=== PATIENT | female | born 1960 | race Caucasian/White ===

== ENCOUNTER 2020-06-06 13:32 | Emergency (ER) | payer MEDICAID, SELFPAY ==
[2020-06-06 14:00] VITALS: BP 147/88; PULSE 104; RESP 17; TEMP 36.7; O2SAT 95; BMI 31.8
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
--- NOTE | 2020-06-06 15:56 | PC.NURSE ---
WAITING FOR ENGINE REPAIRER SERVICE FOR D/C.
[2020-06-06 16:00] VITALS: BP 136/77; PULSE 84; RESP 16; O2SAT 97
== END 2020-06-06 16:09 | disposition home or self-care (01) ==
PROVIDERS: Emergency Provider Emergency Medicine; PCP Internal Medicine
DX: S00.531A Contusion of lip, initial encounter (principal); S00.511A Abrasion of lip, initial encounter; Y93.9 Activity, unspecified; V43.52XA Car driver injured in collision with other type car in traffic accident, initial encounter; R51.9 Headache, unspecified; Y92.410 Unspecified street and highway as the place of occurrence of the external cause; Y99.9 Unspecified external cause status
CPT/HCPCS: 99283; 99284

== ENCOUNTER 2021-09-13 08:40 | Emergency (ER) | payer MEDICAID, SELFPAY ==
--- NOTE | ~2021-09-13 | XR_ITS ---
EXAMINATION: LEFT HAND. CLINICAL INFORMATION: Injury. COMPARISON: None TECHNIQUE: 4 views. FINDINGS: There is loss of PIP and DIP joint space with periarticular spurring. There is no visible acute fracture, dislocation or subluxation seen. The soft tissues are normal. XR/XR hand wrist LT IMPRESSION: Unremarkable left hand exam.
[2021-09-13 09:00] VITALS: BP 152/85; PULSE 100; RESP 18; TEMP 36.6; O2SAT 95; BMI 33.0
--- NOTE | 2021-09-13 09:58 | ED.EXTPRO ---
HPI - Extremity Problem General Chief complaint: Extremity Injury, Upper Stated complaint: ARM PAIN Time Seen by Provider: 09/13/21 09:58 Source: patient and hourly sign language interpreter Mode of arrival: ambulatory Limitations: language barrier History of Present Illness HPI Narrative: 60-year-old female is here today for complaining of last wrist pain. Patient reports that on Monday she was cleaning the house picking up heavy objects with her both hands. Also patient reports that she was bringing in heavy groceries and on Monday patient started with left wrist pain, patient apply warm compress. Yesterday patient will call up with increased swelling and pain. Patient denies any injuries to her wrist. No previous injuries. MD Complaint: extremity pain, extremity swelling, joint swelling and joint paint Onset (ago): day(s) Pain Consistency: constant Related Data Home Medications Medication Instructions Recorded Confirmed albuterol sulfate 90 mcg/actuation 2 puff INHALATION Q4-6H PRN 07/08/20 08/31/20 aerosol inhaler amlodipine 10 mg tablet 10 mg PO DAILY 07/08/20 08/31/20 cholecalciferol (vitamin D3) 50 50 mcg PO DAILY 07/08/20 08/31/20 mcg (2,000 unit) capsule (Vitamin D3) Previous Rx's Medication Instructions Recorded ibuprofen 600 mg tablet 600 mg PO Q8H PRN #20 tab 09/13/21 Allergies Allergy/AdvReac Type Severity Reaction Status Date / Time No Known Allergies Allergy Verified 06/06/20 14:03 Review of Systems Review of Systems: Constitutional : No Weight loss, No Fever, No Chills, No Night Sweats, No Fatigue, No Malaise ENT/Mouth : No Hearing loss, No Ear Pain, No Nasal Congestion, No Sinus Pain, No Hoarseness, No sore throat, No Rhinorrhea, No Swallowing Difficulty Eyes: No Eye Pain, No Swelling, No Redness, No Foreign Body, No Discharge, No Vision Changes Cardiovascular : No Chest Pain, No SOB, No Dyspnea on Exertion, No Orthopnea, No Edema, No Palpitations Respiratory : No Cough, No Sputum, No Wheezing, No Smoke Exposure, No Dyspnea Gastrointestinal : No Nausea, No Vomiting, No Diarrhea, No Constipation, No abdominal Pain, No Hematochezia, No Melena Genitourinary : no irregular bleeding, No Dysuria, No Urinary Frequency, No Hematuria, No Urinary Incontinence, No Urgency, No Flank Pain, No Urinary Flow Changes, No Hesitancy Musculoskeletal : joint pain, Myalgias Joint Swelling, left wrist pain Skin : No Skin Lesions, No rash Neuro : No Weakness, No Numbness, No Paresthesias, No Loss of Consciousness, No Dizziness, No Headache Psych : No Anxiety/Panic, No Depression, No SI/HI/AH/VH, No Social Issues, Yes all other systems are reviewed and are negative [facility] Past Medical History Medical History (Updated 09/13/21 @ 11:51 by Chely Goodwin SAFETY ADMIN ASSISTANT-) Asthma History of depression HTN (hypertension) Surgical History History of tubal ligation No significant past surgical history Social History Social History Are you a primary clinical care manager to a significant other at home: No Do you presently have visiting nurse or other home services: No Advance Directives: No Advance Directives Information Provided: No Physical Exam Vital Signs: Vital Signs: Last Vital Signs Temp 97.8 F 09/13/21 09:00 Pulse 100 09/13/21 09:00 Resp 18 09/13/21 09:00 BP 152/85 H 09/13/21 09:00 Pulse Ox 95 09/13/21 09:00 BMI result Body Mass Index 33.0 Const: General: healthy appearing, no acute distress and well developed Nutritional Appearance: well nourished Orientation/consciousness: patient oriented x3 HENMT: Head: Yes normal to inspection, Yes normocephalic and Yes atraumatic Face and sinus: Yes normal facial exam Mouth: Normal oral and palatal mucosa present Throat: Yes posterior oropharynx normal, Yes tonsils normal and Yes uvula midline Eyes: General: appearance normal, both eyes and all related structures Neck: Neck: Yes normal visual inspection, Yes full ROM and Yes trachea midline Thyroid: Thyroid normal Resp: Effort & Inspection: normal respiratory effort, able to speak in complete sentences, no tracheal deviation and symmetric chest movement Auscultation: clear to auscultation bilaterally Cardio: Jugular venous distension: no JVD Rate: regular rate Heart sounds: S1 normal heart sound present, S2 normal heart sound present, no gallops and no murmurs GI: Inspection: Yes normal to inspection and No distended Palpation (GI): Soft to palpation, not firm, nontender and No hepatosplenomegaly present Auscultation: normal bowel sounds : General: Yes no CVA tenderness Back/Spine/Pelvis: Back: no CVA tenderness Skin: General skin exam: elasticity normal, turgor normal and dry skin Neuro: General: patient oriented x3 Extrem: Right upper extremity: normal to inspection, full ROM and normal capillary refill Left upper extremity: normal capillary refill, edema and wrist (swelling) Psych: Appearance: grossly normal Mental Status: mental status grossly normal Speech and movement: Normal speech and movement present Affect: normal affect Attitude: cooperative Thought process: Normal thought process present Thought content: Normal thought content present Insight: Good insight present (Psych) Judgement: Good judgement present (Psych) Course Course Course Narrative: Patient is here today for complaining of left wrist pain and swelling. Patient was cleaning her house on Monday and bringing groceries in. Monday woke up with left wrist pain. Denies any injuries to this wrist in the past few days. No previous injuries to her wrist. Patient woke up with swelling to her left wrist yesterday. Will x-ray her wrist. Patient took Ibuprofen at home Reevaluation(s) Reevaluation #1: X-ray negative for fracture. Will send patient home. Wrist sprain apply to her left wrist. Patient will follow-up with orthopedics. Phone number provided. Ibuprofen script will be sent to pharmacy. Patient was encouraged to keep her hand up when she is resting MDM - Extremity (Nontraumatic) Imaging Data Left wrist x-ray: Attestation: I personally reviewed and interpreted this imaging study as follows: Radiologist's impression: FINDINGS: There is loss of PIP and DIP joint space with periarticular spurring. There is no visible acute fracture, dislocation or subluxation seen. The soft tissues are normal.? XR/XR hand wrist LT IMPRESSION: Unremarkable left hand exam.? Discharge Plan Discharge Clinical Impression: Sprain and strain of wrist Patient Disposition: Home, Self-Care Instructions: Wrist Sprain (ED) Additional Instructions: Te vieron aqu? hoy por dolor en la mu?eca izquierda. La radiograf?a no muestra fractura. Aseg?rese de mantener la f?moy para la mu?eca puesta. Puede ifarh ibuprofeno para el dolor. Por favor llame al m?dico ortop?dico para irma carter. Prescriptions: New ibuprofen 600 mg tablet 600 mg PO Q8H PRN (Reason: pain) Qty: 20 0RF No Action amlodipine 10 mg Tablet 10 mg PO DAILY 0RF cholecalciferol (vitamin D3) [Vitamin D3] 50 mcg (2,000 unit) Capsule 50 mcg PO DAILY 0RF albuterol sulfate 90 mcg/actuation Hfa Aerosol Inhaler 2 puff INHALATION Q4-6H PRN (Reason: Wheezing) 0RF Referrals: Keely Townsend MD [Primary Care Provider] - 2 days Chiquita Shields MD [Physician] - 5 days (Left wrist sprain)
== END 2021-09-13 12:03 | disposition home or self-care (01) ==
PROVIDERS: Emergency Provider Emergency Medicine; PCP Internal Medicine
DX: S63.502A Unspecified sprain of left wrist, initial encounter (principal); M25.532 Pain in left wrist; Y29.XXXA Contact with blunt object, undetermined intent, initial encounter; Y93.9 Activity, unspecified; Y92.009 Unspecified place in unspecified non-institutional (private) residence as the place of occurrence of the external cause; Y99.9 Unspecified external cause status; Z79.899 Other long term (current) drug therapy
CPT/HCPCS: 73110; 73130; 99283

== ENCOUNTER 2021-09-20 14:40 | Outpatient (REF) | payer MEDICAID, SELFPAY ==
--- NOTE | ~2021-09-20 | US_ITS ---
EXAMINATION: US PELVIS CLINICAL INFORMATION: Postmenopausal bleeding. COMPARISON: None TECHNIQUE: Ultrasound of the pelvis is performed using both transabdominal and transvaginal transducers along with Doppler. Transvaginal imaging is performed due to inadequate visualization transabdominally. FINDINGS: UTERUS: The uterus is anteverted and anteflexed and measures 7.97 x 4.10 x 5.70 cm. The double wall endometrial thickness is 0.45 mm. The uterus is smooth in contour and has normal myometrial echogenicity. There are at least 3 hypoechoic lesions seen. 1. Lesion in the posterior body of uterus measures 1.13 x 0.79 x 1.67 cm. 2. Lesion in the lower posterior body of uterus measures 2.02 x 1.61 x 1.53 cm. 3. Lesion in the mid posterior body of uterus measures 1.59 x 1.65 x 1.51 cm. Adnexa: Both ovaries are visualized. There is normal color flow to the adnexa. There is no ovarian torsion. There is no pelvic ascites or fluid collection. Right ovary measures 2.15 x 1.11 x 1.77 cm and volume 2.21 mL. Left ovary measures 1.60 x 1.28 x 1.23 cm and volume 1.32 mL. There is no free fluid in the cul-de-sac. US/US pelvic and transvaginal IMPRESSION: Multiple uterine fibroids. Unremarkable ovaries. No free fluid in cul-de-sac.
== END 2021-09-20 14:41 | disposition home or self-care (01) ==
LOC: HO.HMGCX 14:40
PROVIDERS: PCP Internal Medicine; Visit Provider Advanced Practice Midwife
DX: N95.0 Postmenopausal bleeding (principal)
CPT/HCPCS: 76830; 76856

== ENCOUNTER → 2021-09-29 13:53 | Outpatient (BNVA) | payer MEDICAID, SELFPAY | PROVIDERS: PCP Internal Medicine; Visit Provider Physician Assistant | DX: M65.4 Radial styloid tenosynovitis [de Quervain] (principal) | CPT/HCPCS: 99202 ==

== ENCOUNTER 2021-10-13 11:06 | Outpatient (REF) | payer MEDICAID, SELFPAY ==
[2021-10-16 17:02] LABS: HPV mRNA E6/E7 rflx Not Detected (Not Detected)
== END 2021-10-13 11:07 | disposition home or self-care (01) ==
LOC: HO.LAB 11:06
PROVIDERS: Visit Provider Obstetrics & Gynecology
DX: Z12.4 Encounter for screening for malignant neoplasm of cervix (principal); Z11.51 Encounter for screening for human papillomavirus (HPV); N95.0 Postmenopausal bleeding
CPT/HCPCS: 87624; 88142; 99202

== ENCOUNTER 2021-11-02 08:48 | Outpatient (REF) | payer MEDICAID, SELFPAY | END 2021-11-02 08:49 | disposition home or self-care (01) | LOC: HO.LAB 08:48 | PROVIDERS: Visit Provider Obstetrics & Gynecology | DX: N95.0 Postmenopausal bleeding (principal) | CPT/HCPCS: 58100; 88305 ==

== ENCOUNTER → 2021-11-17 13:13 | Outpatient (BNVA) | payer MEDICAID, SELFPAY | PROVIDERS: Visit Provider Obstetrics & Gynecology | DX: N95.0 Postmenopausal bleeding (principal); D25.9 Leiomyoma of uterus, unspecified; Z98.890 Other specified postprocedural states | CPT/HCPCS: 99212 ==

== ENCOUNTER 2021-12-08 14:58 | Outpatient (REF) | payer MEDICAID, SELFPAY ==
--- NOTE | ~2021-12-08 | US_ITS ---
EXAMINATION: US PELVIS CLINICAL INFORMATION: Myoma. COMPARISON: Ultrasound pelvis 09/20/2021. TECHNIQUE: Ultrasound of the pelvis is performed using both transabdominal and transvaginal transducers along with Doppler. Transvaginal imaging is performed due to inadequate visualization transabdominally. FINDINGS: UTERUS: The uterus is anteverted, anteflexed and measures 8.3 x 3.7 x 5.3 cm. The double wall endometrial thickness is 0.6 mm. The uterus is smooth in contour and has normal myometrial echogenicity. There are several hypoechoic lesions consistent with fibroids. 1. Lesion in mid posterior body of uterus measures 2.5 x 1.8 x 2.6 cm. Previously measured 2.0 x 1.6 x 1.5 cm. 2. Lesion in the mid posterior body of uterus measures 1.4 x 1.0 x 1.4 cm. Previously it measured 1.6 x 1.7 x 1.5 cm. 3. Lesion in the upper posterior body of uterus measures 1.2 x 0.9 x 1.3 cm. Previously it measured 1.1 x 0.8 x 1.7 cm. ADNEXA: Both ovaries are visualized. There is normal color flow to the adnexa. There is no ovarian torsion. There is no pelvic ascites or fluid collection. Right ovary measures 1.5 x 0.9 x 1.2 cm. There are small echogenic calcifications within. Previously right ovary measured 2.2 x 1.8 x 1.8 cm. Left ovary measures 1.7 x 1.1 x 1.3 cm. There are a few scattered echogenic calcifications. No focal lesion seen. Previously left ovary measured 1.6 x 1.3 x 1.2 cm. US/US pelvic and transvaginal IMPRESSION: At least 3 uterine fibroids which are stable or minimally increased. No additional fibroid seen. Small echogenic calcifications both ovaries. No anechoic cyst or solid mass is seen. There is no free fluid in cul-de-sac.
== END 2021-12-08 14:59 | disposition home or self-care (01) ==
LOC: HO.US 14:58
PROVIDERS: Visit Provider Obstetrics & Gynecology
DX: D21.9 Benign neoplasm of connective and other soft tissue, unspecified (principal)
CPT/HCPCS: 76830; 76856

== ENCOUNTER → 2021-12-22 13:44 | Outpatient (BNVA) | payer MEDICAID, SELFPAY | PROVIDERS: PCP Internal Medicine; Visit Provider Obstetrics & Gynecology | DX: D21.9 Benign neoplasm of connective and other soft tissue, unspecified (principal); N95.0 Postmenopausal bleeding | CPT/HCPCS: 99212 ==

== ENCOUNTER 2021-12-23 09:18 | Outpatient (REF) | payer MEDICAID, SELFPAY ==
--- NOTE | ~2021-12-23 | XR_ITS ---
EXAMINATION: XR FOOT, LEFT CLINICAL INFORMATION: Left foot pain COMPARISON: None TECHNIQUE: AP, lateral, and oblique views of the left foot. FINDINGS: The bones and soft tissues are normal. No fracture. There is plantar calcaneal spur Alignment is anatomic. Joint spaces are maintained. XR/XR foot LT min 3V IMPRESSION: Plantar calcaneal spur.
--- NOTE | ~2021-12-23 | XR_ITS ---
EXAMINATION: XR HAND, RIGHT CLINICAL INFORMATION: The liver finger of middle finger COMPARISON: None TECHNIQUE: PA, lateral, and oblique views of the right hand. FINDINGS: The bones and soft tissues are normal. No fracture. Alignment is anatomic. Joint spaces are maintained. No erosions or soft tissue calcifications. XR/XR hand RT min 3V IMPRESSION: Normal right hand.
== END 2021-12-23 09:19 | disposition home or self-care (01) ==
LOC: HO.XRAY 09:18
PROVIDERS: PCP Internal Medicine; Visit Provider Internal Medicine
DX: M65.331 Trigger finger, right middle finger (principal); M79.672 Pain in left foot
CPT/HCPCS: 73130; 73630

== ENCOUNTER 2021-12-23 10:00 | Outpatient (RCR) | payer MEDICAID, SELFPAY ==
--- NOTE | 2021-12-06 11:42 | MHC.OT.EP ---
[address] [phone] Occupational Therapy Plan of Care Date of Evaluation: 12/06/21 Diagnosis: B/L hand pain; Left CTS, B/L trigger fingers Assessment: 61 yo female referred to OT w/ radial tenosynovitis and presents w/ c/o bilateral hand pain, left worse than right, with increase in symptoms and numbness/cramping during the nighttime. During assessment, she is somewhat vague about specific aggravating activities and qualifying/describing pain, but signs/symptoms appear to be consistent with carpal tunnel syndrome (with positive Tinel's and Phalen's on left) and trigger fingers in both long fingers, right side grade 2/3 and left grade 1. No muscle atrophy or weakness noted at this time, she has full ROM but is guarded due to pain in digits. We will continue OT for treatment of pain and numbness as well as education for joint protection and activity modification. Frequency and Duration: The patient will be seen 2x/wk for 4 weeks Short Term Goals: Ind w/ nighttime orthosis wear (oval 8 and resting wrist) Ind w/ median nerve glides Ind w/ activity modification to minimize gripping Intermediate Goals: Pt to report ease in nighttime symptoms with use of orthosis Pt to demo full passive composite fist w/ ease (assisted by other hand) Progress to full upper body strengthening program Pt to report trigger free for >1 week in right hand Treatment Plan: Therapeutic Exercise Therapeutic Activity Home Exercise Program Splinting Patient Education ADL Training Paraffin Fluidotherapy MHP Cold Packs Joint Mobilization Soft Tissue Mobilization Kinesiotaping Electronically Signed By: RAMY Hernandez/L CHT Please Sign and return to therapist. Thank you once again for your referral.
--- NOTE | 2021-12-28 10:18 | MHC.OT.DC ---
[address] [phone] F: [phone] Occupational Therapy Discharge Note Provider: Deidre Singh PA-C Diagnosis: B/L hand pain; Left CTS, B/L trigger fingers Date of Evaluation: 12/06/21 Date of Discharge: 12/28/21 Treatments to Date: 6 Discharge Status: Improved Function Independent with HEP Discharge Summary: Holly was referred to OT for B/L hand pain due to left CTS and B/L trigger fingers. She reports overall improvements in CTS symptoms and has good follow through w/ nighttime orthosis wear and nerve glides. She also has less frequency of triggering fingers, but still occurring daily and is inconsistent w/ oval 8 or MCP block wear. She is Ind w/ self management of CTS and would benefit from surgical consultation if interested for trigger fingers. Electronically Signed By: Mitzi Jeff, OTR/L CHT Please Sign and return to therapist, thank you for your referral.
== END 2021-12-28 10:18 | disposition home or self-care (01) ==
LOC: HO.OT 10:00
PROVIDERS: PCP Internal Medicine; Visit Provider Physician Assistant
DX: M65.4 Radial styloid tenosynovitis [de Quervain] (principal)
CPT/HCPCS: 29130; 97018; 97035; 97110; 97140; 97166; 97760

== ENCOUNTER 2022-01-14 08:39 | Day surgery (SDC) | payer MEDICAID, SELFPAY ==
[2021-12-27 16:07] VITALS: BMI 34.0
--- NOTE | 2021-12-30 08:45 | P.CONAN_ITS ---
HPI - Anesthesia Eval Consult details Narrative: 61yo F for D&C Hysteroscopy, possible polypectomy/myomectomy PMFSH Active Problems Active Problems: All Active Problems (Updated 10/13/21 @ 11:27 by Dre Abebe MD) Myoma (Acute) Postmenopausal bleeding (Acute) De Quervain's tenosynovitis, left (Acute) Past Medical History Medical History Asthma History of depression HTN (hypertension) Surgical History Surgical History History of tubal ligation No significant past surgical history Social History Social History Are you a primary student career development specialist to a significant other at home: No Do you presently have visiting nurse or other home services: No Patient Tobacco Use Status: Never used Tobacco Meds Allergies Allergy/AdvReac Type Severity Reaction Status Date / Time No Known Allergies Allergy Verified 01/14/22 09:07 Home Medications Medication Instructions Recorded Confirmed Last Taken Type albuterol sulfate 90 mcg/actuation 2 puff inhalation Q4-6H PRN 07/08/20 08/31/20 Unknown History aerosol inhaler Wheezing amlodipine 10 mg tablet 10 mg PO DAILY 07/08/20 08/31/20 01/14/22 History cholecalciferol (vitamin D3) 50 50 mcg PO DAILY 07/08/20 08/31/20 Unknown History mcg (2,000 unit) capsule (Vitamin D3) Exam Exam Date and Time: December 30, 2021 0845 Height,Weight and Vital Signs: Height 5 ft 2 in Weight 84.368 kg Assessment and Plan Assessment Anesthesia Assessment: Chart Reviewed
[2022-01-14] VITALS (7 sets, daily range): BP systolic 115–148; BP diastolic 78–94; PULSE 81–95; RESP 16–20; TEMP 36.3–36.8; O2SAT 94–99
[2022-01-14] MEDS: Lactated Ringers 1,000 ML 100 ML IVCONT (09:05)
--- NOTE | 2022-01-14 09:24 | HO.ANESPROP2 ---
[facility] Active Problems Active Problems: All Active Problems (Updated 10/13/21 @ 11:27 by Dre Abebe MD) Myoma (Acute) Postmenopausal bleeding (Acute) De Quervain's tenosynovitis, left (Acute) Past Medical History Medical History Asthma History of depression HTN (hypertension) Family History Family history of problems with anesthesia: No Surgical History Surgical History History of tubal ligation No significant past surgical history History of Problems with Anesthesia: No Social History Social History Are you a primary vehicle care specialist to a significant other at home: No Do you presently have visiting nurse or other home services: No Patient Tobacco Use Status: Never used Tobacco Are you DNR?: No Advance Directives: No Advance Directives Information Provided: Yes Meds Allergies Allergy/AdvReac Type Severity Reaction Status Date / Time No Known Allergies Allergy Verified 01/14/22 09:07 Active Medications: Current Medications Albuterol Sulfate (Albuterol Sulfate (0.083%) 2.5 Mg/3 Ml Vial.Neb) 2.5 mg INHALE ONCE PRN PRN Reason: Shortness of Breath/Wheezing Lactated Ringer's (Lr) 1,000 mls @ 100 mls/hr IVCONT .Q10H CHARLES Last Admin: 01/14/22 09:05 Dose: 100 mls/hr Ondansetron HCl (Ondansetron Hcl 4 Mg/2 Ml Vial) 4 mg IVPUSH ONCE PRN PRN Reason: Nausea and Vomiting Oxycodone HCl (Oxycodone Hcl Immed Release 5 Mg Tablet) 5 mg PO ONCE PRN PRN Reason: Pain, Severe (Pain Scale 7-10) Home Medications Medication Instructions Recorded Confirmed Last Taken Type albuterol sulfate 90 mcg/actuation 2 puff inhalation Q4-6H PRN 07/08/20 08/31/20 Unknown History aerosol inhaler Wheezing amlodipine 10 mg tablet 10 mg PO DAILY 07/08/20 08/31/20 01/14/22 History cholecalciferol (vitamin D3) 50 50 mcg PO DAILY 07/08/20 08/31/20 Unknown History mcg (2,000 unit) capsule (Vitamin D3) Exam Exam Date and Time: January 14, 2022923 Height,Weight and Vital Signs: Height 5 ft 2 in Weight 84.368 kg Last Vital Signs Temp 97.5 F 01/14/22 09:04 Pulse 95 01/14/22 09:04 Resp 18 01/14/22 09:04 BP 124/80 01/14/22 09:04 Pulse Ox 95 01/14/22 09:04 O2 Del Method 01/14/22 09:04 Airway Mallampati Class: IV TM Dist: >3cm Neck ROM: Full Denture: Upper Partial: Lower Loose/Missing/Broken Teeth: Yes and Lower Heart: rrr Lungs: cleat Assessment and Plan Final Anesthetic Review Family History of Problems with Anesthesia: No History of Problems with Anesthesia: No ASA Class: II Final Preanesthetic Review: No Changes in Pt Med Stat, Meds/Allgs Chart Reviewed, Consent Obtained/Reviewed and Anes Risks/Benef Reviewed Patient Risk: Intermediate Procedure Risk: Low Anesthetic Plan Anesthetic Plan: GA Disposition: Standard PACU
--- NOTE | 2022-01-14 09:29 | MHC.SHP ---
Pre-Procedural Eval Section A Date of Service: 01/14/22 The patient is an INPATIENT: No Changes since office visit: No Cold of Flu in the past 2 weeks, No New Medical Problems, No Changes in Medication and No Patient answered all questions The History & Physical has been completed within 30 days and I have reviewed it.: Yes Section B Chief Complaint: bleeding Allergies: Allergies Allergy/AdvReac Type Severity Reaction Status Date / Time No Known Allergies Allergy Verified 01/14/22 09:07 Plan Diagnosis/Plan: Unchanged I have reviewed the history and physical and performed a pertinent physical examination on my patient. No changes have occurred unless specified.
--- NOTE | 2022-01-14 11:19 | P.BOP_ITS ---
Brief Operative Note Date of Service: 01/14/22 Pre-op diagnosis: Postmenopausal bleeding with possible endometrial polyp Post-op diagnosis: same (Endometrial polyp seen in utero) Procedure: Hysteroscopic polypectomy and D&C Surgeon: Dre Abebe MD Anesthesia: MAC Was an Senior Contracts Manager used for this Procedure?: No Estimated blood loss (mL): 0 Pathology: other (Endometrial scrapings and endometrial polyp) Condition: stable Disposition: PACU
--- NOTE | 2022-01-14 12:17 | P.OP_ITS ---
Operative Note Operative Note Date of Service: 01/14/22 Narrative: Preop Diagnosis: Postmenopausal bleeding and Endometrial polyp Operation: Diagnostic Hysteroscopy, Dilataion & Curettage and polypectomy Post Op Diagnosis: Endometrial Polyp QBL: Minimal Anesthesia: MAC Surgeon: Dre Abebe MD Calendering Machine Operator: None Complication: None Pathology: Endometrial Scrapings, Endometrial polyp Procedure: The patient was put in the dorsal lithotomy position, scrubbed, and draped in the usual manner. A sterile speculum was inserted in the patient's vagina. The anterior lip of the cervix was grasped with a single tooth tenaculum. The cervix was dilated up to 5 mm, then the scope was inserted in the patient's uterus. Inspection revealed endometrial polyp. The Myosure Reach device was used; it was introduced through the operative channel and polypectomy done with no complications. Sharp curettings was carried on afterwards with mild amount of tissues retrieved after removing the scope from the uterine cavity. At the end of the procedure, all instruments were taken out of the patient uterine and vaginal cavity. The single tooth tenaculum was removed and homeostasis was assured using pressure,. The patient tolerated the procedure well and was transferred to the PACU in a stable condition.
--- NOTE | 2022-01-14 14:05 | PC.NURSE ---
All instructions reviewed with patient with the assistance of [facility] [place] [employer] Maintenance Electrician. Patient does not have any questions
== END 2022-01-14 14:15 | disposition home or self-care (01) ==
PROVIDERS: PCP Internal Medicine; Visit Provider Obstetrics & Gynecology
PROC: 0UDB8ZZ Extraction of Endometrium, Via Natural or Artificial Opening Endoscopic (ICD-10-PCS; CPT 58558; principal; 2022-01-14 11:20)
DX: N95.0 Postmenopausal bleeding (principal); N84.0 Polyp of corpus uteri; D21.9 Benign neoplasm of connective and other soft tissue, unspecified; I10 Essential (primary) hypertension; J45.909 Unspecified asthma, uncomplicated; Z98.51 Tubal ligation status; Z79.899 Other long term (current) drug therapy
CPT/HCPCS: 58558; 88305; J1100; J2250; J2370; J2405; J3010

== ENCOUNTER → 2022-01-27 09:07 | Outpatient (BNVA) | payer MEDICAID, SELFPAY | PROVIDERS: PCP Internal Medicine; Visit Provider Obstetrics & Gynecology | DX: N95.0 Postmenopausal bleeding (principal) | CPT/HCPCS: 99212 ==

== ENCOUNTER 2022-03-23 11:03 | Outpatient (REF) | payer MEDICAID, SELFPAY ==
--- NOTE | ~2022-03-23 | MM_ITS ---
EXAMINATION: MM SCREENING DIGITAL BREAST TOMOSYNTHESIS, BILATERAL CLINICAL INFORMATION: Screening. Asymptomatic. The lifetime risk of breast cancer based on the Tyrer-Cuzick Model is 5%. COMPARISON: Mammography: 02/07/2020 (new baseline). TECHNIQUE: Digital breast tomosynthesis is performed in both the craniocaudal and mediolateral oblique views along with computer-aided detection (CAD). Synthesized 2D images are generated from the tomosynthesis. FINDINGS: There are scattered areas of fibroglandular density (ACR BI-RADS breast composition Category b). There are no significant masses, abnormal calcifications, or other abnormalities. Parenchymal pattern is similar to prior studies. Skin contours are smooth. No significant changes. MM/MM tomosynthesis screening BI IMPRESSION: No mammographic evidence of malignancy. ASSESSMENT: BI-RADS 1: Negative RECOMMENDATION: Routine annual mammography screening. This patient's information was entered into a reminder system with a target due date for their next mammogram.
== END 2022-03-23 11:04 | disposition home or self-care (01) ==
LOC: HO.MAMMO 11:03
PROVIDERS: PCP Internal Medicine; Visit Provider Internal Medicine
DX: Z12.31 Encounter for screening mammogram for malignant neoplasm of breast (principal)
CPT/HCPCS: 77063; 77067

== ENCOUNTER 2022-05-06 10:34 | Emergency (ER) | payer MEDICAID, SELFPAY ==
--- NOTE | ~2022-05-06 | XR_ITS ---
EXAMINATION: XR CHEST CLINICAL INFORMATION: Cough COMPARISON: January 11, 2018 TECHNIQUE: Frontal view of the chest was obtained. FINDINGS: No significant abnormality is noted involving the heart, lungs, mediastinum, bony thorax or soft tissues. There is calcific tendinitis of the left shoulder. XR/XR chest 1V IMPRESSION: No acute disease.
[2022-05-06 10:45] VITALS: BP 143/75; PULSE 74; RESP 24; TEMP 36.8; O2SAT 95; BMI 35.2
[2022-05-06 14:08] VITALS: BP 145/78; PULSE 77; RESP 16; TEMP 36.6; O2SAT 97
--- NOTE | 2022-05-06 17:28 | ED_ITS ---
HPI - Asthma General Chief Complaint: Asthma Stated Complaint: athma/wheezing/SOB Time Seen by Provider: 05/06/22 17:27 Source: patient and historic interpreter Mode of arrival: ambulatory Limitations: language barrier History of Present Illness HPI Narrative: Patient is a 61 year old assigned female at with a history of asthma presenting to the emergency department today with a cough. Patient states that over the last week she has had a cough that is worsening. Patient states that she was just prescribed prednisone but does not have a nebulizer machine at home. Patient denies any dizziness, lightheadedness, abdominal pain, nausea, vomiting, fever, chills, blurry vision, double vision, loss of vision, chest pain, difficulty breathing, shortness of breath, back pain, night sweats, pain with urination, increased urinary frequency, increased urinary urgency, blood in her urine or stool, syncope or a near syncopal episode, recent trauma or falls, bowel incontinence, bladder incontinence, bowel retention, bladder retention, or any other complaints at this time. MD complaint: wheezing Onset (ago): day(s) (3) Severity: mild Associated symptoms: none Treatments Prior to Arrival: inhaled bronchodilator Related Data Current Asthma Therapy: inhaled bronchodilator and recent oral steroid Home Medications Medication Instructions Recorded Confirmed albuterol sulfate 90 mcg/actuation 2 puff inhalation Q4-6H PRN 07/08/20 08/31/20 aerosol inhaler Wheezing amlodipine 10 mg tablet 10 mg PO DAILY 07/08/20 08/31/20 cholecalciferol (vitamin D3) 50 50 mcg PO DAILY 07/08/20 08/31/20 mcg (2,000 unit) capsule (Vitamin D3) Previous Rx's Medication Instructions Recorded ibuprofen 600 mg tablet 600 mg PO Q8H PRN pain #20 tabs 09/13/21 nebulizers (AeroEclipse II #1 ea 05/06/22 Nebulizer) Allergies Allergy/AdvReac Type Severity Reaction Status Date / Time No Known Allergies Allergy Verified 05/06/22 10:45 Review of Systems Constitutional: Constitutional: Reports no additional constitutional complai nts, Denies chills, Denies fever(s) and Denies night sweats Eyes: Eyes: Reports no additional eye complaints, Denies blurry vision, Denies change in vision, Denies diplopia, Denies eye discharge, Denies loss of vision and Denies eye pain ENT: Denies dizziness Cardiovascular: Cardiovascular: Reports no additional cardiovascular complaints, Denies chest pain, Denies lightheadedness, Denies Loss of Consciousness and Denies dyspnea Respiratory: Respiratory: Reports no additional respiratory complaints, Reports cough, Denies dyspnea and Reports wheezing Gastrointestinal: Gastrointestinal: Reports no additional gastrointestinal complaints, Denies abdominal pain, Denies melena, Denies hematochezia, Denies change in bowel habits and Denies change in stool character Genitourinary: Genitourinary: Denies hematuria, Denies urinary frequency, Denies dysuria, Denies urinary incontinence, Denies urinary hesitancy and Denies urinary urgency Musculoskeletal: Musculoskeletal: Reports no additional musculoskeletal complaints, Denies numbness and Denies tingling Neurologic: Denies dizziness, Denies loss of vision, Denies numbness and Denies tingling Psychiatric: Psychiatric: Reports no additional psychiatric complaints Endocrine: Endocrine: Reports no additional endocrine complaints Hematologic/Lymphatic: Hematologic/Lymphatic: Reports no additional hematologic/lymphatic complaints Allergic/Immunologic: Allergic/Immunologic: Reports no additional allergic/immunologic complaints and Reports wheezing PMFSH Past Medical History Attestation statement: The following information was validated with the patient. Source: old records reviewed Medical History Asthma History of depression HTN (hypertension) Surgical History History of tubal ligation No significant past surgical history Social History Social History Are you a primary care transitions manager to a significant other at home: No Do you presently have visiting nurse or other home services: No Patient Tobacco Use Status: Never used Tobacco Advance Directives: No Advance Directives Information Provided: No Physical Exam Vital Signs: Vital Signs: Last Vital Signs Temp 99.7 F 05/06/22 17:30 Pulse 77 05/06/22 17:30 Resp 18 05/06/22 17:30 BP 150/75 H 05/06/22 17:30 Pulse Ox 97 05/06/22 17:30 O2 Del Method 05/06/22 17:30 BMI result Body Mass Index 35.2 Const: General: cooperative, no acute distress, alert and awake Nutritional Appearance: well nourished Orientation/consciousness: patient oriented x3 Limitations: no limitations HEENT: Head: Yes normal to inspection and Yes atraumatic Ears: hearing grossly normal bilaterally and external ears normal General nose exam: Normal external nose present, no nasal discharge noted and no epistaxis Face and sinus: Yes normal facial exam, No abrasion and No laceration Mouth: Normal oral and palatal mucosa present, no drooling and no muffled voice Eyes: General: appearance normal, both eyes and all related structures Periorbital: periorbital findings normal Eyelids: Yes eyelids normal Conjunctivae: conjunctivae normal Pupils: Equal, round and reactive pupils present EOM: EOMs intact bilaterally Neck: Neck: Yes normal visual inspection, Yes full ROM and Yes no lymphadenopathy Chest: Chest palpation & inspection: normal inspection of the chest Resp: Effort & Inspection: normal respiratory effort, able to speak in complete sentences and Actively coughing Auscultation: wheezes scattered wheezes GI: Inspection: Yes normal to inspection Neuro: General: patient oriented x3 and moves all extremities Cranial nerves: Yes Equal, round and reactive pupils present Cognition (Neuro): normal cognition Motor exam (neuro): 5/5 motor strength present throughout Sensory Exam: Normal double simultaneous stimulation for sensation Coordination: [id number] test normal Extrem: General: Yes normal to inspection, Yes full ROM and Yes capillary refill normal Psych: Appearance: grossly normal Mental Status: mental status grossly normal Affect: normal affect Attitude: cooperative Thought process: Normal thought process present Thought content: Normal thought content present Insight: Good insight present (Psych) MDM - Asthma MDM Narrative Medical decision making narrative: Patient is a 61 year old assigned female at with a history of asthma presenting to the emergency department today with a cough and increased wheezing. Patient's physical exam showed diffuse wheezing but was otherwise unremarkable. Patient's RSV swab was positive. Patient's chest x-ray showed no acute process. I explained my physical exam findings as well as all test results to the patient. I answered all questions asked by the patient. Patient requested a breathing treatment before she leaves the department today. I stressed the importance of the patient taking her medication as prescribed. I stressed the importance of the patient following up with her primary care provider. I stressed the importance of the patient returning to the emergency department immediately if her symptoms were to worsen or if she were to develop any dizziness, shortness of breath, difficulty breathing, chest pain, blurry vision, loss of vision, nausea, vomiting, abdominal pain, fever, chills, back pain, or any other complaints. Patient verbalized agreement and understanding with this treatment plan and discharge. Medical Records Attestation: I reviewed the patient's medical records. Lab Data Attestation: I reviewed the patient's lab results. Labs: Lab Results 05/06/22 Range/Units 17:35 Influenza Type A (PCR) NEGATIVE (Negative) Influenza Type B (PCR) NEGATIVE (Negative) RSV RNA Qual (PCR) POSITIVE A (Negative) SARS-CoV-2 RNA (RT-PCR) NEGATIVE (Negative) Imaging Data Chest x-ray: Attestation: I personally reviewed and interpreted this imaging study as follows: My impression: No acute process. Radiologist's impression: EXAMINATION: XR CHEST CLINICAL INFORMATION: Cough COMPARISON: January 11, 2018 TECHNIQUE: Frontal view of the chest was obtained. FINDINGS: No significant abnormality is noted involving the heart, lungs, mediastinum, bony thorax or soft tissues. There is calcific tendinitis of the left shoulder. XR/XR chest 1V IMPRESSION: No acute disease. ? Dictated By: Yasmany Short MD Signed By: Electronically signed by Yasmany Short MD 05/06/22 135 Discharge Plan Discharge Clinical Impression: Respiratory syncytial virus (RSV) Patient Disposition: Home, Self-Care Instructions: Respiratory Syncytial Virus (ED) Additional Instructions: Follow up with your primary care provider. Return to the emergency department immediately if your symptoms worsen or if you develop any dizziness, shortness of breath, difficulty breathing, chest pain, blurry vision, loss of vision, nausea, vomiting, abdominal pain, fever, chills, back pain, or any other complaints. Pricila un seguimiento con saldaña proveedor de atenci?n primaria. Regrese al departamento de emergencias de inmediato si amelia s?ntomas empeoran o si presenta mareos, falta de aire, dificultad para respirar, dolor de pecho, visi?n borrosa, p?rdida de la visi?n, n?useas, v?mitos, dolor abdominal, fiebre, escalofr?os, dolor de espalda o cualquier otras quejas. Prescriptions: New (DME) nebulizers [AeroEclipse II Nebulizer] Misc See Rx Instructions .Route Qty: 1 0RF Rx Instructions: As directed No Action amlodipine 10 mg Tablet 10 mg PO DAILY cholecalciferol (vitamin D3) [Vitamin D3] 50 mcg (2,000 unit) Capsule 50 mcg PO DAILY albuterol sulfate 90 mcg/actuation Hfa Aerosol Inhaler 2 puff INHALATION Q4-6H PRN (Reason: Wheezing) ibuprofen 600 mg tablet 600 mg PO Q8H PRN (Reason: pain) Qty: 20 0RF Referrals: Keely Townsend MD [Primary Care Provider] - Stand Alone Forms: Work/School Release Print Language: Syriac
[2022-05-06 17:30] VITALS: BP 150/75; PULSE 77; RESP 18; TEMP 37.6; O2SAT 97
[2022-05-06 18:20] LABS: Influenza A PCR NEGATIVE (Negative); Influenza B PCR NEGATIVE (Negative); Resp Syncy Virus RNA Qual PCR POSITIVE (Negative); SARS COV2 PCR INHOUSE NEGATIVE (Negative)
[2022-05-06] MEDS: Albuterol Sulfate 5 MG, Albuterol/Iprat 2.5/0.5MG 3 ML 3 ML INHALE (18:52)
[2022-05-06 18:54] VITALS: PULSE 74; RESP 16; O2SAT 95
== END 2022-05-06 21:13 | disposition home or self-care (01) ==
PROVIDERS: Emergency Provider Emergency Medicine Emergency Medical Services; PCP Internal Medicine
DX: J22 Unspecified acute lower respiratory infection (principal); J45.909 Unspecified asthma, uncomplicated; R05.9 Cough, unspecified; R06.02 Shortness of breath; Z20.822 Contact with and (suspected) exposure to COVID-19; Z79.899 Other long term (current) drug therapy
CPT/HCPCS: 0241U; 71045; 94640; 99283; 99284

== ENCOUNTER 2022-09-09 11:34 | Outpatient (REF) | payer MEDICAID, SELFPAY ==
--- NOTE | ~2022-09-09 | US_ITS ---
EXAMINATION: US PELVIS CLINICAL INFORMATION: Postmenopausal bleeding with fibroids. COMPARISON: Ultrasound of the pelvis 12/08/2021. TECHNIQUE: Ultrasound of the pelvis is performed using both transabdominal and transvaginal transducers along with Doppler. Translabial imaging was also performed. Transvaginal imaging is performed due to inadequate visualization transabdominally. FINDINGS: UTERUS: The uterus is anteverted and measures 8.5 x 2.3 x 4.4 cm. The double wall endometrial thickness is 0.5 mm. 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 The uterus is smooth in contour and has normal myometrial echogenicity. Three uterine fibroids are present with sizes as follows, one has remained the same, one has decreased and one has increased in size: 1.1 x 0.7 x 1.3 cm (prior 1.1 x 0.7 x 1.3 cm) mid body on the left. 1.6 x 1.9 x 2.1 cm (prior 2.5 x 1.8 x 2.6 cm) lower uterine segment on the left. 1.8 x 2.0 x 2.3 cm (prior 1.4 x 1.0 x 1.4 cm) lower uterine segment on the right. ADNEXA: Both ovaries are visualized. There is normal color flow to the adnexa. Calcifications are present in both ovaries. There is no ovarian torsion. There is no pelvic ascites or fluid collection. Right ovary measures: 1.9 x 1.5 x 1.0 cm for a volume of 1.5 mL. Left ovary measures: 1.6 x 1.0 x 1.1 cm for a volume of 0.9 mL. US/US pelvic and transvaginal IMPRESSION: 1. Multiple uterine fibroids as described above. 2. Mode's duct cyst.
== END 2022-09-09 11:35 | disposition home or self-care (01) ==
LOC: HO.US 11:34
PROVIDERS: Visit Provider Obstetrics & Gynecology
DX: D21.9 Benign neoplasm of connective and other soft tissue, unspecified (principal)
CPT/HCPCS: 76830; 76856

== ENCOUNTER → 2022-09-27 10:31 | Outpatient (BNVA) | payer MEDICAID, SELFPAY | PROVIDERS: PCP Internal Medicine; Visit Provider Obstetrics & Gynecology | DX: D21.9 Benign neoplasm of connective and other soft tissue, unspecified (principal) | CPT/HCPCS: 99212 ==

== ENCOUNTER 2022-11-09 09:26 | Outpatient (REF) | payer MEDICAID, SELFPAY | END 2022-11-09 09:27 | disposition home or self-care (01) | LOC: HO.LNP 09:26 | PROVIDERS: PCP Internal Medicine; Visit Provider Obstetrics & Gynecology | DX: N95.0 Postmenopausal bleeding (principal) | CPT/HCPCS: 58100; 88305 ==

== ENCOUNTER → 2022-12-05 10:04 | Outpatient (BNVA) | payer MEDICAID, SELFPAY | PROVIDERS: PCP Internal Medicine; Visit Provider Obstetrics & Gynecology | DX: N95.0 Postmenopausal bleeding (principal) | CPT/HCPCS: 99212 ==

== ENCOUNTER 2023-02-28 08:15 | Outpatient (REF) | payer MEDICAID, SELFPAY ==
[2023-02-28 12:27] LABS: Alanine Aminotransferase 19 U/L (0-31); Albumin Level 4.3 g/dL (3.5-5.0); Alkaline Phosphatase 82 U/L (39-117); Anion Gap 14 (12-20); Aspartate Amino Transferase 22 U/L (5-31); Bilirubin Total 0.8 mg/dL (0.0-1.0); Blood Urea Nitrogen 11 mg/dL (9-16); Calcium 9.8 mg/dL (8.4-10.2); Carbon Dioxide 26 mmol/L (22-29); Chloride 106 mmol/L (96-108); Cholesterol 186 mg/dL; Estimated Glomerular Filt Rate > 60; Glucose Random 93 mg/dL (60-115); HDL Cholesterol 45 mg/dL; LDL Cholesterol Calculated 110 mg/dl; Potassium 3.7 mmol/L (3.3-5.1); Sodium 142 mmol/L (135-145); Total Protein 7.9 g/dL (6.5-8.0); Triglycerides 157 mg/dL
== END 2023-02-28 08:16 | disposition home or self-care (01) ==
LOC: HO.HHCL 08:15
PROVIDERS: Visit Provider Internal Medicine
DX: I10 Essential (primary) hypertension (principal); E78.00 Pure hypercholesterolemia, unspecified
CPT/HCPCS: 36415; 80053; 80061

== ENCOUNTER 2023-03-21 10:19 | Emergency (ER) | payer MEDICAID, SELFPAY ==
[2023-03-21 10:25] VITALS: BP 150/85; PULSE 64; RESP 16; TEMP 37.1; O2SAT 95; BMI 33.5
[2023-03-21 11:11] LABS: MANUAL DIFF FLAG NO
[2023-03-21 11:12] LABS: Basophils Percent Auto 0.5 % (0-2); Eosinophils Absolute Auto 0.3 X10*3/uL (0.0-0.4); Eosinophils Percent Auto 3.8 % (0-4); Hematocrit 44.3 % (37.0-47.0); Hemoglobin 14.7 g/dl (12.0-16.0); Imm Gran Abs Auto 0.02 X10*3/uL (0.00-0.03); Imm Gran Pct Auto 0.2 % (0.0-0.4); Lymphocytes Absolute Auto 2.6 X10*3/uL (1.2-4.9); Mean Corpuscular HGB Conc 33.2 g/dl (31.0-35.0); Mean Corpuscular Hemoglobin 30.9 pg (27.0-33.0); Mean Corpuscular Volume 93.1 fL (80.0-98.0); Mean Platelet Volume 10.2 fL (9.4-12.3); Monocytes Absolute Auto 0.9 X10*3/uL (0.1-1.2); Neutrophils Absolute Auto 4.8 x10*3/uL (2.0-8.3); Neutrophils Percent Auto 55.5 % (45-73); Platelet Count 296 X10*3/uL (160-400); Red Blood Count 4.76 X10*6/uL (4.20-5.50); White Blood Count 8.6 X10*3/uL (4.8-10.8)
--- NOTE | 2023-03-21 11:12 | ED_ITS ---
HPI - Abdominal Pain General Chief Complaint: Abdominal Pain Stated Complaint: Diarrhea since Monday Time Seen by Provider: 03/21/23 11:12 Source: patient Mode of arrival: ambulatory Limitations: no limitations History of Present Illness HPI narrative: 62 yo Kiswahili speaking female with history of asthma presents to the ER for evaluation of epigastric abdominal pain and diarrhea for the last 3 days. She states she had 22 episodes of watery diarrhea 3 days ago. She had diffuse abdominal cramping when she would have a BM. The following days the diarrhea slowed down some with imodium. She denies vomiting but it nauseated. No known sick contacts. No recent travel and no recent abx. She states the epigastric pat n was worse today so she came to the ER for evaluation. MD elicited complaint: abdominal pain Onset (ago): day(s) (3) Pain Consistency: intermittent Location: epigastric Severity: moderate Quality: cramping Radiation: none Migration to: no migration Exacerbating factors: nothing Relieving factors: nothing Associated symptoms: nausea and diarrhea Related Data Home Medications Medication Instructions Recorded Confirmed albuterol sulfate 90 mcg/actuation 2 puff inhalation Q4-6H PRN 07/08/20 08/31/20 aerosol inhaler Wheezing amlodipine 10 mg tablet 10 mg PO DAILY 07/08/20 08/31/20 cholecalciferol (vitamin D3) 50 50 mcg PO DAILY 07/08/20 08/31/20 mcg (2,000 unit) capsule (Vitamin D3) Previous Rx's Medication Instructions Recorded ibuprofen 600 mg tablet 600 mg PO Q8H PRN pain #20 tabs 09/13/21 nebulizers (AeroEclipse II #1 ea 05/06/22 Nebulizer) ondansetron 4 mg disintegrating 4 mg PO Q8H PRN nausea and 03/21/23 tablet vomiting #7 tabs Allergies Allergy/AdvReac Type Severity Reaction Status Date / Time No Known Allergies Allergy Verified 12/05/22 10:10 Review of Systems Review of Systems Yes all other systems are reviewed and are negative PMFSH Past Medical History Medical History Asthma History of depression HTN (hypertension) Surgical History History of tubal ligation No significant past surgical history Social History Social History Are you a primary infant childcare provider to a significant other at home: No Do you presently have visiting nurse or other home services: No Patient Tobacco Use Status: Never used Tobacco Advance Directives: No Advance Directives Information Provided: Yes Physical Exam ED Vital Signs: Vital Signs - 24 hr 03/21/23 10:25 Temperature 98.8 F Pulse Rate 64 Respiratory Rate 16 Blood Pressure 150/85 H Pulse Oximetry 95 Oxygen Delivery Method Room Air BMI result Body Mass Index 33.5 Appearance: Alert. Oriented X3. No acute distress. Head: normocephalic, atraumatic. Eyes: Pupils equal, round and reactive to light. ENT: Pharynx normal. No tonsillar swelling or exudate. Neck: Normal inspection. Neck supple. CVS: Normal heart rate and rhythm. Pulses normal. Respiratory: No respiratory distress. Breath sounds normal. Abdomen: Soft with mild epigastric tenderness, no RUQ tenderness. normal active +BS x4 Skin: Skin warm and dry. Normal skin color. Normal skin turgor. No rashes. Extremities: No lower extremity edema. No joint swelling. Neuro/psych: Oriented X 3. No motor deficit. No sensory deficit. CN II-XII intact. Normal speech and cognition. Medical Decision Making Medical Decision Making [facility] Narrative: 62 yo Kiswahili speaking female presenting with epigastric abdominal pain and diarrhea. VSS on arrival. Abd exam benign. Lab workup is unremarkable. No leukocytosis. No elevation of LFTs or lipase elevation. Tolerating PO in the ER. CDiff and viral studies are negative. Most likely viral etiology. Comfortable w/ d/c home w/ supportive care. Differential Diagnosis Differential Diagnoses: The differential diagnosis associated with the presentation includes colitis, gastroenteritis, pancreatitis, gastritis, Cdiff Admission/Observation Consideration of admission/observation: Escalation of care including admission/observation considered Lab Data [facility] Lab Attestation statement: I reviewed the patient's lab results. unremarkable 03/21/23 11:02 03/21/23 11:02 Labs: Lab Results 03/21/23 03/21/23 03/21/23 Range/Units 11:02 11:02 11:48 WBC 8.6 (4.8-10.8) X10*3/uL RBC 4.76 (4.20-5.50) X10*6/uL Hgb 14.7 (12.0-16.0) g/dl Hct 44.3 (37.0-47.0) % MCV 93.1 (80.0-98.0) fL MCH 30.9 (27.0-33.0) pg MCHC 33.2 (31.0-35.0) g/dl RDW 13.0 (11.0-16.0) % Plt Count 296 (160-400) X10*3/uL MPV 10.2 (9.4-12.3) fL Immature Gran % (Auto) 0.2 (0.0-0.4) % Neut % (Auto) 55.5 (45-73) % Lymph % (Auto) 30.0 (20-40) % [place] % (Auto) 10.0 (2-11) % Eos % (Auto) 3.8 (0-4) % Baso % (Auto) 0.5 (0-2) % Lymph # (Auto) 2.6 (1.2-4.9) X10*3/uL [place] # (Auto) 0.9 (0.1-1.2) X10*3/uL Eos # (Auto) 0.3 (0.0-0.4) X10*3/uL Baso # (Auto) 0.0 (0.0-0.2) X10*3/uL Abs Immat Gran (auto) 0.02 (0.00-0.03) X10*3/uL Absolute Neuts (auto) 4.8 (2.0-8.3) x10*3/uL Absolute Nucleated RBC 0.000 (0.0-0.012) X10*3/uL Nucleated RBC % (auto) 0.0 (0.0-0.2) /100WBC Sodium 142 (135-145) mmol/L Potassium 3.5 (3.3-5.1) mmol/L Chloride 108 (96-108) mmol/L Carbon Dioxide 22 (22-29) mmol/L Anion Gap 16 (12-20) BUN 11 (9-16) mg/dL Creatinine 0.78 (0.5-1.4) mg/dL Estim Creat Clear Calc 75.6 Estimated GFR > 60 Random Glucose 109 (60-115) mg/dL Calcium 10.0 (8.4-10.2) mg/dL Total Bilirubin 0.8 (0.0-1.0) mg/dL Direct Bilirubin 0.3 (0.0-0.5) mg/dL AST 24 (5-31) U/L ALT 22 (0-31) U/L Alkaline Phosphatase 86 (39-117) U/L Total Protein 8.4 H (6.5-8.0) g/dL Albumin 4.5 (3.5-5.0) g/dL Lipase 29 (8-78) U/L Urine Color Urine Appearance Urine pH (5.0-9.0) Ur Specific [place] (1.005-1.025) Urine Protein (Neg-Trace) mg/dL Urine Glucose (UA) (Negative) mg/dL Urine Ketones (Negative) mg/dL Urine Blood (Negative) Urine Nitrite (Negative) Ur Leukocyte Esterase (Negative) Stl C. cayetanensis PCR (Not Detect.) Stool Rotavirus A PCR (Not Detect.) Stl Adenov F 40/41 PCR (Not Detect.) Stool Astrovirus (PCR) (Not Detect.) Stool Campylobacter PCR (Not Detect.) Stool Cryptosporidium PCR (Not Detect.) Stl Sh Tox Pr E STEC PCR (Not Detect.) Stool E coli O157 PCR (Not Detect.) Stl Enterotoxigenic E PCR (Not Detect.) Stool EPEC (PCR) (Not Detect.) Stool EAEC (PCR) (Not Detect.) Stl E. histolytica PCR (Not Detect.) Stool Giardia Lamblia PCR (Not Detect.) Stl P. shigelloides PCR (Not Detect.) Stool Salmonella PCR (Not Detect.) Stool Sapovirus (PCR) (Not Detect.) Stl Shigella/EIEC PCR (Not Detect.) St Y.enterocolitica PCR (Not Detect.) Stool Vibrio (PCR) (Not Detect.) Stl Vibrio cholerae PCR (Not Detect.) Stl Norovirus GI/GII PCR (Not Detect.) C. difficile Tox B Gene NEGATIVE (Negative) COVID-19 (REJI) (Negative) COVID-19 Clin Com Influenza Type A (KRYSTYNA) (Negative) Influenza Type B (KRYSTYNA) (Negative) Influenza A & B Note 08/29/23 08/29/23 08/29/23 Range/Units 11:48 11:48 13:30 WBC (4.8-10.8) X10*3/uL RBC (4.20-5.50) X10*6/uL Hgb (12.0-16.0) g/dl Hct (37.0-47.0) % MCV (80.0-98.0) fL MCH (27.0-33.0) pg MCHC (31.0-35.0) g/dl RDW (11.0-16.0) % Plt Count (160-400) X10*3/uL MPV (9.4-12.3) fL Immature Gran % (Auto) (0.0-0.4) % Neut % (Auto) (45-73) % Lymph % (Auto) (20-40) % [place] % (Auto) (2-11) % Eos % (Auto) (0-4) % Baso % (Auto) (0-2) % Lymph # (Auto) (1.2-4.9) X10*3/uL [place] # (Auto) (0.1-1.2) X10*3/uL Eos # (Auto) (0.0-0.4) X10*3/uL Baso # (Auto) (0.0-0.2) X10*3/uL Abs Immat Gran (auto) (0.00-0.03) X10*3/uL Absolute Neuts (auto) (2.0-8.3) x10*3/uL Absolute Nucleated RBC (0.0-0.012) X10*3/uL Nucleated RBC % (auto) (0.0-0.2) /100WBC Sodium (135-145) mmol/L Potassium (3.3-5.1) mmol/L Chloride (96-108) mmol/L Carbon Dioxide (22-29) mmol/L Anion Gap (12-20) BUN (9-16) mg/dL Creatinine (0.5-1.4) mg/dL Estim Creat Clear Calc Estimated GFR Random Glucose (60-115) mg/dL Calcium (8.4-10.2) mg/dL Total Bilirubin (0.0-1.0) mg/dL Direct Bilirubin (0.0-0.5) mg/dL AST (5-31) U/L ALT (0-31) U/L Alkaline Phosphatase (39-117) U/L Total Protein (6.5-8.0) g/dL Albumin (3.5-5.0) g/dL Lipase (8-78) U/L Urine Color Yellow Urine Appearance Cloudy Urine pH 5.5 (5.0-9.0) Ur Specific [place] 1.025 (1.005-1.025) Urine Protein Trace (Neg-Trace) mg/dL Urine Glucose (UA) Negative (Negative) mg/dL Urine Ketones Negative (Negative) mg/dL Urine Blood Negative (Negative) Urine Nitrite Negative (Negative) Ur Leukocyte Esterase Negative (Negative) Stl C. cayetanensis PCR Not Detected (Not Detect.) Stool Rotavirus A PCR Not Detected (Not Detect.) Stl Adenov F 40/41 PCR Not Detected (Not Detect.) Stool Astrovirus (PCR) Not Detected (Not Detect.) Stool Campylobacter PCR Not Detected (Not Detect.) Stool Cryptosporidium PCR Not Detected (Not Detect.) Stl Sh Tox Pr E STEC PCR Not Detected (Not Detect.) Stool E coli O157 PCR Not applicable (Not Detect.) Stl Enterotoxigenic E PCR Not Detected (Not Detect.) Stool EPEC (PCR) Not Detected (Not Detect.) Stool EAEC (PCR) Not Detected (Not Detect.) Stl E. histolytica PCR Not Detected (Not Detect.) Stool Giardia Lamblia PCR Not Detected (Not Detect.) Stl P. shigelloides PCR Not Detected (Not Detect.) Stool Salmonella PCR Not Detected (Not Detect.) Stool Sapovirus (PCR) Not Detected (Not Detect.) Stl Shigella/EIEC PCR Not Detected (Not Detect.) St Y.enterocolitica PCR Not Detected (Not Detect.) Stool Vibrio (PCR) Not Detected (Not Detect.) Stl Vibrio cholerae PCR Not Detected (Not Detect.) Stl Norovirus GI/GII PCR Not Detected (Not Detect.) C. difficile Tox B Gene (Negative) COVID-19 (REJI) (Negative) COVID-19 Clin Com Influenza Type A (KRYSTYNA) Negative (Negative) Influenza Type B (KRYSTYNA) Negative (Negative) Influenza A & B Note See Note 03/21/23 Range/Units 13:30 WBC (4.8-10.8) X10*3/uL RBC (4.20-5.50) X10*6/uL Hgb (12.0-16.0) g/dl Hct (37.0-47.0) % MCV (80.0-98.0) fL MCH (27.0-33.0) pg MCHC (31.0-35.0) g/dl RDW (11.0-16.0) % Plt Count (160-400) X10*3/uL MPV (9.4-12.3) fL Immature Gran % (Auto) (0.0-0.4) % Neut % (Auto) (45-73) % Lymph % (Auto) (20-40) % [place] % (Auto) (2-11) % Eos % (Auto) (0-4) % Baso % (Auto) (0-2) % Lymph # (Auto) (1.2-4.9) X10*3/uL [place] # (Auto) (0.1-1.2) X10*3/uL Eos # (Auto) (0.0-0.4) X10*3/uL Baso # (Auto) (0.0-0.2) X10*3/uL Abs Immat Gran (auto) (0.00-0.03) X10*3/uL Absolute Neuts (auto) (2.0-8.3) x10*3/uL Absolute Nucleated RBC (0.0-0.012) X10*3/uL Nucleated RBC % (auto) (0.0-0.2) /100WBC Sodium (135-145) mmol/L Potassium (3.3-5.1) mmol/L Chloride (96-108) mmol/L Carbon Dioxide (22-29) mmol/L Anion Gap (12-20) BUN (9-16) mg/dL Creatinine (0.5-1.4) mg/dL Estim Creat Clear Calc Estimated GFR Random Glucose (60-115) mg/dL Calcium (8.4-10.2) mg/dL Total Bilirubin (0.0-1.0) mg/dL Direct Bilirubin (0.0-0.5) mg/dL AST (5-31) U/L ALT (0-31) U/L Alkaline Phosphatase (39-117) U/L Total Protein (6.5-8.0) g/dL Albumin (3.5-5.0) g/dL Lipase (8-78) U/L Urine Color Urine Appearance Urine pH (5.0-9.0) Ur Specific [place] (1.005-1.025) Urine Protein (Neg-Trace) mg/dL Urine Glucose (UA) (Negative) mg/dL Urine Ketones (Negative) mg/dL Urine Blood (Negative) Urine Nitrite (Negative) Ur Leukocyte Esterase (Negative) Stl C. cayetanensis PCR (Not Detect.) Stool Rotavirus A PCR (Not Detect.) Stl Adenov F 40/41 PCR (Not Detect.) Stool Astrovirus (PCR) (Not Detect.) Stool Campylobacter PCR (Not Detect.) Stool Cryptosporidium PCR (Not Detect.) Stl Sh Tox Pr E STEC PCR (Not Detect.) Stool E coli O157 PCR (Not Detect.) Stl Enterotoxigenic E PCR (Not Detect.) Stool EPEC (PCR) (Not Detect.) Stool EAEC (PCR) (Not Detect.) Stl E. histolytica PCR (Not Detect.) Stool Giardia Lamblia PCR (Not Detect.) Stl P. shigelloides PCR (Not Detect.) Stool Salmonella PCR (Not Detect.) Stool Sapovirus (PCR) (Not Detect.) Stl Shigella/EIEC PCR (Not Detect.) St Y.enterocolitica PCR (Not Detect.) Stool Vibrio (PCR) (Not Detect.) Stl Vibrio cholerae PCR (Not Detect.) Stl Norovirus GI/GII PCR (Not Detect.) C. difficile Tox B Gene (Negative) COVID-19 (REJI) Negative (Negative) COVID-19 Clin Com See Note Influenza Type A (KRYSTYNA) (Negative) Influenza Type B (KRYSTYNA) (Negative) Influenza A & B Note External Record Review External record reviewed: Outpatient record, Prior outpatient labs and Prior outpatient radiology Tests considered The following testing was considered but not selected: CT scan abd considered but abd exam benign and labs normal Prescription Management I considered prescription management with: Pain Medication and Antibiotic Medications Administered Discontinued Medications Generic Name Dose Route Start Last Admin Trade Name Freq PRN Reason Stop Dose Admin Al Hydroxide/Mg Hydroxide 30 ml 03/21/23 13:29 03/21/23 13:39 Magnesium Hydrox/Alum Hydrox 30 Ml Oral.Susp PO 03/21/23 13:30 30 ml ONCE ONE Administration Ondansetron HCl 4 mg 03/21/23 13:29 03/21/23 13:38 Ondansetron Odt 4 Mg Tab.Hooddis TRANSLINGU 03/21/23 13:30 4 mg ONCE ONE Administration Critical Care Time Critical Care Time Critical Care Time: No Discharge Plan Discharge Clinical Impression: Gastroenteritis Patient Disposition: Home, Self-Care Instructions: Gastroenteritis (DC) Additional Instructions: You lab workup today was unremarkable. Your urine test was negative for infection. You most likely have a viral GI bug also known as gastroenteritis. Treatment is supportive care, symptoms usually resolve on their own in 48-72 hours. Recommend rest and plenty of oral hydration. Stick to a bland diet like soup and toast while you are not feeling well. Take the prescribed medication as needed for nausea. Recommend over the counter Pepto Bismol or Imodium for upset stomach and diarrhea. Follow up with your doctor as needed. If you develop new or worsening symptoms call 911 or come back to the ER for further evaluation. Tu an?lisis de laboratorio de hoy no fue nada especial. Saldaña prueba de orina fue negativa para infecci?n. Lo m?s probable es que tengas un virus gastrointestinal viral, tambi?n co nocido raheem gastroenteritis. El tratamiento consiste en cuidados de apoyo; los s?ntomas suelen resolverse por s? solos en 48 a 72 horas. Recomendar reposo y mohsen hidrataci?n bucal. Siga rima dieta blanda raheem sopa y tostadas mientras no se sienta joão. [place] el medicamento recetado seg?n sea necesario para las n?useas. Recomiende Pepto Bismol o Imodium de venta meryl para el malestar estomacal y la diarrea. Pricila un seguimiento con saldaña m?dico seg?n sea necesario. Si desarrolla s?ntomas nuevos o que empeoran, llame al 911 o regrese a la nicolas de emergencias para irma evaluaci?n adicional. Prescriptions: New ondansetron 4 mg tablet,disintegrating 4 mg PO Q8H PRN (Reason: nausea and vomiting) Qty: 7 0RF No Action amlodipine 10 mg Tablet 10 mg PO DAILY cholecalciferol (vitamin D3) [Vitamin D3] 50 mcg (2,000 unit) Capsule 50 mcg PO DAILY albuterol sulfate 90 mcg/actuation Hfa Aerosol Inhaler 2 puff INHALATION Q4-6H PRN (Reason: Wheezing) ibuprofen 600 mg tablet 600 mg PO Q8H PRN (Reason: pain) Qty: 20 0RF (DME) nebulizers [AeroEclipse II Nebulizer] Misc See Rx Instructions .Route Qty: 1 0RF Rx Instructions: As directed Print Language: Kiswahili
[2023-03-21 11:35] LABS: Alanine Aminotransferase 22 U/L (0-31); Albumin Level 4.5 g/dL (3.5-5.0); Alkaline Phosphatase 86 U/L (39-117); Anion Gap 16 (12-20); Aspartate Amino Transferase 24 U/L (5-31); Bilirubin Direct 0.3 mg/dL (0.0-0.5); Bilirubin Total 0.8 mg/dL (0.0-1.0); Blood Urea Nitrogen 11 mg/dL (9-16); Carbon Dioxide 22 mmol/L (22-29); Chloride 108 mmol/L (96-108); Creatinine Clr Calc Pharmacy 75.6; Estimated Glomerular Filt Rate > 60; Glucose Random 109 mg/dL (60-115); Lipase 29 U/L (8-78); Potassium 3.5 mmol/L (3.3-5.1); Sodium 142 mmol/L (135-145); Total Protein 8.4 g/dL (6.5-8.0)
[2023-03-21 12:18] LABS: Appearance Urine Cloudy; Color Urine Yellow; Glucose Urine UA Negative (Negative); Leukocyte Esterase Urine Negative (Negative); Nitrite Urine Negative (Negative); PH 5.5 (5.0-9.0); Specific Gravity - Urine 1.025 (1.005-1.025); Urine Blood Negative (Negative); Urine Ketones Negative (Negative); Urine Protein Trace mg/dL (Neg-Trace)
[2023-03-21 13:10] LABS: CDiff Gene PCR NEGATIVE (Negative)
[2023-03-21] MEDS: Ondansetron ODT 4 MG TAB.RAPDIS TRANSLINGU (13:38)
[2023-03-21] MEDS: Magnesium Hydrox/Alum Hydrox 30 ML ORAL.SUSP PO (13:39)
[2023-03-21 13:52] LABS: Adenovirus F 40/41 Not Detected (Not Detect.); Astrovirus Not Detected (Not Detect.); Campylobacter Not Detected (Not Detect.); Cryptosporidium Not Detected (Not Detect.); Cyclospora cayetanensis Not Detected (Not Detect.); E. coli EAEC Not Detected (Not Detect.); E. coli EPEC Not Detected (Not Detect.); E. coli ETEC Not Detected (Not Detect.); E. coli STEC Not Detected (Not Detect.); Entamoeba histolytica Not Detected (Not Detect.); Giardia lamblia Not Detected (Not Detect.); Norovirus GI/GII Not Detected (Not Detect.); Plesiomonas shigelloides Not Detected (Not Detect.); Rotavirus A Not Detected (Not Detect.); Salmonella Not Detected (Not Detect.); Sapovirus Not Detected (Not Detect.); Shigella sp./EIEC Not Detected (Not Detect.); Vibrio Not Detected (Not Detect.); Vibrio Cholerae Not Detected (Not Detect.); Yersinia enterocolitica Not Detected (Not Detect.)
[2023-03-21 13:57] LABS: IDNOW Serial# BCCEAD1C
[2023-03-21 13:58] LABS: COVID-19 Test Negative (Negative); IDNOW Serial# 08D9AD1C; Influenza A Negative (Negative); Influenza B2 Negative (Negative)
== END 2023-03-21 14:28 | disposition home or self-care (01) ==
PROVIDERS: Physician Assistant; Emergency Provider Student in an Organized Health Care Education/Training Program; PCP Internal Medicine
DX: K52.9 Noninfective gastroenteritis and colitis, unspecified (principal); Z20.822 Contact with and (suspected) exposure to COVID-19; Z20.828 Contact with and (suspected) exposure to other viral communicable diseases; Z79.899 Other long term (current) drug therapy
CPT/HCPCS: 36415; 80048; 80076; 81003; 83690; 85025; 87493; 87502; 87507; 87635; 99283; 99284

== ENCOUNTER 2023-03-30 10:22 | Outpatient (REF) | payer MEDICAID, SELFPAY | END 2023-03-30 10:23 | disposition home or self-care (01) | LOC: HO.MAMMO 10:22 | PROVIDERS: PCP Internal Medicine; Visit Provider Internal Medicine | DX: Z12.31 Encounter for screening mammogram for malignant neoplasm of breast (principal) | CPT/HCPCS: 77063; 77067 ==

== ENCOUNTER → 2023-03-30 11:30 | Outpatient (BNV) | payer MEDICAID, SELFPAY | PROVIDERS: PCP Internal Medicine; Visit Provider Radiology Diagnostic Radiology | DX: Z12.31 Encounter for screening mammogram for malignant neoplasm of breast (principal) | CPT/HCPCS: 77063; 77067 ==

== ENCOUNTER 2023-05-15 17:49 | Outpatient (REF) | payer MEDICAID, SELFPAY ==
[2023-05-15 18:52] LABS: Influenza A PCR NEGATIVE (Negative); Influenza B PCR NEGATIVE (Negative); Resp Syncy Virus RNA Qual PCR NEGATIVE (Negative); SARS COV2 PCR INHOUSE NEGATIVE (Negative)
== END 2023-05-15 17:50 | disposition home or self-care (01) ==
LOC: HO.HHCLNP 17:49
PROVIDERS: Visit Provider Nurse Practitioner Primary Care
DX: R05.1 Acute cough (principal); Z11.52 Encounter for screening for COVID-19
CPT/HCPCS: 0241U; 87070

== ENCOUNTER → 2023-07-11 12:39 | Outpatient (BNVA) | payer MEDICAID, SELFPAY | PROVIDERS: PCP Internal Medicine; Visit Provider Obstetrics & Gynecology ==

== ENCOUNTER 2023-08-09 11:09 | Outpatient (REF) | payer MEDICAID, SELFPAY ==
[2023-08-09 14:23] LABS: Alanine Aminotransferase 19 U/L (0-31); Albumin Level 4.4 g/dL (3.5-5.0); Alkaline Phosphatase 78 U/L (39-117); Anion Gap 14 (12-20); Aspartate Amino Transferase 21 U/L (5-31); Bilirubin Total 0.7 mg/dL (0.0-1.0); Blood Urea Nitrogen 14 mg/dL (9-16); Calcium 10.1 mg/dL (8.4-10.2); Carbon Dioxide 27 mmol/L (22-29); Chloride 103 mmol/L (96-108); Estimated Glomerular Filt Rate > 60; Glucose Random 98 mg/dL (60-115); Potassium 3.3 mmol/L (3.3-5.1); Sodium 141 mmol/L (135-145); Total Protein 8.2 g/dL (6.5-8.0); Vitamin D 25-OH Total 29.7 ng/mL (>30)
== END 2023-08-09 11:10 | disposition home or self-care (01) ==
LOC: HO.HHCL 11:09
PROVIDERS: Visit Provider Internal Medicine
DX: I10 Essential (primary) hypertension (principal); R73.01 Impaired fasting glucose; E55.9 Vitamin D deficiency, unspecified
CPT/HCPCS: 36415; 80053; 82306

== ENCOUNTER 2023-10-04 10:29 | Outpatient (REF) | payer MEDICAID, SELFPAY ==
--- NOTE | ~2023-10-04 | MM_ITS ---
EXAMINATION: BONE DENSITOMETRY CLINICAL INDICATION: Postmenopausal. High risk of fracture. COMPARISON: This is the patient's baseline examination. TECHNIQUE: Using a [employer] DXA System (software version: 13.1) manufactured by [employer], dual-energy x-ray absorptiometry was performed of the lumbar spine and left hip. The images are of good technical quality. Summary results are attached. FINDINGS: LEFT FEMUR, NECK: BMD 0.843 g/cm2, Z-score -0.5, T-score -1.4, osteopenia. LEFT FEMUR, TOTAL: BMD 0.909 g/cm2, Z-score -0.2, T-score -0.8, normal. AP SPINE L1-L4: BMD 1.145 g/cm2, Z-score 0.5, T-score -0.3, normal. IDENTIFIED RISK FACTORS: Menopause. HISTORY OF FRACTURE: None listed. MEDICATIONS: Vitamin D. MM/XR DEXA axial skeleton IMPRESSION: 1. DIAGNOSIS: Osteopenia based on the lowest T-score value of -1.4 in the femoral neck applying World Health Organization criteria. 2. 10-YEAR FRACTURE RISK PREDICTION, FRAX: Major osteoporotic fracture (clinical spine, forearm, hip or shoulder) 4.3%. Hip fracture 0.3%. 3. Treatment Recommendations: NOF guidelines recommend consideration for treatment in postmenopausal women and men age 50 and older presenting with the following: -A hip or vertebral (clinical or morphometric) fracture. -T-score less than or equal to -2.5 at the femoral neck or spine after appropriate evaluation to exclude secondary causes. -Low bone mass at the hip or spine and a 10-year fracture probability by FRAX of greater than or equal to 3% for hip fracture or greater than or equal to 20% for major osteoporotic fracture based on the [place] adapted WHO algorithm. 4. Other Recommendations: All treatment decisions require clinical judgment and consideration of individual patient factors, including patient preferences, comorbidities, previous drug use, risk factors not captured in the FRAX model (e.g. frailty, falls, vitamin D deficiency, increased bone turnover, interval significant decline in bone density) and possible under or overestimation of fracture risk by FRAX. Additional medical evaluation for secondary cause of low bone mineral density may be appropriate. FUTURE SCAN RECOMMENDATION: People with diagnosed cases of osteoporosis or at high risk for fracture should have regular bone mineral density tests. For patients eligible for Medicare, routine testing is allowed once every 2 years. The testing frequency can be increased to one year for patients who have rapidly progressing disease, those who are receiving or discontinuing medical therapy to restore bone mass, or have additional risk factors.
== END 2023-10-04 10:30 | disposition home or self-care (01) ==
LOC: HO.MAMMO 10:29
PROVIDERS: PCP Internal Medicine; Visit Provider Internal Medicine
DX: Z13.820 Encounter for screening for osteoporosis (principal); Z91.89 Other specified personal risk factors, not elsewhere classified; Z78.0 Asymptomatic menopausal state
CPT/HCPCS: 77080

== ENCOUNTER 2023-12-06 14:11 | Outpatient (AMB) | payer MEDICAID, SELFPAY ==
--- NOTE | 2023-12-06 14:13 | A.OFFVIS_ITS ---
Vital Signs 12/06/23 14:15 Height 5 ft 2 in Weight 183 lb 6.793 oz BMI 33.5 BP 97/67 Blood Pressure Location Rt brachial Position Sitting Pulse 82 Intake Visit Reasons: Colonoscopy Screening Intake Note: Holly presents in office today for colonoscopy screening. CC: Patient c/o constipation, nausea, vomiting sometimes, and heartburn. Print Line Tailer Required: Yes Print Line Tailer Name: [id number] Efraín Accompanied by: Self / Same As Patient Allergies No Known Allergies Allergy (Verified 12/06/23 14:16) HPI HPI Colonoscopy Screening: Details: 63-year-old female here for preprocedural meeting to discuss a screening colonoscopy. She is referred by A [facility]. PMX Asthma Obesity-BMI of 33 Hypertension High cholesterol Impaired fasting glucose Headache syndrome Chronic right heel pain Constipation Hemorrhoids Eczema GERD Lichenoid keratosis * SURGICAL HISTORY Tubal ligation * ALLERGIES: NKDA * [employer] LABS: Laboratory Tests 08/09/23 11:10 Estimated GFR > 60 Total Bilirubin 0.7 AST 21 ALT 19 Alkaline Phosphatase 78 TODAY'S VISIT [facility] #[id number] Slim This is her first colonoscopy. She suffers CIC with pain and cramping that is not successfully treated with senna, colace, fiber, bisacodyl, miralax. I will progress her to Linzess 145mcg and titrate. She will have worsening nausea and GERD when she has not moved her bowels. There are no prior problems with anesthesia or sedation. Her asthma is well controlled and she denies cardiac problems. No ID problems. She had a maternal aunt who later in life from CRC no other known hx of CRC or polyps. Return office visit in 5 weeks to titrate her Linzess. [facility] Medical History History of depression Asthma HTN (hypertension) Surgical History History of hysteroscopy History of tubal ligation Family History Maternal Aunt Colon cancer Social History Are you a primary acute care nursing assistant to a significant other at home: No Do you presently have visiting nurse or other home services: No Alcohol intake: never Patient Tobacco Use Status: Never used Tobacco Female Reproductive History Menstrual Age of Menarche: 12 Review of Systems Const Denies fatigue, Denies fever(s), Denies night sweats, Denies poor appetite and Denies weight loss Eyes Details: glasses ENT Reports Normal hearing present, Denies dental pain, Denies dysphagia, Denies hearing loss, Denies mouth pain, Denies odynophagia, Denies throat swelling, Denies tongue swelling and Reports other (Dentition adequate) Card Reports no additional complaints Resp Reports no additional complaints GI Details: Denies abdominal pain, Denies melena, Reports bloating, Denies hematochezia, Reports constipation, Denies GI cramping, Denies dysphagia, Denies excessive flatus, Denies early satiety, Reports heartburn, Denies diarrhea, Denies nausea, Denies odynophagia, Denies vomiting and Denies hematemesis Skin/Breast Denies pruritus, Denies lesions, Denies rash and Denies jaundice Neuro Reports Normal hearing present and Denies Abnormal speech present Endo Denies fatigue Aller/Immun Denies throat swelling and Denies tongue swelling Physical Exam Vital Signs: Last Vital Signs Pulse 82 12/06/23 14:15 BP 97/67 12/06/23 14:15 BMI result Body Mass Index 33.5 Const General: cooperative, no acute distress, well developed and well groomed Nutritional Appearance: well nourished and obese Orientation/consciousness: oriented to person, oriented to place and oriented to time Limitations: language barrier HEENT Head: Yes normocephalic and Yes atraumatic Eyes General: appearance normal, both eyes and all related structures Pupils: Equal, round and reactive pupils present Neck Neck: Yes normal visual inspection and Yes no lymphadenopathy Thyroid: Thyroid normal Resp Effort & Inspection: normal respiratory effort and able to speak in complete sentences Auscultation: clear to auscultation bilaterally Cardio Rate: regular rate Rhythm: regular rhythm Heart sounds: Normal, physiologic split S2 sound present Peripheral pulses: radial pulses present and posterior tibial pulses present GI Inspection: No distended, No Abdominal panniculus present and Yes obesity Palpation (GI): Soft to palpation, nontender, no guarding, not rigid and No hepatosplenomegaly present Percussion: Yes normal to percussion Auscultation: normal bowel sounds Rectal Exam - Female: deferred Skin General skin exam: no rashes or lesions noted, turgor normal, skin not dry, no jaundice, No spider nevi and no striae Rashes: no rashes Nails: normal Neuro General: oriented to person, oriented to place and oriented to time Cranial nerves: Yes Equal, round and reactive pupils present and Yes Normal hearing present Speech: No Abnormal speech present Extrem General: Yes normal to inspection, No clubbing, No cyanosis and No edema Psych Appearance: grossly normal and well kempt Mental Status: mental status grossly normal Speech and movement: Normal speech and movement present Affect: normal affect Attitude: cooperative Thought process: Normal thought process present and not confabulating Thought content: Normal thought content present Insight: Limited insight present (Psych) Judgement: Limited judgement present (Psych) Assessment & Plan Assessment & Plan (1) GERD (gastroesophageal reflux disease): Code(s): K21.9 - Gastro-esophageal reflux disease without esophagitis Category: Medical (2) Constipation: Code(s): K59.00 - Constipation, unspecified Category: Medical Plan [facility] #[id number] Slim This is her first colonoscopy. She suffers CIC with pain and cramping that is not successfully treated with senna, colace, fiber, bisacodyl, miralax. I will progress her to Linzess 145mcg and titrate. She will have worsening nausea and GERD when she has not moved her bowels. There are no prior problems with anesthesia or sedation. Her asthma is well controlled and she denies cardiac problems. No ID problems. She had a maternal aunt who later in life from CRC no other known hx of CRC or polyps. Return office visit in 5 weeks to titrate her Linzess. Medications: New peg 3350-electrolytes 236-22.74-6.74 -5.86 gram (Golytely) until fecal effluent is clear; do not exceed a total volume of 2,000 mL 240 mL PO Q10M 4,000 mL 0RF 1 day Z12.11 - Encounter for screening for malignant neoplasm of colon bisacodyl (Dulcolax (bisacodyl)) 10 mg (2 x 5 mg) PO BEDTIME 4 tabs 0RF 2 days linaclotide (Linzess) Take first thing in the morning with a full glass of water. 145 mcg PO QAM 30 caps 3RF K58.1 - Irritable bowel syndrome with constipation Coding Level of Care Code New Pt Level 3 (28933) Diagnoses GERD (gastroesophageal reflux disease) K21.9 Constipation K59.00
[2023-12-06 14:15] VITALS: BP 97/67; PULSE 82; BMI 33.5
== END 2023-12-06 14:49 | disposition home or self-care (01) ==
PROVIDERS: PCP Internal Medicine; Visit Provider Nurse Practitioner
DX: K21.9 Gastro-esophageal reflux disease without esophagitis (principal); K59.00 Constipation, unspecified
CPT/HCPCS: 99203

== ENCOUNTER → 2023-12-06 14:11 | Outpatient (BNVA) | payer MEDICAID, SELFPAY | PROVIDERS: PCP Internal Medicine; Visit Provider Nurse Practitioner | DX: K21.9 Gastro-esophageal reflux disease without esophagitis (principal); K59.00 Constipation, unspecified | CPT/HCPCS: 99212 ==

== ENCOUNTER 2024-04-04 10:30 | Outpatient (REF) | payer MEDICAID, SELFPAY ==
--- NOTE | ~2024-04-04 | MM_ITS ---
EXAMINATION: MM SCREENING DIGITAL BREAST TOMOSYNTHESIS, BILATERAL CLINICAL INFORMATION: Screening. Asymptomatic. COMPARISON: Mammography: Comparison is made with available priors TECHNIQUE: Digital breast mammography with tomosynthesis is performed in both the craniocaudal and mediolateral oblique views along with computer-aided detection (CAD). FINDINGS: There are scattered areas of fibroglandular density (ACR BI-RADS breast composition Category b). There are no significant masses, abnormal calcifications, or other abnormalities. MM/MM tomosynthesis screening BI IMPRESSION: No mammographic evidence of malignancy. ASSESSMENT: BI-RADS BI-RADS 1 - Negative RECOMMENDATION: Routine annual mammography screening. 1 year F/U This examination should not preclude the clinical evaluation of a suspicious palpable abnormality. This patient's information was entered into a reminder system with a target due date for their next mammogram. Electronically signed by: Kirti Mancera DO 04/17/2024 07:47 PM EDT
== END 2024-04-04 10:31 | disposition home or self-care (01) ==
LOC: HO.MAMMO 10:30
PROVIDERS: PCP Internal Medicine; Visit Provider Internal Medicine
DX: Z12.31 Encounter for screening mammogram for malignant neoplasm of breast (principal)
CPT/HCPCS: 77063; 77067

== ENCOUNTER → 2024-04-04 10:45 | Outpatient (BNV) | payer MEDICAID, SELFPAY | PROVIDERS: PCP Internal Medicine; Visit Provider Internal Medicine | DX: Z12.31 Encounter for screening mammogram for malignant neoplasm of breast (principal) | CPT/HCPCS: 77063; 77067 ==

== ENCOUNTER 2024-07-30 08:11 | Outpatient (REF) | payer MEDICAID, SELFPAY ==
[2024-07-30 12:33] LABS: Vitamin D 25-OH Total 25.5 ng/mL (>30)
[2024-07-30 12:37] LABS: Anion Gap 14 (12-20); Blood Urea Nitrogen 15 mg/dL (9-16); Calcium 9.9 mg/dL (8.4-10.2); Carbon Dioxide 29 mmol/L (22-29); Chloride 102 mmol/L (96-108); Cholesterol 300 mg/dL (<200); Estimated Glomerular Filt Rate > 60; Glucose Random 106 mg/dL (60-115); HDL Cholesterol 45 mg/dL (>40); LDL Cholesterol Calculated 213 mg/dL (<100); Potassium 2.9 mmol/L (3.3-5.1); Sodium 142 mmol/L (135-145); Triglycerides 212 mg/dL (<150)
[2024-07-30 13:12] LABS: Reflex LDLD? No
== END 2024-07-30 08:12 | disposition home or self-care (01) ==
LOC: HO.HHCL 08:11
PROVIDERS: Visit Provider Internal Medicine
DX: I10 Essential (primary) hypertension (principal); L20.84 Intrinsic (allergic) eczema
CPT/HCPCS: 36415; 80048; 80061; 82306

== ENCOUNTER 2024-08-05 07:54 | Outpatient (REF) | payer MEDICAID, SELFPAY ==
[2024-08-05 12:13] LABS: Magnesium 1.8 mg/dL (1.6-2.6); Potassium 3.3 mmol/L (3.3-5.1)
== END 2024-08-05 07:55 | disposition home or self-care (01) ==
LOC: HO.HHCL 07:54
PROVIDERS: Visit Provider Internal Medicine
DX: E87.6 Hypokalemia (principal)
CPT/HCPCS: 36415; 83735; 84132

== ENCOUNTER 2024-09-03 09:24 | Day surgery (SDC) | payer MEDICAID, SELFPAY ==
[2024-05-03 06:51] VITALS: BMI 33.5
--- NOTE | 2024-05-03 10:21 | HO.ANESPROP2 ---
HPI - Anesthesia Eval Consult details Narrative: 63yo F for Colonoscopy PMF Active Problems Active Problems: All Active Problems Lichenoid keratosis (Acute) Vasomotor rhinitis (Acute) Headache syndrome (Acute) Obesity (BMI 30.0-34.9) (Acute) Internal hemorrhoids (Acute) Eczema (Acute) GERD (gastroesophageal reflux disease) (Acute) Constipation (Acute) Impaired fasting glucose (Acute) High cholesterol (Acute) Asthma (Acute) Myoma (Acute) Postmenopausal bleeding (Acute) De Quervain's tenosynovitis, left (Acute) Past Medical History Medical History History of depression Asthma HTN (hypertension) Family History Family History Maternal Aunt Colon cancer Family history of problems with anesthesia: No Surgical History Surgical History History of hysteroscopy History of tubal ligation History of Problems with Anesthesia: No Social History Social History Are you a primary day care director to a significant other at home: No Do you presently have visiting nurse or other home services: No Alcohol intake: never Patient Tobacco Use Status: Never used Tobacco Meds Allergies Allergy/AdvReac Type Severity Reaction Status Date / Time No Known Allergies Allergy Verified 12/06/23 14:16 Home Medications ?Medication ?Instructions ?Recorded ?Confirmed ?Last Taken ?Type albuterol sulfate 90 mcg/actuation 2 puff inhalation Q4-6H PRN 07/08/20 08/31/20 Unknown History aerosol inhaler Wheezing amlodipine 10 mg tablet 10 mg PO DAILY 07/08/20 08/31/20 01/14/22 History cholecalciferol (vitamin D3) 50 50 mcg PO DAILY 07/08/20 08/31/20 Unknown History mcg (2,000 unit) capsule (Vitamin D3) chlorthalidone 25 mg tablet 25 mg PO [facility] 12/06/23 Unknown History fluticasone propionate 110 1 puff inhalation 12/06/23 Unknown History mcg/actuation HFA aerosol inhaler loratadine 10 mg tablet 10 mg PO QA 12/06/23 Unknown History prazosin 2 mg capsule 2 mg PO BEDTIME nightmares 12/06/23 Unknown History quetiapine 100 mg tablet 150 mg PO BEDTIME depressive 12/06/23 Unknown History disorder sennosides 8.6 mg-docusate sodium 1 tab PO QAM 12/06/23 Unknown History 50 mg tablet (Stimulant Laxative Plus) sertraline 100 mg tablet 150 mg PO QAM 12/06/23 Unknown History Exam Height,Weight and Vital Signs: Height 5 ft 2 in Weight 83.007 kg Assessment and Plan Assessment Anesthesia Assessment: Chart Reviewed Final Anesthetic Review Family History of Problems with Anesthesia: No History of Problems with Anesthesia: No
--- NOTE | 2024-09-02 09:53 | P.CONAN_ITS ---
Documented by User: Katie Fagna NP 09/02/24 09:53 HPI - Anesthesia Eval Consult details Narrative: 63yo F for Colonoscopy PMFSH Active Problems Active Problems: All Active Problems Lichenoid keratosis (Acute) Vasomotor rhinitis (Acute) Headache syndrome (Acute) Obesity (BMI 30.0-34.9) (Acute) Internal hemorrhoids (Acute) Eczema (Acute) GERD (gastroesophageal reflux disease) (Acute) Constipation (Acute) Impaired fasting glucose (Acute) High cholesterol (Acute) Asthma (Acute) Myoma (Acute) Postmenopausal bleeding (Acute) De Quervain's tenosynovitis, left (Acute) Past Medical History Medical History History of depression Asthma HTN (hypertension) Family History Family History Maternal Aunt Colon cancer Family history of problems with anesthesia: No Surgical History Surgical History History of hysteroscopy History of tubal ligation History of Problems with Anesthesia: No Social History Social History Are you a primary direct care staffer to a significant other at home: No Do you presently have visiting nurse or other home services: No Alcohol intake: never Patient Tobacco Use Status: Never used Tobacco Have you been hit, kicked, punched, or otherwise hurt by someone within the past year? If so, by whom?: No Are you DNR?: No Advance Directives: No Advance Directives Information Provided: Yes Recently lost weight without trying: No Nutrition Risks: No Nutritional Risk Meds Allergies Allergy/AdvReac Type Severity Reaction Status Date / Time No Known Allergies Allergy Verified 09/03/24 10:50 Home Medications ?Medication ?Instructions ?Recorded ?Confirmed ?Last Taken ?Type albuterol sulfate 90 mcg/actuation 2 puff inhalation Q4-6H PRN 07/08/20 09/03/24 Unknown History aerosol inhaler Wheezing amlodipine 10 mg tablet 10 mg PO DAILY 07/08/20 09/03/24 01/14/22 History cholecalciferol (vitamin D3) 50 50 mcg PO DAILY 07/08/20 09/03/24 Unknown History mcg (2,000 unit) capsule (Vitamin D3) chlorthalidone 25 mg tablet 25 mg PO QAM 12/06/23 09/03/24 Unknown History fluticasone propionate 110 1 puff inhalation 12/06/23 Unknown History mcg/actuation HFA aerosol inhaler loratadine 10 mg tablet 10 mg PO QAM 12/06/23 09/03/24 Unknown History prazosin 2 mg capsule 2 mg PO BEDTIME nightmares 12/06/23 09/03/24 Unknown History quetiapine 100 mg tablet 150 mg PO BEDTIME depressive 12/06/23 09/03/24 Unknown History disorder sennosides 8.6 mg-docusate sodium 1 tab PO QAM 12/06/23 09/03/24 Unknown History 50 mg tablet (Stimulant Laxative Plus) sertraline 100 mg tablet 150 mg PO QAM 12/06/23 09/03/24 Unknown History Exam Height,Weight and Vital Signs: Height 5 ft 2 in Weight 83.007 kg Assessment and Plan Assessment Anesthesia Assessment: Chart Reviewed Final Anesthetic Review Family History of Problems with Anesthesia: No History of Problems with Anesthesia: No Documented by User: Aide Guevara MD 09/03/24 13:01 [facility] Past Medical History Medical History History of depression Asthma HTN (hypertension) Family History Family History Maternal Aunt Colon cancer Surgical History Surgical History History of hysteroscopy History of tubal ligation Social History Social History Are you a primary direct care staffer to a significant other at home: No Do you presently have visiting nurse or other home services: No Alcohol intake: never Patient Tobacco Use Status: Never used Tobacco Have you been hit, kicked, punched, or otherwise hurt by someone within the past year? If so, by whom?: No Are you DNR?: No Advance Directives: No Advance Directives Information Provided: Yes Recently lost weight without trying: No Nutrition Risks: No Nutritional Risk Meds Allergies Allergy/AdvReac Type Severity Reaction Status Date / Time No Known Allergies Allergy Verified 09/03/24 10:50 Home Medications ?Medication ?Instructions ?Recorded ?Confirmed ?Last Taken ?Type albuterol sulfate 90 mcg/actuation 2 puff inhalation Q4-6H PRN 07/08/20 09/03/24 Unknown History aerosol inhaler Wheezing amlodipine 10 mg tablet 10 mg PO DAILY 07/08/20 09/03/24 01/14/22 History cholecalciferol (vitamin D3) 50 50 mcg PO DAILY 07/08/20 09/03/24 Unknown History mcg (2,000 unit) capsule (Vitamin D3) chlorthalidone 25 mg tablet 25 mg PO QAM 12/06/23 09/03/24 Unknown History fluticasone propionate 110 1 puff inhalation 12/06/23 Unknown History mcg/actuation HFA aerosol inhaler loratadine 10 mg tablet 10 mg PO QAM 12/06/23 09/03/24 Unknown History prazosin 2 mg capsule 2 mg PO BEDTIME nightmares 12/06/23 09/03/24 Unknown History quetiapine 100 mg tablet 150 mg PO BEDTIME depressive 12/06/23 09/03/24 Unknown History disorder sennosides 8.6 mg-docusate sodium 1 tab PO QAM 12/06/23 09/03/24 Unknown History 50 mg tablet (Stimulant Laxative Plus) sertraline 100 mg tablet 150 mg PO QAM 12/06/23 09/03/24 Unknown History Exam Airway Mallampati Class: II TM Dist: >3cm Neck ROM: Full Denture: Upper Loose/Missing/Broken Teeth: Yes and Upper Heart: RRR Lungs: CTA Assessment and Plan Assessment Anesthesia Assessment: Anesthesia Plan Discussed Final Anesthetic Review NPO: Yes ASA Class: II Final Preanesthetic Review: Meds/Allgs Chart Reviewed, Consent Obtained/Reviewed and Anes Risks/Benef Reviewed Patient Risk: Low Procedure Risk: Low Anesthetic Plan Anesthetic Plan: MAC: Disposition: Standard PACU
--- OUTSIDE RECORDS SUMMARY | 2024-09-03 10:28 | XMS_ITS | Encounter Summary ---
Author Organization [facility] [facility] Address [address] [facility] 7[address] [place] [address] Care Team Providers Care Contract Officer Name Role Phone Keely Townsend MD Primary Care Provider + Encounter Details Date Type Department Care Team (Latest Contact Info) Description 08/16/2022 Orders Only [facility] [address] [place] [address] [phone] Keely Townsend MD [address] [place] [address] [phone] Hypercholesterolemia (Primary Dx); Vitamin D deficiency Social History Tobacco Use Types Packs/Day Years Used Date Smoking Tobacco: Never Smokeless Tobacco: Never Alcohol Use Standard Drinks/Week Comments Never 0 (1 standard drink = 0.6 oz pur e alcohol) Depression Answer Date Recorded Patient Health Questionnaire-2 Score 2 08/04/2022 Comments Unknown Sex and Gender Information Value Date Recorded Sex Assigned at Female 05/23/2022 10:33 AM EDT Legal Sex Female 10:33 AM EDT Gender Identity Female 05/23/2022 10:33 AM EDT Sexual Orientation Straight 05/23/2022 10 :33 AM EDT COVID-19 Exposure Response Date Recorded In the last 10 days, have yo u been in contact with someone who was confirmed or suspected to have Coronavirus/COVID-19? No / Unsure 08/04/2022 8:31 AM EST documented as of this encounter Plan of Treatment Upcoming Encounters Date Type Department Care Team (Late st Contact Info) Description 11/07/2024 11:30 AM EDT Office Visit [facility] [address] [place] [address] [phone] Keely Townsend MD [address] [place] [phone] documented as of this encounter Procedures Procedure Name Priority Date/Time Associated Diagnosis Comments INFLUENZA A B2 ID NOW (CHERRY) Routine 03/21/2023 1:30 PM EDT Hypercholesterolem ia COVID-19 ID NOW (CHERRY) Routine 023 1:30 PM EDT Hypercholesterolem ia CDIFF GENE PCR Routine 03/21/2023 11:48 AM EDT Hypercholesterolem ia GASTROINTESTINAL PANEL Routine 11:48 AM EDT Hypercholesterolem ia URINALYSIS WITH REFLEX MICROSCOPIC Routine 03/21/2023 11:48 AM EDT Hypercholesterolem ia CBC WITH AUTO DIFFERENTIAL Routine 03/21/2023 11:02 AM EDT Hypercholesterolem ia LIPASE Routine 03/21/2023 11:02 AM EDT Hypercholesterolem ia HEPATIC FUNCTION PANEL Routine 11:02 AM EDT Hypercholesterolem ia BASIC METABOLIC PANEL Routine 03/21/2023 11:02 AM EDT Hypercholesterolem ia LIPID PANEL, STANDARD Routine 02/28/2023 8:17 AM EDT Hypercholesterolem ia HEMATOXYLIN AND EOSIN STAIN Routine 11/09/2022 11:12 AM EDT Hypercholesterolem ia documented in this encounter Results * COVID-19 ID NOW (CHERRY) (03/21/2023 1:30 PM EDT) IDNOW SERIAL# [id number] [facility] COVID-19 TEST Negative Negative [facility] COVID-19 NOTE See Note [facility] Comment: Results are for the identification of SARS-CoV2 RNA. TheSARS-CoV2 RNA is generally detectable in respiratory samplesduring the acute phase of infection. Positive results areindicative of the presence of SARS-CoV-2 RNA; clinicalcorrelation with patient history and other diagnosticinformation is necessary to determine patient infectionstatus. Positive results do not rule out bacterial infectionor co- infection with other viruses.Testing facilities within the [place] and [facility] are required to report all positive results tothe appropriate public health authorities.Negative results should be treated as presumptive and, ifinconsistent with clinical signs and symptoms or necessaryfor patient management, should be tested with differentauthorized or cleared molecular tests. Negative results donot preclude SARS-CoV2 RNA infection and should not be usedas the sole basis for patient management decisions. Negativeresults should be considered in the context of a patient'srecent exposures, history and the presence of clinical signsand symptoms consistent with COVID-19.This test has been authorized by the FDA under an EmergencyUse Authorization (EUA) for use by authorized laboratories.Testing performed on the [employer] ID NOW utilizing NAAT. 03/21/2023 1:30 PM EDT 03/21/2023 1:31 PM EDT [facility] Exter nal Provider LAB MOLECULAR DIAGNOSTICS ORDERABLES Final Result [facility] [address] [place] [phone] * Influenza A B2 ID NOW ([employer]) (03/21/2023 1:30 PM EDT) IDNOW SERIAL# [id number] [facility] Influenza A Negative Negative [facility] Influenza B2 Negative Negative [facility] Influenza A B2 Note See Note [facility] Comment:The Cherry ID NOW In fluenza A B2 test is used for thequalitative detection of influenza A and B from patientswith signs and symptoms of respiratory infection.Negative results do not preclude influenza virus infectionand should not be used as the sole basis for diagnosis,treatment or other patient management decisions.There is a risk of false negative results due to thepresence of variants in the viral targets of the assay, lowlevels of virus in the specimen and co- infection withRespiratory Syncytial Virus. 03/21/2023 1:30 PM EDT 03/21/2023 1:31 PM EDT [facility] Exter nal Provider LAB MICROBIOLOGY - GENERAL ORDERABLES Final Result [facility] [address] [place] [phone] * Gastrointestinal panel (03/21/2023 11:48 AM EDT) Campylobacter Not Detected Not Detect. [facility] Plesiomonas shigelloides Not Detected Not Detect. [facility] Salmonella Not Detected Not Detect. [facility] Vibrio Not Detected Not Detect. [facility] Vibrio cholerae Not Detected Not Detect. [facility] YERSINIA ENTEROCOLITICA Not Detected Not Detect. [facility] Enteroaggregative E. coli (EAEC) Not Detected Not Detect. [facility] Enteropathogenic E. coli (EPEC) Not Detected Not Detect. [facility] Enterotoxigenic E. coli (ETEC) lt/st Not Detected Not Detect. [facility] Shiga-like toxin-producing E. coli (STEC) stx1/stx2 Not Detected Not Detect. [facility] E coli O157 Not applicable Not Detect. [facility] Comment:E. coli containing t he O157 antigen are a subset ofShiga-like toxin- producing E. coli (STEC). Shigella/Enteroinvasive E. coli (EIEC) Not Detected Not Detect. [facility] Cryptosporidium Not Detected Not Detect. [facility] Cyclospora cayetanensis Not Detected Not Detect. [facility] Entamoeba histolytica Not Detected Not Detect. [facility] Giardia lamblia Not Detected Not Detect. [facility] Adenovirus F 40/41 Not Detected Not Detect. [facility] Astrovirus Not Detected Not Detect. [facility] Norovirus GI/GII Not Detected Not Detect. [facility] Rotavirus A Not Detected Not Detect. [facility] Sapovirus Not Detected Not Detect. [facility] Comment: All results must be correlated with clinical findings.Negative results do not exclude the possibility ofgastrointestinal infection and should not be used as thesole basis for diagnosis, treatment, or other managementdecisions. Virus, bacteria, and parasite nucleic acid maypersist in vivo independently of organism viability.Additionally, some organisms may be carried symptomatically.Detection of organism targets does not imply that thecorresponding organisms are infectious or are the causativeagents for clinical symptoms. There is a risk of falsenegative values due to the presence of sequence variants inthe gene targets of the assay, amplification inhibitors inspecimens, or inadequate numbers of organisms foramplification.The identification of several diarrheagenic E. colipathotypes has historically relied upon phenotypiccharacteristics. This panel targets genetic determinantscharacteristic of most pathogenic strains, but may notdetect all strains having phenotypic characteristics of apathotype.The performance of this test has not been established formonitoring treatment of infection with any of the panelorganisms.This assay is performed by Multiplexed PCR, utilizing [employer]. 03/21/2023 11:4 8 AM EDT 03/21/2023 12:13 PM EDT [facility] Exter nal Provider LAB MICROBIOLOGY - GENERAL ORDERABLES Final Result [facility] [address] [place] [phone] * CDiff Gene PCR (03/21/2023 11:48 AM EDT) CDiff Gene PCR NEGATIVE Negative [facility] Comment:If C. difficile stro ngly suspected despite one negativetest, a second test may be sent vs. empiric treatment forC. difficile infection. 03/21/2023 11:4 8 AM EDT 03/21/2023 12:13 PM EDT [facility] Exter nal Provider LAB BODY FLUIDS AND STOOLS ORDERABLES Final Result Performing Organization Address [facility] Co de Phone Number [facility] [address] [place] [phone] * Urinalysis w/reflex microscopic (03/21/2023 11:48 AM EDT) Color Urine Yellow [facility] Appearance Urine Cloudy [facility] PH 5.5 5.0 - 9.0 [facility] Glucose Urine UA Negative Negative mg/dL [facility] Urine Blood Negative Negative [facility] Specific Mcfaddin - Urine 1.025 1.005 - 1.025 [facility] Urine Protein Trace Neg-Trace mg/dL [facility] Urine Ketones Negative Negative mg/dL [facility] Nitrite Urine Negative Negative [facility] Leukocyte Esterase Urine Negative Negative [facility] 03/21/2023 11:4 8 AM EDT 03/21/2023 12:13 PM EDT Narrative [facility] - 03/21/2023 12:19 PM EDT Urine, Clean Catch [facility] External Provider LAB URI NE ORDERABLES Final Result Performing Organization Address [facility] Co de Phone Number [facility] [address] [place] [phone] * Lipase (03/21/2023 11:02 AM EDT) Lipase 29 8 - 78 U/L [facility] 03/21/2023 11:0 2 AM EDT 03/21/2023 11:10 AM EDT Generic External Data Provider LAB BLOOD ORDERAB LES Final Result Performing Organization Address [facility] Co de Phone Number [facility] [address] [place] [phone] * Basic Metabolic Panel (03/21/2023 11:02 AM EDT) Sodium 142 135 - 145 mmol/L [facility] Potassium 3.5 3.3 - 5.1 mmol/L [facility] Chloride 108 96 - 108 mmol/L [facility] Carbon Dioxide 22 22 - 29 mmol/L [facility] Anion Gap 16 12 - 20 [facility] Urea Nitrogen (BUN) 11 9 - 16 mg/dL [facility] Creatinine, Serum 0.78 0.5 - 1.4 mg/dL [facility] Creatinine Clr Calc Pharmacy 75.6 [facility] Comment:Provided height and weight: 157.48 cm,83.007 kg.eGFR (calculated from the MDRD study equation) and eCrCl(calculated from the Cockcroft-Gault equation) are based ondifferent parameters and may not yield comparable results.If eCrCl result is absurd, please check patient'sheight/weight. Estimated Glomerular Filt Rate >60 [facility] Comment:NOTE: For -Am erican individuals, multiply the result by 1.210.Chronic Kidney Disease: Estimated GFR < 60 mL/min/1.52y4Riqpol Kidney Disease: Estimated GFR < 15 mL/min/1.73m2 Glucose 109 60 - 115 mg/dL [facility] Calcium 10.0 8.4 - 10.2 mg/dL [facility] 03/21/2023 11:0 2 AM EDT 03/21/2023 11:10 AM EDT us Generic External Data Provider LAB BLOOD ORDERAB LES Final Result [facility] [address] [place] [phone] * (ABNORMAL) Hepatic Function Panel (03/21/2023 11:02 AM EDT) Bilirubin, Total 0.8 0.0 - 1.0 mg/dL [facility] Bilirubin, Direct 0.3 0.0 - 0.5 mg/dL [facility] Aspartate Amino Transferase 24 5 - 31 U/L [facility] Alanine Aminotransferase 22 0 - 31 U/L [facility] Total Protein 8.4(H) 6.5 - 8.0 g/dL [facility] Albumin Level 4.5 3.5 - 5.0 g/dL [facility] Alkaline Phosphatase 86 39 - 117 U/L [facility] 03/21/2023 11:0 2 AM EDT 03/21/2023 11:10 AM EDT us [facility] External Provider LAB BLO OD ORDERABLES Final Result [facility] [address] [place] [phone] * CBC auto differential (03/21/2023 11:02 AM EDT) White Blood Count 8.6 4.8 - 10.8 X10*3/uL [facility] Red Blood Count 4.76 4.20 - 5.50 X10*6/uL [facility] Hemoglobin 14.7 12.0 - 16.0 g/dl [facility] Hematocrit 44.3 37.0 - 47.0 % [facility] Mean Corpuscular Volume 93.1 80.0 - 98.0 fL [facility] Mean Corpuscular Hemoglobin 30.9 27.0 - 33.0 pg [facility] Mean Corpuscular HGB Conc 33.2 31.0 - 35.0 g/dl [facility] Red Cell Distribution Width 13.0 11.0 - 16.0 % [facility] Platelet Count 296 160 - 400 X10*3/uL [facility] Mean Platelet Volume 10.2 9.4 - 12.3 fL [facility] Neutrophils Percent Auto 55.5 45 - 73 % [facility] Imm Gran Pct Auto 0.2 0.0 - 0.4 % [facility] Lymphocytes Percent Auto 30.0 20 - 40 % [facility] Monocytes Percent Auto 10.0 2 - 11 % [facility] Eosinophils Percent Auto 3.8 0 - 4 % [facility] Basophils Percent Auto 0.5 0 - 2 % [facility] NRBC Pct Auto 0.0 0.0 - 0.2 /100WBC [facility] Neutrophils Absolute Auto 4.8 2.0 - 8.3 x10*3/uL [facility] Imm Gran Abs Auto 0.02 0.00 - 0.03 X10*3/uL [facility] Lymphocytes Absolute Auto 2.6 1.2 - 4.9 X10*3/uL [facility] Monocytes Absolute Auto 0.9 0.1 - 1.2 X10*3/uL [facility] Eosinophils Absolute Auto 0.3 0.0 - 0.4 X10*3/uL [facility] Basophils Absolute Auto 0.0 0.0 - 0.2 X10*3/uL [facility] NRBC Abs Auto 0.000 0.0 - 0.012 X10*3/uL [facility] 03/21/2023 11:0 2 AM EDT 03/21/2023 11:10 AM EDT us [facility] External Provider LAB BLO OD ORDERABLES Final Result [facility] [address] [place] [phone] * Lipid Panel, Standard (02/28/2023 8:17 AM EDT) Triglycerides 157 mg/dL [facility] Comment:Desirable Triglyceri de: less than 150 mg/dLBorderline High Triglyceride 150-199 mg/dLHigh Triglyceride: 200-499 mg/dLVery High Triglyceride: greater than or equal to 5OO mg/dL Cholesterol 186 mg/dL [facility] Comment:Desirable Cholestero l: less than 200 mg/dLBorderline High Cholesterol: 200-239 mg/dLHigh Cholesterol: greater than 239 mg/dL LDL Cholesterol Calculated 110 mg/dl [facility] Comment:Desirable LDL: less than 100 mg/dLNear Optimal/Above Optimal LDL: 110- 129 mg/dLBorderline High LDL: 130-159 mg/dLHigh LDL: 160-189 mg/dLVery High LDL: greater than or equal to 190 mg/dL HDL Cholesterol 45 mg/dL [facility] Comment:Desirable HDL: great er than 40 mg/dL Note: This HDL assay may give artificially low results in patients with liver disease. 02/28/2023 8:17 AM EDT 02/28/2023 11:24 AM EDT us Keely Townsend MD LAB BLOOD ORDERABLES Fin al Result [facility] [address] [place] [phone] * Hematoxylin and Eosin Stain (11/09/2022 11:12 AM EDT) 11/09/2022 11:1 2 AM EDT 11/09/2022 1:45 PM EDT Jazmyne [facility] - 11/10/2022 2:32 PM EDT ----- ------- Name: Holly Hicks ? Age/Sex: 61/F ? : 1960 Unit#: [id number] ?? Attend Dr: Dre Abebe MD ?Re11/09/22 ?Status: DEP REF ? Location: HO.LNP ?Disch: ? ----- ------- SPEC : [id number] ? RECD: 11/09/22 ? STATUS: ??SOUT ? REQ NUM: [id number] ? SANDY: 11/09/221112 ? SUBM DR: Dre Abebe MD ? ENTERED: ??11/09/222769 ?SP TYPE: Surgical ? OTHR DR: Keely Townsend MD ? ORDERED: ??HE Stain/2, Gross Micro L4 ? Diagnosis ?? Endometrium, biopsy: ?? -Strips of benign atrophic endometrium; no atypia or carcinoma. ?? -Benign endocervical glandular epithelium and scant squamous epithelium. ?Clinical History Postmenopausal bleeding ?Microscopic Description Microscopic sections reviewed. ? Material Received ?? EMB ? Gross Description Received in formalin labeled EMB is a 1.5 x 1.2 x 0.3 cm. aggregate of mucus, blood and multiple soft, congested and hemorrhagic, red-maroon tissue fragments. ??The specimen is submitted in toto in a single cassette labeled AAjay GONZALEZ Copies To: ?? Keely Townsend MD ?? [address] [facility] ?? [place] ? Dre Abebe MD ?? [address] [facility] [address] [facility] ?? [place] ?? [phone] ----- ------- Signed (signature on file) Peggy Beckman 11/10/22 1432 ? ----- ------- ? END OF REPORT ? us [facility] External Provider LAB BLO OD ORDERABLES Final Result [facility] [address] [place] [phone] documented in this encounter Visit Diagnoses Diagnosis Hypercholesterolemia- Primary Pure hypercholesterolemia Vitamin D deficiency documented in this encounter Care Teams Contract Officer Relationship Specialty Start Date End Date Keely Townsend MD [address] [place] [phone] PCP - General Family Medicine 11/15/19 documented as of this encounter
--- OUTSIDE RECORDS SUMMARY | 2024-09-03 10:29 | XMS_ITS | Encounter Summary ---
Author Organization [employer] Address [address] [facility] [address] [place] [address] Care Team Providers Care Hospital Nurse Liaison Name Role Phone Keely Townsend MD Primary Care Provider + Reason for Visit * Reason Comments Care Coordination CHW outreach for SDO H PT-1 and food needs-referral completed Encounter Details Date Type Department Care Team (Latest Contact Info) Description 08/05/2024 Patient Outreach [facility] [address] [place] [phone] Keely Townsend MD [address] [place] [address] Care Coordination (CHW outreach for SDOH PT-1 and food needs-referral completed /) Social History Tobacco Use Types Packs/Day Years Used Date Smoking Tobacco: Never Passive Smoke Exposure: Never Smokeless Tobacco: Never Alcohol Use Standard Drinks/Week Comments Never 0 (1 standard drink = 0.6 oz pur e alcohol) Housing Stability Answer Date Recorded What is your housing situation today? I have [place] 08/02/[address] you li ve. Do you have problems with any of the following? None of the above 08/02/2024 Food Insecurity Answer Date Recorded Within the past 12 months, y ou worried that your food would run out before you got money to buy more: Never True 08/02/2024 Within the past 12 months,th e food you bought just didn't last and you didn't have enough money to get more: Never True 04/2025 Transportation Answer Date Recorded In the past 12 months, has l ack of transportation kept you from medical appts, meetings, work or from getting things needed for daily living? Yes, it has kept me from medical appointments or getting medications. 08/02/2024 Utilities Answer Date Recorded In the past 12 months, has t he electric, gas, oil or water company threatened to shut off services in your home? No 08/02/2024 Depression Answer Date Recorded Patient Health Questionnaire-2 Score 0 08/09/2023 Internet Access Answer Date Recorded Internet Access Q1 Yes 08/02/2024 Internet Access Q2 Not on file 08/02/2024 Comments Unknown Sex and Gender Information Value Date Recorded Sex Assigned at Female 05/23/2022 10:33 AM EDT Legal Sex Female 10:33 AM EDT Gender Identity Female 05/23/2022 10:33 AM EDT Sexual Orientation Straight 05/23/2022 10 :33 AM EDT documented as of this encounter Progress Notes * Raymundo Barajas - 08/05/2024 9:29 AM EST CHW Raymundo Barajas, placed outbound call to patient for assistance with SDOH as a referral was received by the provider. Patient's name and were confirmed. Patient screened positive for the following SDOH food insecurities. Patient states family in on SNAP program at this time. CHW referral patient to the local list of pantries in the area for help. PT-1 requested was send out in behalf of patient for futures appt. Patient verbalizes understanding, and able to agree with plan to follow up.Patient educated on extended clinic hours on Mondays through Wednesdays, and Walk-In Urgent Care Located in [facility]. Patient provided with after-hours line for [facility], , which offer night time triage service and option to transfer to cardiac monitor technician provider if needed. documented in this encounter Plan of Treatment Upcoming Encounters Date Type Department Care Team (Late st Contact Info) Description 11/07/2024 11:30 AM EDT Office Visit [facility] [address] [place] [phone] Keely Townsend MD [address] [place], [place] [phone] documented as of this encounter Goals Goal Patient Goal Type Associated Problems Recent Progress Patient-Stated? Author Blood Pressure < 140/90 Blood Pressure 125/80(2024 9:23 AM EST) No Radha Akbar Patient will improve adherence to medication regimen, goal <2 missed doses per week General No Radha Akbar documented as of this encounter Visit Diagnoses Not on filedocumented in this encounter Care Teams Hospital Nurse Liaison Relationship Specialty Start Date End Date Keely Townsend MD [address] [place] [phone] PCP - General Family Medicine 11/15/19 documented as of this encounter
--- OUTSIDE RECORDS SUMMARY | 2024-09-03 10:29 | XMS_ITS | Encounter Summary ---
Author Organization [employer] Address [address] [facility] [address] [place] [address] Care Team Providers Care Gwot Ia/Ilo Intelligence Support Name Role Phone Keely Townsend MD Primary Care Provider + Reason for Visit * Reason Onset Date Comments October08/23/2024 Encounter Details Date Type Department Care Team ([facility] Contact Info) Description 08/23/2024 Telephone [facility] MED[facility]INE [address] [place], [place] [phone] Keely Townsend MD [address] [place], [place] [phone] October recall Social History Tobacco Use Types Packs/Day Years Used Date Smoking Tobacco: Never Passive Smoke Exposure: Never Smokeless Tobacco: Never Alcohol Use Standard Drinks/Week Comments Never 0 (1 standard drink = 0.6 oz pur e alcohol) Housing Stability Answer Date Recorded What is your housing situation today? I have ash [place]ury 08/02/[address] you li [...] Date Recorded Patient Health Questionnaire-2 Score 0 08/09/2024 Internet Access Answer Date Recorded Internet Access Q1 Yes 08/02/2024 Internet Access Q2 Not on file 08/02/2024 Comments Unknown Sex and Gender Information Value Date Recorded Sex Assigned at Female 05/23/2022 10:33 AM EDT Legal Sex Female 10:33 AM EDT Gender Identity Female 05/23/2022 10:33 AM EDT Sexual Orientation Straight 05/23/2022 10 :33 AM EDT documented as of this encounter Miscellaneous Notes * Telephone Encounter - July Najera [place] - 08/23/2024 10:19 AM EST Tc to pt to schedule fu htn/labs recall appt. Appt has been scheduled for 11/07/24 at 11:30 am. documented in this encounter Plan of Treatment Upcoming Encounters Date Type Department Care Team (Late st Contact Info) Description 11/07/2024 11:30 AM EDT Office Visit [facility]INE [address] [place] [address] Keely Townsend MD [address] [place] [phone] documented as of this encounter Goals Goal Patient Goal Type Associated Problems Recent Progress Patient-Stated? Author Blood Pressure < 140/90 Blood Pressure 125/80(2024 9:23 AM EST) No Radha Akbar Patient will improve adherence to medication regimen, goal <2 missed doses per week General No Radha Akbar documented as of this encounter Visit Diagnoses Not on filedocumented in this encounter Care Teams [employer] Support Relationship Specialty Start Date End Date Keely Townsend MD [address] [place] [phone] PCP - General Family Medicine 11/15/19 documented as of this encounter
--- OUTSIDE RECORDS SUMMARY | 2024-09-03 10:29 | XMS_ITS | Encounter Summary ---
Author Organization [employer] Address [address] [facility] [address] [place] [address] Care Team Providers Care Hydrology Professor Name Role Phone Keely Townsend MD Primary Care Provider + Encounter Details Date Type Department Care Team (Latest Contact Info) Description 08/09/2024 Travel Social History Tobacco Use Types Packs/Day Years [...] AM EDT documented as of this encounter Plan of Treatment Upcoming Encounters Date Type Department Care Team (Late st Contact Info) Description 11/07/2024 11:30 AM EDT Office Visit [facility] MEDICINE [address] [place] [address] Keely Townsend MD [address] [place] [phone] documented as of this encounter Goals Goal Patient Goal Type Associated Problems Recent Progress Patient-Stated? Author Blood Pressure < 140/90 Blood Pressure 125/80(2024 9:23 AM EST) No Radha Akbar Patient will improve adherence to medication regimen, goal <2 missed doses per week General No Radha Akbar documented as of this encounter Visit Diagnoses Not on filedocumented in this encounter Care Teams Hydrology Professor Relationship Specialty Start Date End Date Keely Townsend MD [address] [place] [address] PCP - General Family Medicine 11/15/19 documented as of this encounter
--- OUTSIDE RECORDS SUMMARY | 2024-09-03 10:29 | XMS_ITS | Encounter Summary ---
Author Organization [employer] Address [address] [facility] [place] [address] Care Team Providers Care Ccna Name Role Phone Keely Townsend MD Primary Care Provider + Reason for Visit * Reason Onset Date Comments Chart prep 08/08/2024 Encounter Details Date Type Department Care Team ([facility] Contact Info) Description 08/08/2024 Telephone [facility] MEDICINE [address] [place], [place] [phone] July Najera [place] Chart prep Social History Tobacco Use Types Packs/Day Years [...] Telephone Encounter - July Najera [place] - 08/08/2024 1:29 PM EST Chart Prep Labs: done Images: done Vaccines due: yes Referrals: pending appt Screenings: colonoscopy Overdue care gaps: Up to date documented in this encounter Plan of Treatment Upcoming Encounters Date Type Department Care Team (Late st Contact Info) Description 11/07/2024 11:30 AM EDT Office Visit [facility] MED[facility]INE [address] [place] [address] Keely Townsend MD [address] [place] [address] documented as of this encounter Goals Goal Patient Goal Type Associated Problems Recent Progress Patient-Stated? Author Blood Pressure < 140/90 Blood Pressure 125/80(2024 9:23 AM EST) No Radha Akbar Patient will improve adherence to medication regimen, goal <2 missed doses per week General No Radha Akbar documented as of this encounter Visit Diagnoses Not on filedocumented in this encounter Care Teams Ccna Relationship Specialty Start Date End Date Keely Townsend MD [address] [place] [id number] PCP - General Family Medicine 11/15/19 documented as of this encounter
--- OUTSIDE RECORDS SUMMARY | 2024-09-03 10:29 | XMS_ITS | Clinical Summary ---
Author Organization [employer] Address [address] [facility] [address] [place] [address] Care Team Providers Care University Administrator Name Role Phone Keely Townsend MD Primary Care Provider + Allergies No known active allergies Medications ibuprofen 800 MG tablet Take 1 tablet by mouth every 8 (eight) hours. Take 1 tablet by oral route 3 times every day with food 10/28/19 22 Active Blood Pressure kit Take by [facility]. (non-drug; combo) route every day Active Spacer/Aero-Hold ing Chambers (AeroChamber Z-Stat Plus) inhaler by Other route. Use with inhaler Active prazosin (Minipress) 2 MG capsule TAKE 1 CAPSULE BY MOUTH AT BEDTIME NEEDED PARA PESADILLAS 09/28/19 23 Active QUEtiapine (SEROquel) 100 MG tablet TAKE 1 AND 1/2 TABLETS BY MOUTH AT BEDTIME FOR (for mood) 08/18/19 23 Active sertraline (Zoloft) 100 MG tablet Take 150 mg by mouth in the morning. 09/28/19 23 Active loratadine (Claritin) 10 MG tablet Take 1 tablet (10 mg) by mouth in the morning. 90 tablet 1 04/25/20 23 Active Stimulant Laxative 8.6-50 MG tabletIndication s:Slow transit constipation TAKE 1 TABLET BY MOUTH EVERY MORNING 90 tablet 3 07/04/20 23 Active cyclobenzaprine (Flexeril) 10 MG tabletIndication s:Trigger middle finger of right hand Take 1 tablet (10 mg) by mouth if needed in the morning and at bedtime for muscle spasms. 60 tablet 1 08/09/19 24 Active ammonium lactate (Lac-Hydrin) 12 % creamIndications :Lichenoid keratosis Apply topically if needed for dry skin. 385 g 1 09/18/19 24 025 Active Misc. Devices (Pulse Oximeter For Finger) miscIndications: COVID-19 Check your O2 sat every 4 hours. Call the office if < 88 % 1 each 12/11/19 24 Active amLODIPine (Norvasc) 10 MG tabletIndication s:Primary hypertension TAKE 1 TABLET BY MOUTH EVERY MORNING 90 tablet 1 03/20/20 24 Active rosuvastatin (Crestor) 20 MG tabletIndication s:Hypercholester olemia TAKE 1 TABLET BY MOUTH EVERY MORNING 90 tablet 1 04/23/20 24 Active chlorthalidone (Hygroton) 25 MG tabletIndication s:Primary hypertension TAKE 1 TABLET BY MOUTH EVERY MORNING 90 tablet 1 04/23/20 24 Active triamcinolone (Kenalog) 0.1 % creamIndications :Irritant contact dermatitis due to detergent Apply topically if needed in the morning and at bedtime (pain and swelling). 30 g 2 04/29/20 24 Active betamethasone valerate (Valisone) 0.1 % creamIndications :Lichenoid keratosis Apply topically if needed in the morning and at bedtime (dryness). 15 g 05/14/20 24 Active albuterol (Ventolin HFA) 108 (90 Base) MCG/ACT inhaler Inhale 2 puffs every 4 (four) hours if needed for wheezing or shortness of breath. 18 g 3 05/14/20 24 025 Active fluticasone (Flonase) 50 MCG/ACT nasal spray INHALE 2 SPRAYS IN EACH NOSTRIL EVERY DAY 48 g 05/14/20 24 Active Mometasone Furoate (Asmanex HFA) 100 MCG/ACT aerosolIndicatio ns:Mild intermittent asthma without complication 1 puff in the morning and at bedtime. Rinse mouth with water after use to reduce aftertaste and incidence of candidiasis. Do not swallow. 13 g 5 05/14/20 24 Active gabapentin (Neurontin) 100 MG capsule Take 1 capsule (100 mg) by mouth at bedtime. 90 capsule 3 08/09/19 25 026 Active ergocalciferol (Vitamin D2) 1.25 MG (94994 UT) capsule Take 1 capsule (1.25 mg) by mouth 1 (one) time per week. 12 capsule 1 08/09/19 25 025 Active calcium carbonate EX (Calcium Antacid Extra Strength) 750 MG chewable tabletIndication s:Gastroesophage al reflux disease without esophagitis Chew 1 tablet (750 mg) 2 times daily. 90 tablet 3 08/09/19 25 026 Active Calcium Antacid Extra Strength 750 MG chewable tabletIndication s:Gastroesophage al reflux disease without esophagitis CHEW 1 TABLET THREE TIMES DAILY IN THE MORNING, AT NOON, AND AT BEDTIME NEEDED FOR INDIGESTION OR HEARTBURN 90 tablet 3 04/04/20 23 025 Discontinu ed(Therapy completed) acetaminophen (Tylenol) 500 MG tabletIndication s:COVID-19 Take 1 tablet (500 mg) by mouth every 8 (eight) hours if needed for mild pain. 30 tablet 12/11/19 24 025 Discontinu ed(Ineffec tive) acetaminophen (Acetaminophen 8 Hour) 650 MG ER tablet Take 1 tablet (650 mg) by mouth every 8 (eight) hours if needed for mild pain for up to 20 days. Do not crush, chew, or split. 60 tablet 08/09/19 25 025 Active Problems Problem Noted Date Diagnosed Date Psychophysiological insomnia 08/09/2024 Assessment & Plan (08/09/2024 1:20 PM EST): Most likely related to anxiety, start Gabapentin at bedtime. Continue Prazosin and medication for anxiety. FU with mental health team. Hypokalemia 08/09/2024 Assessment & Plan (08/09/2024 1:24 PM EST): Most likely related to diuretics. Gave her information on potassium rich diet and she will eat at least one of these food items daily. Continue Chlorthalidone and other BP meds. FU BP in 3 months. Class 1 obesity due to exces s calories with serious comorbidity and body mass index (BMI) of 32.0 to 32.9 in adult 08/09/2024 Assessment & Plan (08/09/2024 3:45 PM EST): Discussed re weight reduction options including exercise, life style modifications, diet. Recommended to decrease soda and sugary beverage consumption, increase protein intake with meals (at least 1 portion of protein with each meal) to assist with satiety, increase dietary fiber Recommended at least 150 min/week of moderate intensity exercise. Declined a referral to dietitian Otalgia of left ear 05/14/2024 Assessment & Plan (05/14/2024 3:09 PM EDT): Unclear reason, no evidence of TM perforation. Refer to ENT. Otitis of left ear 04/29/2024 Sensation of plugged ear on both sides Irritant contact dermatitis due to detergent 01/2024 Assessment & Plan (04/29/2024 11:13 AM EDT): Avoid offending agent Use gloves when doing dishes Acquired skin tag 09/20/2023 Assessment & Plan (09/20/2023 8:12 PM EST): On neck, resected, see procedure note. At high risk for fracture 08/10/2023 Assessment & Plan (08/10/2023 8:54 AM EST): Due to OA LE/back has a risk of falls. Postmenopause state puts her at risk of fracture Order BMD test Skin tag 08/09/2023 Lichenoid keratosis 08/09/2023 Assessment & Plan (09/20/2023 8:11 PM EST): On both elbows, not improved with betamethasone, ro psoriasis? Referral to dermatology is in Assessment & Plan (09/13/2023 8:05 PM EST): Wants to be referred to dermatology Mild intermittent asthma without complication Assessment & Plan (08/09/2024 1:10 PM EST): Seems to be controlled Continue Asmanex daily and Albuterol PRN. She declined the COVID and Influenza immunizations at this time. FU PRN. Assessment & Plan (05/14/2024 3:11 PM EDT): Restart Asmanex daily and continue Albuterol prn. Influenza Immunization up to date, advised to get Covid booster. Assessment & Plan (09/13/2023 7:59 PM EST): Controlled Continue inhaled steroid daily, will rx asmanex to replace Flovent which is retired from the market and albuterol prn. FU in 6m Counseled to up date covid and pneumonia vax, declined. Assessment & Plan (03/08/2023 2:12 PM EDT): Restart Flovent 110bid, continue Proair prn only FU in 4m Counseled to get Covid bivalent booster. Intrinsic eczema 12/06/2022 Assessment & Plan (05/14/2024 4:29 PM EDT): On right eye lid. Use betamethasone cream BID, apply gently and avoid contact with conjunctiva. Assessment & Plan (09/20/2023 8:11 PM EST): Resolved with betamethasone cream Continue steroid cream prn Assessment & Plan (12/06/2022 11:28 AM EDT): on upper back. use triamcinolone cream along with moisturizer, no evidence of rash at this time History of postmenopausal bleeding 12/06/2022 Overview (12/06/2022): Sp NORMAL endometrial bx on 10/2022 Assessment & Plan (12/06/2022 11:26 AM EDT): resolved. Recent endometrial biopsy wnl FU with [employer] PRN Vitamin D deficiency 12/06/2022 Assessment & Plan (08/09/2024 1:12 PM EST): Start Vit D supplements X 6 months. Advice exercise 50 minutes daily. Assessment & Plan (09/20/2023 8:11 PM EST): Start vit D supplementation x 6m Assessment & Plan (09/13/2023 8:03 PM EST): Order vit d levels Assessment & Plan (12/06/2022 11:31 AM EDT): Started on vitamin d x 3 months, encouraged outdoor exercise and fu vit d in 3 months. Gastroesophageal reflux disease without esophagi tis 12/06/2022 Assessment & Plan (08/09/2024 1:21 PM EST): Doing well on TUMS PRN It seems to have been related to calcium therapy. Continue TUMS PRN. Assessment & Plan (12/06/2022 11:26 AM EDT): use tums PRN and counseled regarding weight reduction Visit for preventive health examination 08/04/19 Assessment & Plan (08/09/2024 11:27 AM EST): Discussed with patient re increase fresh fruit and vegetable intake. Counseled re moderate exercise as tolerated, up to 20min/d Patient feels safe at home. PAP smear: UTD next due on 2026 Mammogram: UTD next due 03/2025. Bone density test: UTD, next due 09/2025. Eye exam: UTD, next due 02/2026 CRC screen: Overdue, has appointment for colonoscopy next month. Lipids/FBS: UTD, next due 01/2025 Vaccinations: Declined COVID booster. Will FU on PCV and RSV on next visit. Dental visit: Overdue, patient advice to make appointment in dental clinic every six months. Assessment & Plan (09/14/2023 2:01 PM EST): Discussed with patient re increase fresh fruit and vegetable intake. Counseled re moderate exercise as tolerated, up to 20min/d Patient feels safe at home. PAP smear: UTD, next one due on 2024 Mammogram: UTD, Next one due on 03/2024 Bone density test: TBO Eye exam: UTD, next one due on 10/2024. CRC screen:Never fu on appt since 2019, agreed to new referral Lipids/FBS:UTD, next one due on 02/2024 Vaccinations: Declined covid booster. Dental visit: Over due, she will call dental clinic to schedule appt. Assessment & Plan (08/04/2022 10:17 PM EST): Discussed with patient re increase fresh fruit and vegetable intake. Counseled re moderate exercise as tolerated, up to 20min/d Patient feels safe at home. PAP smear: Uptodate, next one due on 2024 Mammogram: Up to date, next one due on 02/2023 Bone density test: Ordered Eye exam: Up to date, next one due on 04/2023 CRC screen: Declined to follow up w colonoscopy on 2019. Hemoccult ordered Lipids/FBS: Ordered Vaccinations: Influenza vax given today, declined covid. Counseled to walk in for covid booster BARRY. Td due on 2029. Order MMR titers, TB test Dental visit: Up to date, due later this year. Slow transit constipation 08/04/2022 Assessment & Plan (08/04/2022 10:18 PM EST): Rx Senna/colace Acute asthma 06/20/2022 Acute otitis externa 06/20/2022 Acute vaginitis 06/20/2022 Calcaneal spur 06/20/2022 Assessment & Plan (08/04/2022 9:49 PM EST): Podiatry appt done previously Chronic pain of right heel 06/20/2022 Heel pain 06/20/2022 COVID-19 06/20/2022 Dermoid cyst 06/20/2022 Dysuria 06/20/2022 Hand pain 06/20/2022 Hypercholesterolemia 06/20/2022 Assessment & Plan (08/09/2024 1:18 PM EST): It is likely that the higher dose of Seroquel is interfering with lipid metabolism. I advised her to lower Seroquel to 50mg and FU with mental health provider. She will start taking Gabapentin at bedtime for insomnia and anxiety. Continue Crestor 20mg and FU lipids in 6 months. Assessment & Plan (03/08/2023 2:11 PM EDT): Improving, Doing well on Crestor, tolerates well. Continue Crestor 10mg and fu lipids and LFTs in 1y Assessment & Plan (12/06/2022 11:27 AM EDT): Started on crestor 10 mg fu lipids in 3 months. We discussed re rx options. She wants to be more strict with life style modifications. Recommended moderate amount of exercise and increased consumption of fruit, vegetables, fish and high fiber foods. We discussed about avoiding consumption of highly saturated fats or trans fats. Assessment & Plan (08/04/2022 9:51 PM EST): On atorvastatin Recommended moderate amount of exercise and increased consumption of fruit, vegetables, fish and high fiber foods. We discussed about avoiding consumption of highly saturated fats or trans fats. Hypertensive disorder 06/20/2022 Assessment & Plan (05/14/2024 3:13 PM EDT): Controlled. Compliant w/meds Continue Chlorthalidone + Amlodipine same dose Counseled re low salt diet/increase moderate physical activity. Check home BP BIW and prn CP/BURGOS/MORALES Non smoking patient. Follow up in 3-4 months. Assessment & Plan (04/29/2024 11:14 AM EDT): Today a little elevated possibly due to pain, monitor BP at home take medications as prescribed and f/u with PCP Assessment & Plan (09/13/2023 8:01 PM EST): Controlled. Compliant w/meds Continue chlorthalidone + amlodipine same dose Counseled re low salt diet/increase moderate physical activity. Check home BP BIW and prn CP/BURGOS/MORALES Non smoking patient. FU in 6m Assessment & Plan (03/08/2023 2:14 PM EDT): Controlled. Compliant w/meds Continue chlortalidone + amlodipine same dose, wants to be referred for medboxes. Counseled re low salt diet/increase moderate physical activity. Check home BP BIW and prn CP/BURGOS/MORALES Non smoking patient. FU in 4-6m Assessment & Plan (12/06/2022 11:29 AM EDT): BP is at goal. Continue [id number] mg + amlodipine 10 mg and FU bp in 3 months. Counseled re low salt diet/increase moderate physical activity. Check home BP BIW and prn CP/BURGOS/MORALES Non smoking patient. Assessment & Plan (08/04/2022 9:48 PM EST): Controlled. Compliant w/meds Continue chlorthalidone + amlodipine same dose Counseled re low salt diet/increase moderate physical activity. Check home BP BIW and prn CP/BURGOS/MORALES Non smoking patient. IFG (impaired fasting glucose) 06/20/2022 Assessment & Plan (09/13/2023 8:02 PM EST): I have discussed with patient regarding increasing physicial activity and decrease calorie intake I'll check FBS with next set of labs. To check RBS at next visit. FU with me 6m Assessment & Plan (08/04/2022 9:50 PM EST): Order labs. Counseled re more frequent low calorie/carb meals. Encouraged physical activity as tolerated. FU in 6 months. Influenza-like symptoms 06/20/2022 Internal hemorrhoids without complication 2021 Assessment & Plan (03/08/2023 2:10 PM EDT): Asymptomatic. Patient had been referred for screen colonoscopy On 2019 but it looks like she never fu there. I will fu at upcoming PE Pruritus 06/20/2022 Nodule of skin of back 06/20/2022 Trigger middle finger of right hand 06/20/2022 Assessment & Plan (09/13/2023 8:02 PM EST): She'll apply heat to affected area + Diclofenac gel prn Re consult prn if sxs persists x than 4w, may need steroid injection. Assessment & Plan (12/06/2022 11:24 AM EDT): Improved continue stretching exercises and use of hand brace if needed use flexeril or tylenool PRN reconsult PRN Vascular headache 06/20/2022 Vasomotor rhinitis 06/20/2022 Visual impairment 06/20/2022 Headache disorder 06/20/2022 Encounters Date Type Department Care Team Description 08/23/[address] [phone] Keely Townsend MD October08/09/2024 10:00 AM EST Office Visit [address] [phone] Keely Townsend MD Visit for preventive health examination (Primary Dx); Mild intermittent asthma without complication; Vitamin D deficiency; Hypercholesterolemia; Psychophysiological insomnia; Gastroesophageal reflux disease without esophagitis; Hypokalemia; Class 1 obesity due to excess calories with serious comorbidity and body mass index (BMI) of 32.0 to 32.9 in adult; Dietary counseling; Exercise counseling 08/09/2024 Travel 08/08/[address] [phone] July Najera MA Chart prep 08/05/2024 Patient Outreach [address] [phone] Keely Townsend MD Care Coordination ([facility] outreach for SDOH PT-1 and food needs-referral completed /) 08/02/2024 Patient Outreach [facility] [address], [place] [phone] Keely Townsend MD Pre-visit Planning (SDOH positive, Tobacco screening negative.) 07/30/[address] [phone] Keely Townsend MD Returning call 07/30/2024 Orders Only [address] [phone] Keely Townsend MD Hypokalemia (Primary Dx) 07/30/[address] [phone] Keely Townsend MD CRITICAL RESULT 06/10/[address] [phone] Keely Townsend MD July recall from Last 3 Months Immunizations Name Administration Dates Next Due Influenza Injectable Quadriv alant Preservative Free IIV4 MDCK 05/29/2023 Influenza injectable quadriv alent IIV4 with preservative 08/06/2019 Influenza injectable quadrivalent preservative f ree 08/04/2022,06/11/2021 Influenza, seasonal, injectable, preservative fr ee 04/25/2024 Moderna Covid-19 Vaccine 12+ 12/29/2020,12/02/19 21 Tdap 08/06/2019 Zoster, Recombinant 06/30/2023,04/24/2023 Family History Medical History Relation Name Comments Breast cancer Sister Relation Name Status Comments Sister Social History Tobacco Use Types Packs/Day Years Used Date Smoking Tobacco: Never Passive Smoke Exposure: Never Smokeless Tobacco: Never Tobacco Cessation:Counseling Given: Not Answered Alcohol Use Standard Drinks/Week Comments Never 0 [...] Orientation Straight 05/23/2022 10 :33 AM EDT Last Filed Vital Signs Vital Sign Reading Time Taken Comments Blood Pressure 125/80 08/09/2024 9:23 AM EST Pulse 89 08/09/2024 9:23 AM EST Temperature 36.4 ??C (97.6 ??F) 08/09/2024 9:23 AM ES T Respiratory Rate 16 08/09/2024 9:23 AM EST Oxygen Saturation 98% 08/09/2024 9:23 AM EST Inhaled Oxygen Concentration - - Weight 79.4 kg (175 lb 2 oz) 08/09/2024 9:23 AM EST Height 157.5 cm (5' 2 ) 08/09/2024 9:23 AM EST Body Mass Index 32.03 08/09/2024 9:23 AM EST Plan of Treatment Upcoming Encounters Date Type Department Care Team (Late st Contact Info) Description 11/07/2024 11:30 AM EDT Office Visit [facility] [address] [place] [address] Keely Townsend MD [address] [place] [address] Health Maintenance Due Date Last Done Comments CT Colonography 1961 Colonoscopy 1961 Colorectal Cancer Screening 1961 FIT DNA/Cologuard 1961 FIT 1961 FOBT 1961 HIV Screening 1961 Sigmoidoscopy 1961 Alcohol/Substance Use Screening 1973 Pneumococcal Vaccine: 50+ Years (1 of 2 - PCV) 1980 RSV Patients and Patients Aged 60 years or older (1 - Risk 60-74 years 1-dose series) 2021 COVID-19 Vaccine ( season) 2024 12/29/2020, 12/01/2020 Mammogram 04/04/2025 04/04/2024, 0901/2023, 03/23/2022, Additional history exists SDOH Screening 08/02/2025 08/02/2024 Depression Screening 08/09/2025 08/09/2024, 08/09/19 25 Tobacco Screening 08/09/2025 08/09/2024 Cervical Cancer Screening 10/14/2026 HPV/Cotest 10/14/2026 10/14/2021, 09/03/2019 Pap Smear 10/14/2026 10/14/2021 Lipid Panel 07/30/2029 07/30/2024, 08/0 02/2023, 08/09/2022, Additional history exists DTaP/Tdap/Td Vaccines (2 - Td or Tdap) 08/06/2029 08/06/2019 Hepatitis C Screening Completed 08/09/2022 Zoster Vaccines Completed 06/30/2023, 04/24/2023 Influenza Vaccine Completed 04/25/2024, , 08/04/2022, Additional history exists HIB Vaccines Aged Out No longer eligi ble based on patient's age to complete this topic HPV Vaccines Aged Out No longer eligi ble based on patient's age to complete this topic Hepatitis A Vaccines Aged Out No long er eligible based on patient's age to complete this topic Hepatitis B Vaccines Aged Out No long er eligible based on patient's age to complete this topic IPV Vaccines Aged Out No longer eligi ble based on patient's age to complete this topic Meningococcal Vaccine Aged Out No bret mare eligible based on patient's age to complete this topic RSV under 20 months Aged Out No longe r eligible based on patient's age to complete this topic Rotavirus Vaccines Aged Out No longer eligible based on patient's age to complete this topic Goals Goal Patient Goal Type Associated Problems Recent Progress Patient-Stated? Author Blood Pressure < 140/90 Blood Pressure 125/80(2024 9:23 AM EST) No Radha Akbar Patient will improve adherence to medication regimen, goal <2 missed doses per week General No Radha Akbar Procedures Procedure Name Priority Date/Time Associated Diagnosis Comments MAGNESIUM Routine 08/05/2024 8:00 AM EST Hypokalemia POTASSIUM Routine 08/05/2024 8:00 AM EST Hypokalemia VITAMIN D,25-OH,TOTAL,IA Routine 07/30/2024 8:13 AM EST Primary hypertension Intrinsic eczema LIPID PANEL WITH REFLEX TO DIRECT LDL Routine 07/30/2024 8:13 AM EST Primary hypertension BASIC METABOLIC PANEL Routine 07/30/2024 8:13 AM EST Primary hypertension BI MAMMOGRAM SCREENING TOMOSYNTHESIS BILATERAL Routine 04/04/2024 10:45 AM EDT HEPATITIS PANEL, GENERAL Routine 08/09/2022 8:16 AM EST Visit for preventive health examination HM PAP/HPV Routine 10/14/2021 from Last 3 Months or Most Recently Relevant to Health Maintenance Results * Potassium (08/05/2024 8:00 AM EST) Potassium 3.3 3.3 - 5.1 mmol/L [facility] Blood Venous blood specimen / Unknown 08/05/2024 8:00 AM EST 08/05/2024 10:59 AM EST us Keely Townsend MD LAB BLOOD ORDERABLES Fin al Result Performing Organization Address [facility]/ZIP Co de Phone Number [facility] [address] [place] [phone] * Magnesium (08/05/2024 8:00 AM EST) Magnesium 1.8 1.6 - 2.6 mg/dL [facility] Blood Venous blood specimen / Unknown 08/05/2024 8:00 AM EST 08/05/2024 10:59 AM EST Keely Townsend MD LAB BLOOD ORDERABLES Fin al Result Performing Organization Address City/[facility]/ZIP Co de Phone Number [facility] [address] [place] [phone] * (ABNORMAL) Vitamin D, 25-Hydroxy, Total, Immunoassay (07/30/2024 8:13 AM EST) Vitamin D 25-OH Total 25.5(L) >30 ng/mL [facility] Comment:Health Based Referen ce Values*< 20 ng/mL [id number] ng/mL Insufficient> 30 ng/mL Sufficient*[place]. N Engl J Med. 2007;357:266-280Care must be taken in interpreting Vitamin D results fromdifferent laboratories and methodologies. Published datademonstrated that results from patients undergoinghemodialysis may show a negative bias when tested withvarious automated 25-OH vitamin D assays when compared toLC-MS/MS.When testing samples from patients whose predominant form ofVitamin D is Vitamin D2, such as patients receiving VitaminD2 supplementation, results that are subtherapeutic shouldbe confirmed with another method such as LC-MS/MS. Blood 07/30/2024 8:13 AM EST 07/30/2024 11:15 AM EST us Keely Townsend MD LAB BLOOD ORDERABLES Fin al Result [facility] [address] [place] [phone] * (ABNORMAL) Lipid Panel with Reflex to Direct LDL (07/30/2024 8:13 AM EST) Triglycerides 212(H) <150 mg/dL [facility] Comment:Desirable Triglyceri de: less than 150 mg/dLBorderline High Triglyceride 150-199 mg/dLHigh Triglyceride: 200-499 mg/dLVery High Triglyceride: greater than or equal to 5OO mg/dL Cholesterol 300(H) <200 mg/dL [facility] Comment:Desirable Cholestero l: less than 200 mg/dLBorderline High Cholesterol: 200-239 mg/dLHigh Cholesterol: greater than 239 mg/dL LDL Cholesterol Calculated 213(H) <100 mg/dL [facility] Comment:Desirable LDL: less than 100 mg/dLNear Optimal/Above Optimal LDL: 110- 129 mg/dLBorderline High LDL: 130-159 mg/dLHigh LDL: 160-189 mg/dLVery High LDL: greater than or equal to 190 mg/dL HDL Cholesterol 45 >40 mg/dL [facility] Comment:Desirable HDL: great er than 40 mg/dL Note: This HDL assay may give artificially low results in patients with liver disease. Blood 07/30/2024 8:13 AM EST 07/30/2024 11:15 AM EST us Keely Townsend MD LAB BLOOD ORDERABLES Fin al Result [facility] [address] [place] [phone] * (ABNORMAL) Basic Metabolic Panel (07/30/2024 8:13 AM EST) Sodium 142 135 - 145 mmol/L [facility] Potassium 2.9(LL) 3.3 - 5.1 mmol/L [facility] Comment:Critical value for K : Results called to and read back by:GHISLAINE Blair Person calling: AMY Date: 07/30/24 Time: 1236 Chloride 102 96 - 108 mmol/L [facility] Carbon Dioxide 29 22 - 29 mmol/L [facility] Anion Gap 14 12 - 20 [facility] Urea Nitrogen (BUN) 15 9 - 16 mg/dL [facility] Creatinine, Serum 0.81 0.5 - 1.4 mg/dL [facility] LABS Estimated Glomerular Filt Rate >60 [facility] Comment:Chronic Kidney Disea se: Estimated GFR < 60 mL/min/1.80l6Oatiuv Kidney Disease: Estimated GFR < 15 mL/min/1.73m2 Glucose 106 60 - 115 mg/dL [facility] Calcium 9.9 8.4 - 10.2 mg/dL [facility] Blood Venous blood specimen / Unknown 07/30/2024 8:13 AM EST 07/30/2024 11:15 AM EST us Keely Twonsend MD LAB BLOOD ORDERABLES Fin al Result [facility] [address] [place] [phone] * BI Mammogram Screening Tomosynthesis Bilateral (04/04/2024 10:45 AM EDT) Anatomical Region Laterality Modality Breast Bilateral Mammography 04/04/2024 10:4 5 AM EDT Narrative 04/17/2024 7:50 PM EDT ? [facility] ? [address] ?[place] [id number] ? Mammography Report ? Signed ? Patient: Holly Hicks ?M ?? R#: [id number] ? : 1960 ?Acct:[id number] ? Age/Sex: 63 / F ?ADM Date: 04/04/24 ? Loc: HO.MAMMO ? Attending Dr: Keely Townsend MD ? Ordering Physician: Keely Townsend MD ?Results: 1Ne ?? gative ? Date of Service: 04/04/24 ?Follow Up: 1 Year From Orig ?? inal Mammogram ? Procedure(s): MM tomosynthesis screening BI ?? Accession Number(s): [id number] ? cc: Keely Townsend MD ? EXAMINATION: ?? MM SCREENING DIGITAL BREAST TOMOSYNTHESIS, BILATERAL ? CLINICAL INFORMATION: ? Screening. Asymptomatic. ? COMPARISON: ?? Mammography: Comparison is made with available priors ? TECHNIQUE: ?? Digital breast mammography with tomosynthesis is performed in both the ?? craniocaudal and mediolateral oblique views along with computer-aided ?? detection (CAD). ? FINDINGS: ?? There are scattered areas of fibroglandular density (ACR BI-RADS breast ?? composition Category b). ? There are no significant masses, abnormal calcifications, or other ?? abnormalities. ? MM/MM tomosynthesis screening BI ?? IMPRESSION: ?? No mammographic evidence of malignancy. ? ASSESSMENT: ? BI-RADS BI-RADS 1 - Negative ? RECOMMENDATION: ?? Routine annual mammography screening. ? 1 year F/U ? This examination should not preclude the clinical evaluation of a ?? suspicious palpable abnormality. ? This patient's information was entered into a reminder system with a ?? target due date for their next mammogram. ? Electronically signed by: ??Kirti Mancera DO ??04/17/2024 07:47 PM EDT ? Dictated By: ?Kirti Mancera DO ? Signed By: ?<Electronically signed by Kirti Mancera, DO in OV> ? 04/17/24 1947 ? DD/ 1045 ? TD/TT: 04/04/24 1101 ? Self Pay Representative: ? Procedure Note Taylor Lester - 04/17/2024 [facility] [address] [place] [address] Dr. [place], [place] [address] Mammography Report Signed Patient: Coral Hicks#: [id number] : 2Acct:[id number] Age/Sex: 63 / FADM Date: 04/04/24 Loc: [facility] Attending Dr: Keely Townsend MD Ordering Physician: Keely Townsendesults: 1Ne gative Date of Service: 04/04/24Follow Up: 1 Year From Orig inal Mammogram Procedure(s): MM tomosynthesis screening BI Accession Number(s): [id number] cc: Keely Townsend MD EXAMINATION: MM SCREENING DIGITAL BREAST TOMOSYNTHESIS, BILATERAL CLINICAL INFORMATION: Screening. Asymptomatic. COMPARISON: Mammography: Comparison is made with available priors TECHNIQUE: Digital breast mammography with tomosynthesis is performed in both the craniocaudal and mediolateral oblique views along with computer-aided detection (CAD). FINDINGS: There are scattered areas of fibroglandular density (ACR BI-RADS breast composition Category b). There are no significant masses, abnormal calcifications, or other abnormalities. MM/MM tomosynthesis screening BI IMPRESSION: No mammographic evidence of malignancy. ASSESSMENT: BI-RADS BI-RADS 1 - Negative RECOMMENDATION: Routine annual mammography screening. 1 year F/U This examination should not preclude the clinical evaluation of a suspicious palpable abnormality. This patient's information was entered into a reminder system with a target due date for their next mammogram. Electronically signed by: Kirti Mancera DO 04/17/2024 07:47 PM EDT Dictated By: Kirti Mancera DO Signed By: <Electronically signed by Kirti Mancera DO in OV> 04/17/241946 DD/ 1045 TD/TT: 04/04/24 1101 Self Pay Representative: Keely Townsend MD [facility] PROCEDURES Edited Result - Final * (ABNORMAL) Hepatitis Panel, General (08/09/2022 8:16 AM EST) Hepatitis A Antibody Total REACTIVE( A) NON-REACT [employer] [place] [facility] Comment: For additional information, please refer to http://education.freshbag/faq/HFY429 (This link is being provided for informational/ educational purposes only.) Hepatitis B Surface Antibody QL NON-REACT ZOAY NON-REACT [facility]OY[facility] [employer] [place] [facility] Hepatitis B Surface Ag NON-REACT ZOYA NON-REACT [employer] [place] [facility] Hepatitis B Core Antibody Total NON-REACT ZOYA NON-REACT [employer] [place] [employer] Hepatitis C Antibody NON-REACT ZOYA NON-REACT ZOYA [employer] Index <0.02 <1.00 [employer] Comment: HCV antibody was non-reactive. There is no laboratory evidence of HCV infection. In most cases, no further action is required. However, if recent HCV exposure is suspected, a test for HCV RNA (test code 98839) is suggested. For additional information please refer to http://education.freshbag/faq/GQP76y3 (This link is being provided for informational/ educational purposes only.) 08/09/2022 8:16 AM EST 08/09/2022 8:16 AM EST Narrative [facility] - 08/13/2022 10:02 PM EST FASTING:YES FASTING: YES Keely Townsend MD LAB BLOOD ORDERABLES Fin al Result [facility] [address], [place] [address] [employer] [place] [facility] [address] [facility], ([address]) [place] [address] * HM PAP/HPV (10/14/2021) Pap Smear 1. NILM 1. NILM HPV Not Detected Undetected, Indeterminat e, Quantitative , Not Detected Historical Provider HEALTH MAINTENANCE Final Result from Last 3 Months or Most Recently Relevant to Health Maintenance Insurance [facility] C3 HSN FULL Care Teams University Administrator Relationship Specialty Start Date End Date Keely Townsend MD [address] [place] [phone] PCP - General Family Medicine 11/15/19
--- OUTSIDE RECORDS SUMMARY | 2024-09-03 10:29 | XMS_ITS | Encounter Summary ---
Author Organization [facility] Address [address] [place] [address] Care Team Providers Care Casework Manager Name Role Phone Keely Townsend MD Primary Care Provider + Encounter Details Date Type Department Care Team (Latest Contact Info) Description 07/20/2020 Abstract [facility] Dental, Provider, DDS Social History Tobacco Use Types Packs/Day Years Used Date Smoking Tobacco: Never Assessed Comments Unknown Sex and Gender Information Value [...] Description 11/07/2024 11:30 AM EDT Office Visit [facility] [address] [place] [address] Keely Townsend MD [address] [place] [address] documented as of this encounter Visit Diagnoses Not on filedocumented in this encounter Care Teams Casework Manager Relationship Specialty Start Date End Date Keely Townsend MD [address], [place] [phone] PCP - General Family Medicine 11/15/19 documented as of this encounter
--- OUTSIDE RECORDS SUMMARY | 2024-09-03 10:29 | XMS_ITS | Encounter Summary ---
Author Organization [employer] Address [address] [place] [address] Care Team Providers Care Mechanic Welder Name Role Phone Keely Townsend MD Primary Care Provider + Reason for Visit * Reason Comments Annual Exam Encounter Details Date Type Department Care Team ([facility] st Contact Info) Description 08/09/2024 10:00 AM EST Office Visit [facility] MED[facility]INE [address], [place] [phone] Keely Townsend MD [address] [place], [place] [phone] Visit for preventive health examination (Primary Dx); Mild intermittent asthma without complication; Vitamin D deficiency; Hypercholesterolemia; Psychophysiological insomnia; Gastroesophageal reflux disease without esophagitis; Hypokalemia; Class 1 obesity due to excess calories with serious comorbidity and body mass index (BMI) of 32.0 to 32.9 in adult; Dietary counseling; Exercise counseling Social History Tobacco Use Types Packs/Day Years Used Date Smoking Tobacco: Never Passive Smoke Exposure: Never Smokeless Tobacco: Never Tobacco Cessation:Counseling Given: Not Answered Alcohol Use Standard Drinks/Week Comments Never 0 (1 standard drink = 0.6 oz pur e alcohol) Housing Stability Answer Date Recorded What is your housing situation today? I have ash sing 08/02/[address] you li [...] AM EDT documented as of this encounter Last Filed Vital Signs Vital Sign Reading [...] Mass Index 32.03 08/09/2024 9:23 AM EST documented in this encounter Progress Notes * Keely Townsend MD - 08/09/2024 10:00 AM EST SUBJECTIVE: Holly Marcos is a 63 y.o. year old female who presents for routine physical exam. Denies recent illness, injury, or hospitalization. Patient here for PE. -PAP smear: 10/14/21 NIL HPV -Colonoscopy: referred, appt pending for 08/2024 -Mammogram: 04/04/24 -BMD test: 10/04/23 -Ophthalmology: 03/22/2024 -Labs: 07/30/24 show Hypercholesterolemia and hypokalemia. Patient states to have low potassium. She also mentions to experience muscular cramps and spasms onher arm, also sporadically dizziness and palpitations. -Dental visit: 12/30/21 -Adult IZ:Zoster x 2 06/2023; TDAP 2019; Covid x 2 2020; Flu 06/2023 -Safety: She feels safe. -Intimate Partner Violence Screening: No. -In Relationship: No -STI screening: No -Hx STI/concern? No -Not Interested in PrEP -Lives alone -PHQ 09/01: Due. Acute Concerns: Has shoulder and hands pain, she's out of tylenol. Social History Social History Narrative Not on file Patient Active Problem List Diagnosis Acute asthma Acute otitis externa Acute vaginitis Calcaneal spur Chronic pain of right heel Heel pain COVID-19 Dermoid cyst Dysuria Hand pain Hypercholesterolemia Hypertensive disorder IFG (impaired fasting glucose) Influenza-like symptoms Internal hemorrhoids without complication Pruritus Nodule of skin of back Trigger middle finger of right hand Vascular headache Vasomotor rhinitis Visual impairment Headache disorder Visit for preventive health examination Slow transit constipation Intrinsic eczema History of postmenopausal bleeding Vitamin D deficiency Gastroesophageal reflux disease without esophagitis Mild intermittent asthma without complication Skin tag Lichenoid keratosis At high risk for fracture Acquired skin tag Otitis of left ear Sensation of plugged ear on both sides Irritant contact dermatitis due to detergent Otalgia of left ear Psychophysiological insomnia Hypokalemia Class 1 obesity due to excess calories with serious comorbidity and body mass index (BMI) of 32.0 to 32.9 in adult Family History Problem Relation Name Age of Onset Breast cancer Sister 40 Review of Systems Constitutional: Negative for chills, fatigue and fever. HENT: Negative for congestion, ear pain, nosebleeds, rhinorrhea, sinus pressure, sore throat and trouble swallowing. Eyes: Negative for pain and discharge. Respiratory: Negative for cough, chest tightness and shortness of breath. Cardiovascular: Positive for palpitations. Negative for chest pain and leg swelling. Gastrointestinal: Negative for abdominal pain, blood in stool, constipation, diarrhea and nausea. Endocrine: Negative for polydipsia and polyuria. Genitourinary: Negative for dysuria, frequency, genital sores, pelvic pain and vaginal discharge. Musculoskeletal: Positive for arthralgias and myalgias (cramps and spasms). Negative for back pain and neck pain. Skin: Negative for rash. Allergic/Immunologic: Negative for environmental allergies. Neurological: Positive for dizziness. Negative for seizures, weakness, light- headedness and headaches. Hematological: Negative for adenopathy. Psychiatric/Behavioral: Negative for agitation, behavioral problems, self-injury and suicidal ideas. OBJECTIVE: Vitals: 08/09/24 0923 BP: 125/80 Pulse: 89 Resp: 16 Temp: 97.6 ??F (36.4 ??C) SpO2: 98% Physical Exam HENT: Right Ear: Tympanic membrane and ear canal normal. Left Ear: Tympanic membrane and ear canal normal. Mouth/Throat: Mouth: Mucous membranes are moist. Pharynx: No oropharyngeal exudate or posterior oropharyngeal erythema. Eyes: Pupils: Pupils are equal, round, and reactive to light. Cardiovascular: Rate and Rhythm: Regular rhythm. Pulses: Normal pulses. Heart sounds: Normal heart sounds. No murmur heard. Pulmonary: Breath sounds: Normal breath sounds. Abdominal: General: Bowel sounds are normal. Palpations: Abdomen is soft. Tenderness: There is no abdominal tenderness. Musculoskeletal: General: Normal range of motion. Cervical back: Neck supple. Skin: General: Skin is warm. Neurological: General: No focal deficit present. Mental Status: She is alert and oriented to person, place, and time. Psychiatric: Mood and Affect: Mood normal. Behavior: Behavior normal. Patient Health Questionnaire-2 Score: 0 (08/09/2024 3:42 PM) ASSESSMENT/PLAN Problem List Items Addressed This Visit Mild intermittent asthma without complication Seems to be controlled Continue Asmanex daily and Albuterol PRN. She declined the COVID and Influenza immunizations at this time. FU PRN. Visit for preventive health examination - Primary Discussed with patient re increase fresh fruit [...] appointment in dental clinic every six months. Vitamin D deficiency Start Vit D supplements X 6 months. Advice exercise 50 minutes daily. Hypercholesterolemia It is likely that the higher dose of Seroquel is interfering with lipid metabolism. I advised her to lower Seroquel to 50mg and FU with mental health provider. She will start taking Gabapentin at bedtime for insomnia and anxiety. Continue Crestor 20mg and FU lipids in 6 months. Relevant Orders Lipid Panel with Reflex to Direct LDL Psychophysiological insomnia Most likely related to anxiety, start Gabapentin at bedtime. Continue Prazosin and medication for anxiety. FU with mental health team. Gastroesophageal reflux disease without esophagitis Doing well on TUMS PRN It seems to have been related to calcium therapy. Continue TUMS PRN. Relevant Medications calcium carbonate EX (Calcium Antacid Extra Strength) 750 MG chewable tablet Hypokalemia Most likely related to diuretics. Gave her information on potassium rich diet and she will eat at least one of these food items daily. Continue Chlorthalidone and other BP meds. FU BP in 3 months. Relevant Orders Basic Metabolic Panel Class 1 obesity due to excess calories with serious comorbidity and body mass index (BMI) of 32.0 to 32.9 in adult Discussed re weight reduction options including exercise, life style modifications, diet. Recommended to decrease soda and sugary beverage consumption, increase protein intake with meals (at least 1 portion of protein with each meal) to assist with satiety, increase dietary fiber Recommended at least 150 min/week of moderate intensity exercise. Declined a referral to dietitian Relevant Orders Lipid Panel with Reflex to Direct LDL Other Visit Diagnoses Dietary counseling Exercise counseling Follow Up: Current Outpatient Medications on File Prior to Visit Medication Sig Dispense Refill albuterol (Ventolin HFA) 108 (90 Base) MCG/ACT inhaler Inhale 2 puffs every 4 (four) hours if needed for wheezing or shortness of breath. 18 g 3 amLODIPine (Norvasc) 10 MG tablet TAKE 1 TABLET BY MOUTH EVERY MORNING 90 tablet 1 ammonium lactate (Lac-Hydrin) 12 % cream Apply topically if needed for dry skin. 385 g 1 betamethasone valerate (Valisone) 0.1 % cream Apply topically if needed in the morning and at bedtime (dryness). 15 g 0 Blood Pressure kit Take by [facility]. (non-drug; combo) route every day chlorthalidone (Hygroton) 25 MG tablet TAKE 1 TABLET BY MOUTH EVERY MORNING 90 tablet 1 cyclobenzaprine (Flexeril) 10 MG tablet Take 1 tablet (10 mg) by mouth if needed in the morning andat bedtime for muscle spasms. 60 tablet 1 fluticasone (Flonase) 50 MCG/ACT nasal spray INHALE 2 SPRAYS IN EACH NOSTRIL EVERY DAY 48 g 0 ibuprofen 800 MG tablet Take 1 tablet by mouth every 8 (eight) hours. Take 1 tablet by oral route 3times every day with food loratadine (Claritin) 10 MG tablet Take 1 tablet (10 mg) by mouth in the morning. [address] [facility]. Devices (Pulse Oximeter For Finger) [facility] Check your O2 sat every 4 hours. Call the office if < 88 % 1 each 0 Mometasone Furoate (Asmanex HFA) 100 MCG/ACT aerosol 1 puff in the morning and at bedtime. Rinse mouth with water after use to reduce aftertaste and incidence of candidiasis. Do not swallow. 13 g 5 prazosin (Minipress) 2 MG capsule TAKE 1 CAPSULE BY MOUTH AT BEDTIME NEEDED PARA PESADILLAS QUEtiapine (SEROquel) 100 MG tablet TAKE 1 AND 1/2 TABLETS BY MOUTH AT BEDTIME FOR (for mood) rosuvastatin (Crestor) 20 MG tablet TAKE 1 TABLET BY MOUTH EVERY MORNING 90 tablet 1 sertraline (Zoloft) 100 MG tablet Take 150 mg by mouth in the morning. Spacer/Aero-Holding Chambers (AeroChamber Z-Stat Plus) inhaler by Other route. Use with inhaler Stimulant Laxative 8.6-50 MG tablet TAKE 1 TABLET BY MOUTH EVERY MORNING 90 tablet 3 triamcinolone (Kenalog) 0.1 % cream Apply topically if needed in the morning and at bedtime (pain and swelling). 30 g 2 [DISCONTINUED] acetaminophen (Tylenol) 500 MG tablet Take 1 tablet (500 mg) by mouth every 8 (eight) hours if needed for mild pain. 30 tablet 0 [DISCONTINUED] Calcium Antacid Extra Strength 750 MG chewable tablet CHEW 1 TABLET THREE TIMES DAILY IN THE MORNING, AT NOON, AND AT BEDTIME NEEDED FOR INDIGESTION OR HEARTBURN 90 tablet 3 No current facility-administered medications on file prior to visit. I, Jemma Rabago, am serving as a scribe to document services personally performed by Dr. Keely Townsend, based on the patient's response to questions by provider and provider's statements to me. documented in this encounter Miscellaneous Notes * Assessment & Plan Note - Keely Townsend MD - 08/09/2024 3:45 PM EST Associated Problem(s): Class 1 obesity due to excess calories with serious comorbidity and body mass index (BMI) of 32.0 to 32.9 in adult Discussed re weight reduction options including exercise, life style modifications, diet. Recommended to decrease soda and sugary beverage consumption, increase protein intake with meals (at least 1 portion of protein with each meal) to assist with satiety, increase dietary fiber Recommended at least 150 min/week of moderate intensity exercise. Declined a referral to dietitian * Patient Education Note - Keely Townsend MD - 08/09/2024 3:16 PM EST Images from the original note were not included. Patient Education Table of Contents Contenido de potasio de los alimentos (Potassium Content of Foods) To view videos and all your education online visit, [email or web address] or scan this QR code with your smartphone. Access to this content will in one year. Contenido de potasio de los alimentos Potassium Content of Foods El potasio es un mineral que se encuentra en muchos alimentos y bebidas. Puede incidir en el funcionamiento del coraz?n, afectar la presi?n arterial y mantener el equilibrio de los l?quidos y electrolitos en el cuerpo. Es importante no tener demasiado potasio (hiperpotasemia) ni muy poco potasio (hipopotasemia) en el cuerpo, especialmente en la flora. El potasio se encuentra naturalmente en muchos tipos diferentes de alimentos integrales, raheem frutas, verduras, lindsay y productos l?cteos. Los alimentos procesados tienden a tener un contenido m?s bajo de potasio. La cantidad de potasio que necesita diariamente depende de saldaña edad y de las afecciones m?dicas que pudiera tener. Las recomendaciones generales son las siguientes: Mujeres de 19 a?os o m?s: 2600?mg al d?a. Hombres de 19 a?os o m?s: 3400?mg al d?a. Hable con saldaña m?dico o nutricionista sobre la cantidad de potasio que necesita. ?Qu?? alimentos son ricos en potasio? A continuaci?n se muestran ejemplos de alimentos que tienen m?s de 200?mg de potasio por porci?n. Frutas Siren: 1 mediana (130?g) contiene 230?mg de potasio. Banana: 1 mediana (120?g) contiene 420?mg de potasio Lani?n cantalupo, trozos: 1 taza (160?g) contiene 430?mg de potasio. Verduras Papa, asada, sin c?scara: 1 mediana (170?g) contiene 600?mg de potasio. Br?coli, afshan, cocido: ? taza (77.5?g) contiene 230?mg de potasio. Tomate, afshan o cortado en rodajas: 1 taza (152?g) contiene 400?mg de potasio. Granos Cereales, salvado con uvas pasas: 1 taza (59?g) contiene 360?mg de potasio. Granola con almendras: ? taza (82?g) contiene 220?mg de potasio. Lindsay y otras prote?william Hamburguesa de carne molida: 4 onzas (113?g) contiene 240?mg de potasio. Frijoles colorados, hervidos: ? taza (130 g) contiene 350?mg de potasio? Almendras: 1 onza (aproximadamente 22 micah secos o 28?g) contiene 200?mg de potasio. L?cteos Leche de jose d, 1?%: 1 taza (237?ml) contiene 360?mg de potasio. Yogur bajo en grasa de vainilla simple: 3?4 taza (184?g) contiene 220?mg de potasio. Es posible que los productos que se enumeran m?s arriba no constituyan irma lista completa de los alimentos con alto contenido de potasio. Las cantidades reales de potasio pueden ser diferentes seg?n la maduraci?n, la jameel ?til y la preparaci?n de los alimentos. Consulte a un nutricionista para obtener m?s informaci?n. ?Qu?? alimentos tienen un bajo contenido de potasio? A continuaci?n se muestran ejemplos de alimentos que tienen menos de 200?mg de potasio por porci?n. Frutas Ar?ndanos: 1 taza (145 g) contiene 110 mg de potasio. Manzana: 1 mediana (140 g) contiene 145 mg de potasio. Uvas: 1 taza (160 g) contiene 175 mg de potasio. Verduras Repollo, crudo: 1 taza (70 g) contiene 120 mg de potasio. Coliflor, picada, cocida: 1 taza (180?g) contiene 90?mg de potasio. Addison mihaela picada: 1 taza (56?g) contiene 120?mg de potasio. Granos Bagel, simple: jeovanny de 4 pulgadas (10?cm) contiene 100?mg de potasio. Campos de palak integral: 1 rebanada (26?g) contiene 70?mg de potasio.. Arroz vera, cocido: 1 taza (163?g) contiene 50?mg de potasio. Lindsay y otras prote?william At?n, ligero, enlatado en agua: 3 onzas (85?g) contienen 150?mg de potasio. Huevo, frito: 1 savanna (50?g) contiene 60?mg de potasio. Man?: 1 onza (35 micah secos o 28?g) contiene 180?mg de potasio. Tofu: ? taza (252?g) contiene 150?mg de potasio. L?cteos Queso (cheddar, bessy, mozzarella o provolone): 1 onza (28?g) contiene entre 30 y 40?mg de potasio. Es posible que los productos enumerados anteriormente no malachi irma lista completa de los alimentos con bajo contenido de potasio. Las cantidades reales de potasio pueden ser diferentes seg?n la maduraci?n, la jameel ?til y la preparaci?n de los alimentos. Consulte a un nutricionista para obtener m?s informaci?n. Resumen El potasio es un mineral que se encuentra en muchos alimentos y bebidas. Incide en el funcionamiento del coraz?n, afecta la presi?n arterial y mantiene el equilibrio de los l?quidos y electrolitos enel cuerpo. La cantidad de potasio que necesita diariamente depende de saldaña edad y de las afecciones m?dicas que pudiera tener. El m?dico o el nutricionista le recomendar?n la cantidad de potasio que debe ingerir por d?a. Esta informaci?n no tiene raheem fin reemplazar el consejo del m?dico. Aseg?rese de hacerle al m?dicocualquier pregunta que tenga. Document Released: 2013-04-03 Document Updated: 2022-04-18 Document Reviewed: 2022-04-18 Elsevier Patient Education ? 2023 [employer] * Assessment & Plan Note - Jemma Rabago MA - 08/09/2024 1:24 PM EST Associated Problem(s): Hypokalemia Most likely related to diuretics. Gave her information on potassium rich diet and she will eat at least one of these food items daily. Continue Chlorthalidone and other BP meds. FU BP in 3 months. * Assessment & Plan Note - Jemma Rabago MA - 08/09/2024 1:20 PM EST Associated Problem(s): Gastroesophageal reflux disease without esophagitis Doing well on TUMS PRN It seems to have been related to calcium therapy. Continue TUMS PRN. * Assessment & Plan Note - Jemma Rabago MA - 08/09/2024 1:20 PM EST Associated Problem(s): Psychophysiological insomnia Most likely related to anxiety, start Gabapentin at bedtime. Continue Prazosin and medication for anxiety. FU with mental health team. * Assessment & Plan Note - Jemma Rabago MA - 08/09/2024 1:18 PM EST Associated Problem(s): Hypercholesterolemia It is likely that the higher dose of Seroquel is interfering with lipid metabolism. I advised her to lower Seroquel to 50mg and FU with mental health provider. She will start taking Gabapentin at bedtime for insomnia and anxiety. Continue Crestor 20mg and FU lipids in 6 months. * Assessment & Plan Note - Jemma Rabago MA - 08/09/2024 1:12 PM EST Associated Problem(s): Vitamin D deficiency Start Vit D supplements X 6 months. Advice exercise 50 minutes daily. * Assessment & Plan Note - Jemma Rabago MA - 08/09/2024 1:10 PM EST Associated Problem(s): Mild intermittent asthma without complication Seems to be controlled Continue Asmanex daily and Albuterol PRN. She declined the COVID and Influenza immunizations at this time. FU PRN. * Assessment & Plan Note - Jemma Rabago MA - 08/09/2024 11:27 AM EST Associated Problem(s): Visit for preventive health examination Discussed with patient re increase fresh fruit [...] appointment in dental clinic every six months. documented in this encounter Plan of Treatment Upcoming Encounters Date Type Department Care Team ([facility] st Contact Info) Description 11/07/2024 11:30 AM EDT Office Visit [facility] MED[facility]INE [address] [place] [address] Keely Townsend MD [address] [place] [address] Scheduled Orders Name Type Priority Associated Diagnoses Orde r Schedule Lipid Panel with Reflex to Direct LDL Lab Routine Hypercholesterolemia Class 1 obesity due to excess calories with serious comorbidity and body mass index (BMI) of 32.0 to 32.9 in adult Expected: 11/07/2024 (Approximate), Expires: 08/09/2025 Basic Metabolic Panel Lab Routine Hypokalemia Expected: 11/07/2024 (Approximate), Expires: 08/09/2025 documented as of this encounter Goals Goal Patient Goal Type Associated Problems Recent Progress Patient-Stated? Author Blood Pressure < 140/90 Blood Pressure 125/80(2024 9:23 AM EST) Radha Fox Patient will improve adherence to medication regimen, goal <2 missed doses per week General No Radha Akbar documented as of this encounter Visit Diagnoses Diagnosis Visit for preventive health examination- Primary Mild intermittent asthma without complication Vitamin D deficiency Hypercholesterolemia Pure hypercholesterolemia Psychophysiological insomnia Persistent disorder of initiating or maintaining sleep Gastroesophageal reflux disease without esophagitis Esophageal reflux Hypokalemia Hypopotassemia Class 1 obesity due to excess calories with serious comorbidity and body mass index (BMI) of 32.0 to 32.9 in adult Dietary counseling Dietary surveillance and counseling Exercise counseling documented in this encounter Care Teams Mechanic Welder Relationship Specialty Start Date End Date Keely Townsend MD [address] [place] [address] PCP - General Family Medicine 11/15/19 documented as of this encounter
--- OUTSIDE RECORDS SUMMARY | 2024-09-03 10:29 | XMS_ITS | Encounter Summary ---
Author Organization [employer] [facility] Address [address] [place] [address] Care Team Providers Care Feller Hand Name Role Phone Keely Townsend MD Primary Care Provider + Encounter Details Date Type Department Care Team (Latest Contact Info) Description 10/11/2021 Abstract [facility] CONVERSIONS Dental, Provider, DDS Social History Tobacco [...] Description 11/07/2024 11:30 AM EDT Office Visit [facility] MEDICINE [address] [place] [address] Keely Townsend MD [address] [place] [address] documented as of this encounter Visit Diagnoses Not on filedocumented in this encounter Care Teams Feller Hand Relationship Specialty Start Date End Date Keely Townsend MD [address] [place], [place] [phone] PCP - General Family Medicine 11/15/19 documented as of this encounter
[2024-09-03 10:47] VITALS: BMI 31.5
[2024-09-03] MEDS: Lactated Ringers 1,000 ML 100 ML IVCONT (11:02)
[2024-09-03 11:06] VITALS: BMI 31.5
[2024-09-03 11:07] VITALS: BP 126/72; PULSE 88; RESP 18; TEMP 36.8; O2SAT 97
--- NOTE | 2024-09-03 11:08 | MHC.SHP ---
Pre-Procedural Eval Section A - 24 Hr Update-Section A only Date of Service: 09/03/24 Section B - Complete if H&P > 30 days Chief Complaint: Irritable bowel syndrome with constipation Details of Present Illness: aunt with colon cancer Relevant Family History (Specify if Yes): Yes Relevant Social History: None Present Medications: see Short Stay Collaborative assessment Medical History: Significant History (History of depression Asthma HTN (hypertension)) History of Previous Operations: Relevant previous surgery/procedure and date(s) (History of hysteroscopy History of tubal ligation) Allergies: Allergies Allergy/AdvReac Type Severity Reaction Status Date / Time No Known Allergies Allergy Verified 09/03/24 10:50 Review of Systems Sugical H&P ROS: Negative: Constitution, Cardiovascular, Respiratory, Neurological, Psychiatric, Hem-Onc, Allergic/Immunologic, Gastrointestinal, Genitourinary, Musculoskeletal, Integumentary, Endocrine and Eyes/Ears/Nose/Throat Exam Surgical H&P Exam: Normal: HEENT, Normal: Heart, Normal: Lungs, Normal: Extremities, Normal: Abdomen, Normal: Skin and Normal: Neurological Plan Diagnosis/Plan: Unchanged I have reviewed the history and physical and performed a pertinent physical examination on my patient. No changes have occurred unless specified. Time Spent With Patient Time: Total time managing care of this patient today ____ minutes.
--- NOTE | 2024-09-03 13:20 | HO.OPN-COLON ---
Colonoscopy Operative Note Operative Note Date of Service: 09/03/24 Narrative: Operative Information Procedure Description: Colonoscopy Indication: screening Anesthesia: MAC COLONOSCOPY Instrument: Olympus variable stiffness pediatric scope 190L Colonoscopy Monitoring: Vital signs and clinical assessment, continuous EKG monitoring, Pulse oximetry, Carbon Dioxide monitoring and blood pressure monitoring were done throughout the procedure. Colon withdrawal time was 15 minutes. Procedure: The patient was placed in the left lateral decubitis position and pre-procedure medications were administered. After a digital rectal examination of the ano-rectum, the video colonoscope was inserted into the rectum and advanced through the colon to the cecum/TI. The colonoscope was slowly withdrawn in a retrograde panoramic fashion and the colon mucosa was carefully examined including a retroflexed view of the rectum. Findings and interventions are described below. Procedure Difficulty: easy Findings: Terminal Ileum-normal Cecum:normal Ascending Colon: normal Transverse Colon -normal Descending Colon:normal Sigmoid Colon: moderate diverticulosis, x 2 sessile polyps 6-9 mm removed with cold snare Rectum: Retroflexion with small internal hemorrhoids seen, grade I Anorectum - normal Intervention: cold snare Colon preparation: Eastman Bowel Preparation Scale Right colon; 2 Transverse colon: 2 Left colon; 2 (0 = Unprepared colon segment with mucosa not seen due to solid stool that cannot be cleared. 1 = Portion of mucosa of the colon segment seen, but other areas of the colon segment not well seen due to staining, residual stool and/or opaque liquid. 2 = Minor amount of residual staining, small fragments of stool and/or opaque liquid, but mucosa of colon segment seen well. 3 = Entire mucosa of colon segment seen well with no residual staining, small fragments of stool or opaque liquid) Impression and Post Procedure Diagnosis: diverticulosis colon polyps internal hemorrhoids Plan: High fiber diet leaflet Avoid straining at stool, epsom salts and sitz bath, anusol supps or cream Repeat Colonoscopy in 5 years due to polyps or earlier if clinically indicated Above findings were reviewed with the patient and relevant handouts were provided if indicated.
[2024-09-03 13:22] VITALS: BP 102/61; PULSE 79; RESP 18; TEMP 37.2; O2SAT 100
[2024-09-03 13:37] VITALS: BP 125/76; PULSE 72; RESP 16; TEMP 37.2; O2SAT 100
== END 2024-09-03 14:20 | disposition home or self-care (01) ==
PROVIDERS: PCP Internal Medicine; Visit Provider Internal Medicine Gastroenterology
PROC: 0DJD8ZZ Inspection of Lower Intestinal Tract, Via Natural or Artificial Opening Endoscopic (ICD-10-PCS; CPT 45378; principal; 2024-09-03 13:20)
DX: Z12.11 Encounter for screening for malignant neoplasm of colon (principal); D12.5 Benign neoplasm of sigmoid colon; K57.30 Diverticulosis of large intestine without perforation or abscess without bleeding; K64.0 First degree hemorrhoids; I10 Essential (primary) hypertension; E78.5 Hyperlipidemia, unspecified; J45.909 Unspecified asthma, uncomplicated; K21.9 Gastro-esophageal reflux disease without esophagitis; Z90.710 Acquired absence of both cervix and uterus; Z79.899 Other long term (current) drug therapy
CPT/HCPCS: 45385; 88305; J2003; J2704

== ENCOUNTER → 2024-09-03 09:24 | Outpatient (BNV) | payer MEDICAID, SELFPAY | PROVIDERS: PCP Internal Medicine; Visit Provider Internal Medicine Gastroenterology | DX: Z12.11 Encounter for screening for malignant neoplasm of colon (principal); D12.5 Benign neoplasm of sigmoid colon; K57.30 Diverticulosis of large intestine without perforation or abscess without bleeding; K64.0 First degree hemorrhoids | CPT/HCPCS: 45385 ==

== ENCOUNTER 2024-09-30 09:07 | Outpatient (REF) | payer MEDICAID, SELFPAY ==
--- OUTSIDE RECORDS SUMMARY | 2024-09-30 09:45 | XMS_ITS | Encounter Summary ---
Author Organization [employer] Address [address] [facility] 7t [place] [address] Care Team Providers Care Gang Worker Name Role Phone Keely Townsend MD Primary Care Provider + Encounter Details Date Type Department Care Team ([facility] Contact Info) Description 09/03/2024 Orders Only GENERIC EXTERNAL DATA DEPARTMENT Provider, Generic External Data Social History Tobacco Use Types Packs/Day Years Used Date Smoking Tobacco: Never Passive Smoke Exposure: Never Smokeless Tobacco: Never Alcohol Use Standard Drinks/Week Comments Never 0 (1 standard drink = 0.6 oz pur e alcohol) Housing Stability Answer Date Recorded What is your housing situation today? I have [employer] 08/02/[address] you [...] Description 11/07/2024 11:30 AM EDT Office Visit [facility] [address] [place] [address] Keely Townsend MD [address] [place], [place] [phone] documented as of this encounter Goals Goal Patient Goal Type Associated Problems Recent Progress Patient-Stated? Author Blood Pressure < 140/90 Blood Pressure 125/80(2024 9:23 AM EST) No Radha Akbar Patient will improve adherence to medication regimen, goal <2 missed doses per week General No Radha Akbar documented as of this encounter Procedures Procedure Name Priority Date/Time Associated Diagnosis Comments HEMATOXYLIN AND EOSIN STAIN Routine 09/03/2024 1:12 PM EST documented in this encounter Results * Hematoxylin and Eosin Stain (09/03/2024 1:12 PM EST) 09/03/2024 1:12 PM EST 09/03/2024 1:23 PM EST [facility] - 09/04/2024 4:47 PM EST ----- ------- Name: Holly Hicks ? Age/Sex: 63/F ? : 1960 Unit#: [id number] ?? Attend Dr: Linda Hanks MD ?Re09/03/24 ?Status: DEP SDC ? Location: HO.SSS ?Disch: ? ----- ------- SPEC : [id number] ?RECD: 09/03/24-1322 ? STATUS: ??SOUT ? REQ NUM: [id number] ? SANDY: 09/03/24-2 ? SUBM DR: Linda Hanks MD ? ENTERED: ??09/03/24-3740 ?SP TYPE: Surgical ? OTHR DR: Keely Townsend MD ? ORDERED: ??HE Stain/3, Gross Micro L4 ? Diagnosis ?? Colon, sigmoid, polypectomies: ??Tubular adenomata (2); negative for high- grade dysplasia ?? or carcinoma. ?Clinical History IBS ?Microscopic Description Microscopic sections reviewed. ? Material Received ?? Sigmoid polyps ? Gross Description Received in formalin labeled ?sigmoid polyps? are 2 fragments of pink white soft tissue measuring 0.3 and 0.9 cm in greatest dimension which are wrapped in lens paper and entirely submitted for microscopic examination, 2 pieces in cassette [facility] Copies To: ?? Keely Townsend MD ?? [facility] ?? [address] [facility] ?? [place] [address] ?? [phone] ?? Linda Hanks MD ?? [facility] ?? [address] ?? [place] [address] ?? [phone] ----- ------- Signed (signature on file) Will Sotelo MD 09/04/241646 ? ----- ------- ? END OF REPORT ? us Generic External Data Provider LAB BLOOD ORDERAB LES Final Result [facility] [address] [place] [address] [phone] documented in this encounter Visit Diagnoses Not on filedocumented in this encounter Care Teams Gang Worker Relationship Specialty Start Date End Date Keely Townsend MD [address] [place] [phone] PCP - General Family Medicine 11/15/19 documented as of this encounter
--- OUTSIDE RECORDS SUMMARY | 2024-09-30 09:45 | XMS_ITS | Encounter Summary ---
Author Organization [employer] [facility] Address [address] [facility] 7t [place] [address] Care Team Providers Care Messaging Architect Name Role Phone Keely Townsend MD Primary Care Provider + Encounter Details Date Type Department Care Team (Latest Contact Info) Description 08/16/2022 Orders Only [facility] [address] [place] [address] [phone] Keely Townsend MD [address] [place] [address] [phone] Hypercholesterolemia (Primary Dx); Vitamin D deficiency Social [...] Description 11/07/2024 11:30 AM EDT Office Visit [facility] [address] [place] [address] [phone] Keely Townsend MD [address] [place] [phone] documented as of this encounter Procedures Procedure [...] (CHERRY) (03/21/2023 1:30 PM EDT) IDNOW SERIAL# [id number] [facility] COVID-19 TEST Negative Negative [facility] COVID-19 NOTE See Note [facility] Comment: Results are for the identification of SARS-CoV2 RNA. TheSARS-CoV2 RNA is generally detectable in respiratory samplesduring the acute phase of infection. Positive results areindicative of the presence of SARS-CoV-2 RNA; clinicalcorrelation with patient history and other diagnosticinformation is necessary to determine patient infectionstatus. Positive results do not rule out bacterial infectionor co- infection with other viruses.Testing facilities within the [place] and [facility] are required to report all [...] use by authorized laboratories.Testing performed on the Monitor My Meds ID NOW utilizing NAAT. 03/21/2023 1:30 PM EDT 03/21/2023 1:31 PM EDT [facility] Exter nal Provider LAB MOLECULAR DIAGNOSTICS ORDERABLES Final Result [facility] [address] [place] [phone] * Influenza A B2 ID NOW (Monitor My Meds) (03/21/2023 1:30 PM EDT) IDNOW SERIAL# [id number] [facility] Influenza A Negative Negative [facility] Influenza B2 Negative Negative [facility] Influenza A B2 Note See Note [facility] Comment:The Cherry ID NOW In fluenza [...] 1:30 PM EDT 03/21/2023 1:31 PM EDT [facility] Exter nal Provider LAB MICROBIOLOGY - GENERAL ORDERABLES Final Result [facility] [address] [place] [phone] * Gastrointestinal panel (03/21/2023 11:48 AM EDT) Campylobacter Not Detected Not Detect. [facility] Plesiomonas shigelloides Not Detected Not Detect. [facility] Salmonella Not Detected Not Detect. [facility] Vibrio Not Detected Not Detect. [facility] Vibrio cholerae Not Detected Not Detect. [facility] YERSINIA ENTEROCOLITICA Not Detected Not Detect. [facility] Enteroaggregative E. coli (EAEC) Not Detected Not Detect. [facility] Enteropathogenic E. coli (EPEC) Not Detected Not Detect. [facility] Enterotoxigenic E. coli (ETEC) lt/st Not Detected Not Detect. [facility] Shiga-like toxin-producing E. coli (STEC) stx1/stx2 Not Detected Not Detect. [facility] E coli O157 Not applicable Not Detect. [facility] Comment:E. coli containing t he O157 antigen are a subset ofShiga-like toxin- producing E. coli (STEC). Shigella/Enteroinvasive E. coli (EIEC) Not Detected Not Detect. [facility] Cryptosporidium Not Detected Not Detect. [facility] Cyclospora cayetanensis Not Detected Not Detect. [facility] Entamoeba histolytica Not Detected Not Detect. [facility] Giardia lamblia Not Detected Not Detect. [facility] Adenovirus F 40/41 Not Detected Not Detect. [facility] Astrovirus Not Detected Not Detect. [facility] Norovirus GI/GII Not Detected Not Detect. [facility] Rotavirus A Not Detected Not Detect. [facility] Sapovirus Not Detected Not Detect. [facility] Comment: All results must be correlated [...] assay is performed by Multiplexed PCR, utilizing ChorP[employer] Array. 03/21/2023 11:4 8 AM EDT 03/21/2023 12:13 PM EDT [facility] Exter nal Provider LAB MICROBIOLOGY - GENERAL ORDERABLES Final Result [facility] [address] [place] [phone] * CDiff Gene PCR (03/21/2023 11:48 AM EDT) CDiff Gene PCR NEGATIVE Negative [facility] Comment:If C. difficile stro ngly suspected despite one negativetest, a second test may be sent vs. empiric treatment forC. difficile infection. 03/21/2023 11:4 8 AM EDT 03/21/2023 12:13 PM EDT [facility] Exter nal Provider LAB BODY FLUIDS AND STOOLS ORDERABLES Final Result Performing Organization Address [facility] Co de Phone Number [facility] [address] [place] [phone] * Urinalysis w/reflex microscopic (03/21/2023 11:48 AM EDT) Color Urine Yellow [facility] Appearance Urine Cloudy [facility] PH 5.5 5.0 - 9.0 [facility] Glucose Urine UA Negative Negative mg/dL [facility] Urine Blood Negative Negative [facility] Specific [place] - Urine 1.025 1.005 - 1.025 [facility] Urine Protein Trace Neg-Trace mg/dL [facility] Urine Ketones Negative Negative mg/dL [facility] Nitrite Urine Negative Negative [facility] Leukocyte Esterase Urine Negative Negative [facility] 03/21/2023 11:4 8 AM EDT 03/21/2023 12:13 PM EDT Narrative [facility] - 03/21/2023 12:19 PM EDT Urine, Clean Catch [facility] External Provider LAB URI NE ORDERABLES Final Result Performing Organization Address [facility] Co de Phone Number [facility] [address] [place] [phone] * Lipase (03/21/2023 11:02 AM EDT) Lipase 29 8 - 78 U/L [facility] 03/21/2023 11:0 2 AM EDT 03/21/2023 11:10 AM EDT Generic External Data Provider LAB BLOOD ORDERAB LES Final Result Performing Organization Address [facility] Co de Phone Number [facility] [address] [place] [phone] * Basic Metabolic Panel (03/21/2023 11:02 AM EDT) Sodium 142 135 - 145 mmol/L [facility] Potassium 3.5 3.3 - 5.1 mmol/L [facility] Chloride 108 96 - 108 mmol/L [facility] Carbon Dioxide 22 22 - 29 mmol/L [facility] Anion Gap 16 12 - 20 [facility] Urea Nitrogen (BUN) 11 9 - 16 mg/dL [facility] Creatinine, Serum 0.78 0.5 - 1.4 mg/dL [facility] Creatinine Clr Calc Pharmacy 75.6 [facility] Comment:Provided height and weight: 157.48 cm,83.007 kg.eGFR (calculated from the MDRD study equation) and eCrCl(calculated from the Cockcroft-Gault equation) are based ondifferent parameters and may not yield comparable results.If eCrCl result is absurd, please check patient'sheight/weight. Estimated Glomerular Filt Rate >60 [facility] Comment:NOTE: For -Am erican individuals, multiply the result by 1.210.Chronic Kidney Disease: Estimated GFR < 60 mL/min/[id number] Kidney Disease: Estimated GFR < 15 mL/min/1.73m2 Glucose 109 60 - 115 mg/dL [facility] Calcium 10.0 8.4 - 10.2 mg/dL [facility] 03/21/2023 11:0 2 AM EDT 03/21/2023 11:10 AM EDT us Generic External Data Provider LAB BLOOD ORDERAB LES Final Result [facility] [address] [place] [phone] * (ABNORMAL) Hepatic Function Panel (03/21/2023 11:02 AM EDT) Bilirubin, Total 0.8 0.0 - 1.0 mg/dL [facility] Bilirubin, Direct 0.3 0.0 - 0.5 mg/dL [facility] Aspartate Amino Transferase 24 5 - 31 U/L [facility] Alanine Aminotransferase 22 0 - 31 U/L [facility] Total Protein 8.4(H) 6.5 - 8.0 g/dL [facility] Albumin Level 4.5 3.5 - 5.0 g/dL [facility] Alkaline Phosphatase 86 39 - 117 U/L [facility] 03/21/2023 11:0 2 AM EDT 03/21/2023 11:10 AM EDT us [facility] External Provider LAB BLO OD ORDERABLES Final Result [facility] [address] [place] [phone] * CBC auto differential (03/21/2023 11:02 AM EDT) White Blood Count 8.6 4.8 - 10.8 X10*3/uL [facility] Red Blood Count 4.76 4.20 - 5.50 X10*6/uL [facility] Hemoglobin 14.7 12.0 - 16.0 g/dl [facility] Hematocrit 44.3 37.0 - 47.0 % [facility] Mean Corpuscular Volume 93.1 80.0 - 98.0 fL [facility] Mean Corpuscular Hemoglobin 30.9 27.0 - 33.0 pg [facility] Mean Corpuscular HGB Conc 33.2 31.0 - 35.0 g/dl [facility] Red Cell Distribution Width 13.0 11.0 - 16.0 % [facility] Platelet Count 296 160 - 400 X10*3/uL [facility] Mean Platelet Volume 10.2 9.4 - 12.3 fL [facility] Neutrophils Percent Auto 55.5 45 - 73 % [facility] Imm Gran Pct Auto 0.2 0.0 - 0.4 % [facility] Lymphocytes Percent Auto 30.0 20 - 40 % [facility] Monocytes Percent Auto 10.0 2 - 11 % [facility] Eosinophils Percent Auto 3.8 0 - 4 % [facility] Basophils Percent Auto 0.5 0 - 2 % [facility] NRBC Pct Auto 0.0 0.0 - 0.2 /100WBC [facility] Neutrophils Absolute Auto 4.8 2.0 - 8.3 x10*3/uL [facility] Imm Gran Abs Auto 0.02 0.00 - 0.03 X10*3/uL [facility] Lymphocytes Absolute Auto 2.6 1.2 - 4.9 X10*3/uL [facility] Monocytes Absolute Auto 0.9 0.1 - 1.2 X10*3/uL [facility] Eosinophils Absolute Auto 0.3 0.0 - 0.4 X10*3/uL [facility] Basophils Absolute Auto 0.0 0.0 - 0.2 X10*3/uL [facility] NRBC Abs Auto 0.000 0.0 - 0.012 X10*3/uL [facility] 03/21/2023 11:0 2 AM EDT 03/21/2023 11:10 AM EDT us [facility] External Provider LAB BLO OD ORDERABLES Final Result [facility] [address] [place] [phone] * Lipid Panel, Standard (02/28/2023 8:17 AM EDT) Triglycerides 157 mg/dL [facility] Comment:Desirable Triglyceri de: less than 150 mg/dLBorderline High Triglyceride 150-199 mg/dLHigh Triglyceride: 200-499 mg/dLVery High Triglyceride: greater than or equal to 5OO mg/dL Cholesterol 186 mg/dL [facility] Comment:Desirable Cholestero l: less than 200 mg/dLBorderline High Cholesterol: 200-239 mg/dLHigh Cholesterol: greater than 239 mg/dL LDL Cholesterol Calculated 110 mg/dl [facility] Comment:Desirable LDL: less than 100 mg/dLNear Optimal/Above Optimal LDL: 110- 129 mg/dLBorderline High LDL: 130-159 mg/dLHigh LDL: 160-189 mg/dLVery High LDL: greater than or equal to 190 mg/dL HDL Cholesterol 45 mg/dL [facility] Comment:Desirable HDL: great er than 40 mg/dL Note: This HDL assay may give artificially low results in patients with liver disease. 02/28/2023 8:17 AM EDT 02/28/2023 11:24 AM EDT us Keely Townsend MD LAB BLOOD ORDERABLES Fin al Result [facility] [address] [place] [phone] * Hematoxylin and Eosin Stain (11/09/2022 11:12 AM EDT) 11/09/2022 11:1 2 AM EDT 11/09/2022 1:45 PM EDT Jazmyne [facility] - 11/10/2022 2:32 PM EDT ----- ------- Name: Holly Hicks ? Age/Sex: 61/F ? : 1960 Unit#: [id number] ?? Attend Dr: Dre Abebe MD ?Re11/09/22 ?Status: DEP REF ? Location: HO.LNP ?Disch: ? ----- ------- SPEC : [id number] ? RECD: 11/09/22 ? STATUS: ??SOUT ? REQ NUM: [id number] ? SANDY: 11/09/221112 ? SUBM DR: Dre Abebe MD ? ENTERED: ??11/09/221969 ?SP TYPE: Surgical ? OTHR DR: Keely [...] To: ?? Keely Townsend MD ?? [address] [facility] ?? [place] ? Dre Abebe MD ?? [address] [facility] [address] [facility] ?? [place] ?? [phone] ----- ------- Signed (signature on file) Peggy Beckman 11/10/22 1432 ? ----- ------- ? END OF REPORT ? us [facility] External Provider LAB BLO OD ORDERABLES Final Result [facility] [address] [place] [phone] documented in this encounter Visit Diagnoses Diagnosis Hypercholesterolemia- Primary Pure hypercholesterolemia Vitamin D deficiency documented in this encounter Care Teams Messaging Architect Relationship Specialty Start Date End Date Keely Townsend MD [address] [place] [phone] PCP - General Family Medicine 11/15/19 documented as of this encounter
--- OUTSIDE RECORDS SUMMARY | 2024-09-30 09:45 | XMS_ITS | Encounter Summary ---
Author Organization [employer] Address [address] [facility] [address] [facility] [address] [address] [place] [address] Care Team Providers Care Chucking Machine Set Up Operator Name Role Phone Keely Townsend MD Primary Care Provider + Encounter Details Date Type Department Care Team (Late st Contact Info) Description 09/04/2024 Orders Only [facility] [address] [place], [place] [phone] Provider, MD Genevieve Social History Tobacco Use Types Packs/Day Years [...] 11:30 AM EDT Office Visit [facility] [address] [place] [address] Keely Townsend MD [address] [place] [phone] documented as of this encounter Goals Goal Patient Goal Type Associated Problems Recent Progress Patient-Stated? Author Blood Pressure < 140/90 Blood Pressure 125/80(2024 9:23 AM EST) No Radha Akbar Patient will improve adherence to medication regimen, goal <2 missed doses per week General No Radha Akbar documented as of this encounter Procedures Procedure Name Priority Date/Time Associated Diagnosis Comments HM COLONOSCOPY Routine 09/03/2024 1:25 PM EST documented in this encounter Results * Hm Colonoscopy (09/03/2024 1:25 PM EST) Historical Provider HEALTH MAINTENANCE Final Result documented in this encounter Visit Diagnoses Not on filedocumented in this encounter Care Teams Chucking Machine Set Up Operator Relationship Specialty Start Date End Date Keely Townsend MD [address] [place] [address] PCP - General Family Medicine 11/15/19 documented as of this encounter
--- OUTSIDE RECORDS SUMMARY | 2024-09-30 09:45 | XMS_ITS | Clinical Summary ---
Author Organization [employer] Address [address] [facility] 7t [place] [address] Care Team Providers Care Cuprous Chloride Operator Name Role Phone Keely Townsend MD Primary Care Provider + Allergies No known active allergies Medications ibuprofen 800 MG tablet Take 1 tablet by mouth every 8 (eight) hours. Take 1 tablet by oral route 3 times every day with food 10/28/19 22 Active Blood Pressure kit Take by misc. (non-drug; combo) route every day Active Spacer/Aero-Hold [...] spasms. 60 tablet 1 08/09/19 24 Active Misc. Devices (Pulse Oximeter For Finger) miscIndications: COVID-19 Check your O2 sat every 4 hours. Call the office if < 88 % 1 each 12/11/19 24 Active triamcinolone (Kenalog) 0.1 % creamIndications [...] 90 capsule 3 08/09/19 25 026 Active calcium carbonate EX (Calcium Antacid Extra Strength) 750 MG chewable tabletIndication s:Gastroesophage al reflux disease without esophagitis Chew 1 tablet (750 mg) 2 times daily. 90 tablet 3 08/09/19 25 026 Active chlorthalidone (Hygroton) 25 MG tabletIndication s:Primary hypertension TAKE 1 TABLET EVERY MORNING 90 tablet 1 09/24/19 25 Active rosuvastatin (Crestor) 20 MG tabletIndication s:Hypercholester olemia TAKE 1 TABLET EVERY MORNING 90 tablet 1 09/24/19 25 Active amLODIPine (Norvasc) 10 MG tabletIndication s:Primary hypertension TAKE 1 TABLET BY MOUTH EVERY MORNING 90 tablet 1 09/24/19 25 Active amLODIPine (Norvasc) 10 MG tabletIndication s:Primary hypertension Take 1 tablet (10 mg) by mouth in the morning. 90 tablet 1 09/24/19 25 Active ammonium lactate (Lac-Hydrin) 12 % creamIndications :Lichenoid keratosis Apply topically if needed for dry skin. 385 g 1 09/18/19 24 025 amLODIPine (Norvasc) 10 MG tabletIndication s:Primary hypertension TAKE 1 TABLET BY MOUTH EVERY MORNING 90 tablet 1 03/20/20 24 025 Discontinued rosuvastatin (Crestor) 20 MG tabletIndication s:Hypercholester olemia TAKE 1 TABLET BY MOUTH EVERY MORNING 90 tablet 1 04/23/20 24 025 Discontinued chlorthalidone (Hygroton) 25 MG tabletIndication s:Primary hypertension TAKE 1 TABLET BY MOUTH EVERY MORNING 90 tablet 1 04/23/20 24 025 Discontinued ergocalciferol (Vitamin D2) 1.25 MG (32804 UT) capsule Take 1 capsule (1.25 mg) by mouth 1 (one) time per week. 12 capsule 1 08/09/19 025 Active Problems Problem Noted Date Diagnosed [...] resolved. Recent endometrial biopsy wnl FU with LINE PALLETIZER PRN Vitamin D deficiency 12/06/2022 Assessment & [...] AM EDT): BP is at goal. Continue [id number] mg + amlodipine 10 mg and FU [...] Encounters Date Type Department Care Team Description 09/30/[address] [address] Cherie Sheets, RAZ Results 09/23/[address] [address] Keely Townsend MD Primary hypertension 09/22/[address] [address] Keely Townsend MD Primary hypertension; Hypercholesterolemia 09/04/2024 Orders Only [address] [address] ProviderGenevieve MD 09/03/2024 Orders Only GENERIC EXTERNAL DATA DEPARTMENT Provider, Generic External Data 08/23/[address] [address] Keely Townsend MD October08/09/2024 10:00 AM EST Office Visit [address] [address] Keely Townsend MD Visit for preventive health examination (Primary Dx); Mild intermittent asthma without complication; Vitamin D deficiency; Hypercholesterolemia ; Psychophysiological insomnia; Gastroesophageal reflux disease without esophagitis; Hypokalemia; Class 1 obesity due to excess calories with serious comorbidity and body mass index (BMI) of 32.0 to 32.9 in adult; Dietary counseling; Exercise counseling 08/09/2024 Travel 08/08/[address] [address] July Najera [place] Chart prep 08/05/2024 Patient Outreach [address] [address] Keely Townsend MD Care Coordination (CHW outreach for SDOH PT-1 and food needs-referral completed /) 08/02/2024 Patient Outreach [facility] [address] [place], [place] [phone] Keely Townsend MD Pre-visit Planning (SDOH positive, Tobacco screening negative.) 07/30/[address] [address] Keely Townsend MD Returning call 07/30/2024 Orders Only [facility] [address] [place] [address] Keely Townsend MD Hypokalemia (Primary Dx) 07/30/2024 Telephone [facility] [address] [place] [address] Keely Townsend MD CRITICAL RESULT from Last 3 Months Immunizations Name Administration [...] 11/07/2024 11:30 AM EDT Office Visit [facility] [address] [place] [address] Keely Townsend MD [address] [place] [address] Health Maintenance Due Date Last Done Comments CT Colonography 1961 FIT DNA/Cologuard 1960 FIT 1960 FOBT 1960 HIV Screening 1960 Sigmoidoscopy 1960 Alcohol/Substance Use Screening 1973 Pneumococcal Vaccine: 50+ Years (1 of 2 - PCV) 1980 RSV Patients and Patients Aged 60 years or older (1 - Risk 60-74 years 1-dose series) 2021 COVID-19 Vaccine (3 - 2023- season) 2024 12/29/2020, 12/01/2020 Mammogram 04/04/2025 04/04/2024, 0901/2023, 03/23/2022, Additional history exists SDOH Screening 08/02/2025 08/02/2024 Depression Screening 08/09/2025 08/09/2024, 08/09/19 25 Tobacco Screening 08/09/2025 08/09/2024 Cervical Cancer Screening 10/14/2026 HPV/Cotest 10/14/2026 10/14/2021, 09/03/2019 Pap Smear 10/14/2026 10/14/2021 Lipid Panel 07/30/2029 07/30/2024, 080 02/2023, 08/09/2022, Additional history exists DTaP/Tdap/Td Vaccines (2 - Td or Tdap) 08/06/2029 08/06/2019 Colonoscopy 09/03/2029 09/03/2024 Colorectal Cancer Screening 09/03/2029 Hepatitis C Screening Completed 08/09/2022 Zoster Vaccines [...] Procedure Name Priority Date/Time Associated Diagnosis Comments COLONOSCOPY Routine 09/03/2024 1:25 PM EST HEMATOXYLIN AND EOSIN STAIN Routine 09/03/2024 1:12 PM EST MAGNESIUM Routine 08/05/2024 8:00 AM EST Hypokalemia [...] Recently Relevant to Health Maintenance Results * Colonoscopy (09/03/2024 1:25 PM EST) us Historical Provider HEALTH MAINTENANCE Final Result * Hematoxylin and Eosin Stain (09/03/2024 1:12 PM EST) 09/03/2024 1:12 PM EST 09/03/2024 1:23 PM EST Narrative [facility] - 09/04/2024 4:47 PM EST ----- ------- Name: Holly Hicks ? Age/Sex: 63/F ? : 1960 Unit#: [id number] ?? Attend Dr: Linda Hanks MD ?Re09/03/24 ?Status: DEP SDC ? Location: HO.SSS ?Disch: ? ----- ------- SPEC : [id number] ?RECD: 09/03/24 ? STATUS: ??SOUT ? REQ NUM: [id number] ? SANDY: 09/03/24-1311 ? SUBM DR: Linda Hanks MD ? ENTERED: ??09/03/24-694 ?SP TYPE: Surgical ? OTHR DR: Keely [...] microscopic examination, 2 pieces in cassette [facility]. [facility] Copies To: ?? Keely Townsend MD ?? [facility] ?? [address] ?? [place] [address] ?? [phone] ?? Linda Hanks MD ?? [facility] ?? [address] ?? [place] [address] ?? [phone] ----- ------- Signed (signature on file) Will Sotelo MD 09/04/24 1214 ? ----- ------- ? END OF REPORT ? Generic External Data Provider LAB BLOOD ORDERAB LES Final Result Performing Organization Address [facility] Phone Number [facility] [address] [place] [phone] * Potassium (08/05/2024 8:00 AM EST) Pathologist [facility] Potassium 3.3 3.3 - 5.1 mmol/L [facility] Blood Venous blood specimen / Unknown 08/05/2024 8:00 AM EST 08/05/2024 10:59 AM EST Keely Townsend MD LAB BLOOD ORDERABLES Fin al Result Performing Organization Address [facility] Phone Number [facility] [address] [place] [phone] * Magnesium (08/05/2024 8:00 AM EST) Pathologist [facility] Magnesium 1.8 1.6 - 2.6 mg/dL [facility] Blood Venous blood specimen / Unknown 08/05/2024 8:00 AM EST 08/05/2024 10:59 AM EST Keely Townsend MD LAB BLOOD ORDERABLES Fin al Result Performing Organization Address [facility] Phone Number [facility] [address] [place] [phone] * (ABNORMAL) Vitamin D, 25-Hydroxy, Total, Immunoassay (07/30/2024 8:13 AM EST) Vitamin D 25-OH Total 25.5(L) >30 ng/mL [facility] Comment:Health Based Referen ce Values*< 20 ng/mL Tslnqhdlo16-25 ng/mL Insufficient> 30 ng/mL Sufficient*Darling [place]. N [...] MD LAB BLOOD ORDERABLES Fin al Result [facility] [address] [place] [phone] * (ABNORMAL) Lipid Panel with Reflex to Direct LDL (07/30/2024 8:13 AM EST) Triglycerides 212(H) <150 mg/dL [facility] Comment:Desirable Triglyceri de: less than 150 mg/dLBorderline High Triglyceride 150-199 mg/dLHigh Triglyceride: 200-499 mg/dLVery High Triglyceride: greater than or equal to 5OO mg/dL Cholesterol 300(H) <200 mg/dL [facility] Comment:Desirable Cholestero l: less than 200 mg/dLBorderline High Cholesterol: 200-239 mg/dLHigh Cholesterol: greater than 239 mg/dL LDL Cholesterol Calculated 213(H) <100 mg/dL [facility] Comment:Desirable LDL: less than 100 mg/dLNear Optimal/Above Optimal LDL: 110- 129 mg/dLBorderline High LDL: 130-159 mg/dLHigh LDL: 160-189 mg/dLVery High LDL: greater than or equal to 190 mg/dL HDL Cholesterol 45 >40 mg/dL [facility] Comment:Desirable HDL: great er than 40 mg/dL Note: This HDL assay may give artificially low results in patients with liver disease. Blood 07/30/2024 8:13 AM EST 07/30/2024 11:15 AM EST us Keely Townsend MD LAB BLOOD ORDERABLES Fin al Result [facility] [address] [place] [phone] * (ABNORMAL) Basic Metabolic Panel (07/30/2024 8:13 AM EST) Sodium 142 135 - 145 mmol/L [facility] Potassium 2.9(LL) 3.3 - 5.1 mmol/L [facility] Comment:Critical value for K : Results called to and read back by:GHISLAINE Blair Person calling: AMY Date: 07/30/24 Time: 1236 Chloride 102 96 - 108 mmol/L [facility] Carbon Dioxide 29 22 - 29 mmol/L [facility] Anion Gap 14 12 - 20 [facility] Urea Nitrogen (BUN) 15 9 - 16 mg/dL [facility] Creatinine, Serum 0.81 0.5 - 1.4 mg/dL [facility] Estimated Glomerular Filt Rate >60 [facility] Comment:Chronic Kidney Disea se: Estimated GFR < 60 mL/min/1.12u1Znrdwv Kidney Disease: Estimated GFR < 15 mL/min/1.73m2 Glucose 106 60 - 115 mg/dL [facility] Calcium 9.9 8.4 - 10.2 mg/dL [facility] Blood Venous blood specimen / Unknown 07/30/2024 8:13 AM EST 07/30/2024 11:15 AM EST Keely Townsend MD LAB BLOOD ORDERABLES Fin al Result [facility] [address] [place] [phone] * BI Mammogram Screening Tomosynthesis Bilateral (04/04/2024 10:45 AM EDT) Anatomical Region Laterality Modality Breast Bilateral Mammography 04/04/2024 10:4 5 AM EDT Narrative 04/17/2024 7:50 PM EDT ? [facility] ? [address] ?[place] [address] ? Mammography Report ? Signed ? Patient: West Hemant,Holly ?M ?? R#: [id number] ? : 1960 ?Acct:[id number] ? Age/Sex: 63 / F ?ADM Date: 04/04/24 ? Loc: HO.MAMMO ? Attending Dr: Keely Townsend MD ? Ordering Physician: Keely Townsend MD ?Results: 1Ne ?? gative ? Date of Service: 04/04/24 ?Follow Up: 1 Year From Orig ?? inal Mammogram ? Procedure(s): MM tomosynthesis screening BI ?? Accession Number(s): [id number] ? cc: Keely Townsend MD ? EXAMINATION: [...] by Kirti Mancera, DO in OV> ? 04/17/241946 ? DD/ 1045 ? TD/TT: 04/04/24 1101 ? Elementary School Band Director: ? Procedure Note Tayler, Image - 04/17/2024 [place] [facility] [address] [place] [address] Mammography Report Signed Patient: Coral Hicks R#: [id number] : 2Acct:[id number] Age/Sex: 63 / FADM Date: 04/04/24 Loc: HO.MAMMO Attending Dr: Keely Townsend MD Ordering Physician: Keely Townsend MDResults: 1Ne gative Date of Service: 04/04/24Follow Up: 1 Year From Orig inal Mammogram Procedure(s): MM tomosynthesis screening BI Accession Number(s): [id number] cc: Keely Townsend MD EXAMINATION: MM SCREENING [...] OV> 04/17/241946 DD/ 1045 TD/TT: 04/04/24 1101 [employer] Band Director: Keely Townsend MD IMG BI PROCEDURES Edited Result - Final * (ABNORMAL) Hepatitis Panel, General (08/09/2022 8:16 AM EST) Hepatitis A Antibody Total REACTIVE( A) NON-REACT Copyright Agent [employer] Comment: For additional information, please refer to http://OnetoOnetext.DeNA/faq/QDL795 (This link is being provided for informational/ educational purposes only.) Hepatitis B Surface Antibody QL NON-REACT ZOYA NON-REACT ZOYA [employer] Hepatitis B Surface Ag NON-REACT ZOYA NON-REACT ZOYA [employer] Hepatitis B Core Antibody Total NON-REACT ZOYA NON-REACT ZOYA [employer] Hepatitis C Antibody NON-REACT ZOYA NON-REACT ZOYA [employer] Index <0.02 <1.00 [employer] Comment: HCV antibody was non-reactive. There is no laboratory evidence of HCV infection. In most cases, no further action is required. However, if recent HCV exposure is suspected, a test for HCV RNA (test code 35916) is suggested. For additional information please refer to http://OnetoOnetext.DeNA/faq/LNZ31c3 (This link is being provided for informational/ educational purposes only.) 08/09/2022 8:16 AM EST 08/09/2022 8:16 AM EST Narrative [facility] - 08/13/2022 10:02 PM EST FASTING:YES FASTING: YES us Keely Townsend MD LAB BLOOD ORDERABLES Fin al Result [facility] [address] [place] [phone] [employer] [facility] [address], ([address]) [place] [address] * HM PAP/HPV (10/14/2021) Pap Smear 1. NILM 1. NILM HPV Not Detected Undetected, Indeterminat e, Quantitative , Not Detected us Historical Provider HEALTH MAINTENANCE Final Result from Last 3 Months or Most Recently Relevant to Health Maintenance Insurance [facility] C3 HSN FULL Care Teams Cuprous Chloride Operator Relationship Specialty Start Date End Date Keely Townsend MD [address] [place] [phone] PCP - General Family Medicine 11/15/19
--- OUTSIDE RECORDS SUMMARY | 2024-09-30 09:45 | XMS_ITS | Encounter Summary ---
Author Organization [employer] Address [address] [facility] 7t [place] [address] Care Team Providers Care Senior Executive Assistant Name Role Phone Keely Townsend MD Primary Care Provider + Reason for Visit * Reason Comments Med Refill Encounter Details Date Type Department Care Team ([facility] st Contact Info) Description 09/22/2024 Refill [facility] [address] [place], [place] [phone] Keely Townsend MD [address] [place], [place] [phone] Primary hypertension; Hypercholesterolemia Social History Tobacco Use Types Packs/Day Years [...] Description 11/07/2024 11:30 AM EDT Office Visit [facility] [address] [place] [address] Keely Townsend MD [address] [place] [address] documented as of this encounter Goals Goal Patient Goal Type Associated Problems Recent Progress Patient-Stated? Author Blood Pressure < 140/90 Blood Pressure 125/80(2024 9:23 AM EST) No Radha Akbar Patient will improve adherence to medication regimen, goal <2 missed doses per week General No Radha Akbar documented as of this encounter Visit Diagnoses Diagnosis Primary hypertension Unspecified essential hypertension Hypercholesterolemia Pure hypercholesterolemia documented in this encounter Care Teams Senior Executive Assistant Relationship Specialty Start Date End Date Keely Townsend MD [address] [place] [address] PCP - General Family Medicine 11/15/19 documented as of this encounter
--- OUTSIDE RECORDS SUMMARY | 2024-09-30 09:46 | XMS_ITS | Encounter Summary ---
Author Organization [employer] Address [address] [facility] 7t [place] [address] Care Team Providers Care Robotics Software Engineer Name Role Phone Keely Townsend MD Primary Care Provider + Encounter Details Date Type Department Care Team (Late st Contact Info) Description 09/23/2024 Refill [facility] [address] [place], [place] [phone] Keely Townsend MD [address] [place], [place] [phone] Primary hypertension Social History Tobacco Use Types Packs/Day Years [...] 11:30 AM EDT Office Visit [facility] [address] [place], [place] [phone] Keely Townsend MD [address] [place], [place] [phone] documented as of this encounter Goals Goal Patient Goal Type Associated Problems Recent Progress Patient-Stated? Author Blood Pressure < 140/90 Blood Pressure 125/80(2024 9:23 AM EST) No Radha Akbar Patient will improve adherence to medication regimen, goal <2 missed doses per week General No Radha Akbar documented as of this encounter Visit Diagnoses Diagnosis Primary hypertension Unspecified essential hypertension documented in this encounter Care Teams Robotics Software Engineer Relationship Specialty Start Date End Date Keely Townsend MD [address] [place], [place] [phone] PCP - General Family Medicine 11/15/19 documented as of this encounter
--- OUTSIDE RECORDS SUMMARY | 2024-09-30 09:46 | XMS_ITS | Encounter Summary ---
Author Organization [employer] [facility] Address [address] [facility] 7t [place] [address] Care Team Providers Care Senior Training And Development Rep Name Role Phone Keely Townsend MD Primary Care Provider + Encounter Details Date Type Department Care Team (Latest Contact Info) Description 10/11/2021 Abstract [facility] CONVERSIONS Dental, Provider, DDS Social History [...] 11/07/2024 11:30 AM EDT Office Visit [facility] [address] [place] [address] Keely Townsend MD [address] [place] [address] documented as of this encounter Visit Diagnoses Not on filedocumented in this encounter Care Teams Senior Training And Development Rep Relationship Specialty Start Date End Date Keely Townsend MD [address] [place], [place] [phone] PCP - General Family Medicine 11/15/19 documented as of this encounter
--- OUTSIDE RECORDS SUMMARY | 2024-09-30 09:46 | XMS_ITS | Encounter Summary ---
Author Organization [employer] [facility] Address [address] [facility] 7t [place] [address] Care Team Providers Care Core Maker Helper Name Role Phone Keely Townsend MD Primary Care Provider + Encounter Details Date Type Department Care Team (Latest Contact Info) Description 07/20/2020 Abstract [facility] CONVERSIONS Dental, Provider, DDS Social History [...] Description 11/07/2024 11:30 AM EDT Office Visit [facility] [address] [place] [address] Keely Townsend MD [address] [place] [address] documented as of this encounter Visit Diagnoses Not on filedocumented in this encounter Care Teams Core Maker Helper Relationship Specialty Start Date End Date Keely Townsend MD [address] [place], [place] [phone] PCP - General Family Medicine 11/15/19 documented as of this encounter
--- OUTSIDE RECORDS SUMMARY | 2024-09-30 09:46 | XMS_ITS | Encounter Summary ---
Author Organization [employer] Address [address] [place] [address] Care Team Providers Care Senior Materials Planner Name Role Phone Keely Townsend MD Primary Care Provider + Reason for Visit * Reason Onset Date Comments Results 09/30/2024 Encounter Details Date Type Department Care Team ([facility] Contact Info) Description 09/30/2024 Telephone [facility] [address] [place], [place] [phone] Cherie Sheets, RAZ Results Social History Tobacco Use Types Packs/Day Years [...] encounter Miscellaneous Notes * Telephone Encounter - Cherie Sheets RN - 09/30/2024 9:02 AM EDT [employer] order for patient for work. Patient notified. documented in this encounter Plan of Treatment Upcoming Encounters Date Type Department Care Team (Late st Contact Info) Description 11/07/2024 11:30 AM EDT Office Visit [facility] [address] [place] [address] Keely Townsend MD [address] [place] [address] Scheduled Orders Name Type Priority Associated Diagnoses Orde r Schedule T-SPOT??.TB Lab Routine Screening for tuberculosis Expected: 09/30/2024 (Approximate), Expires: 09/30/2025 documented as of this encounter Goals Goal Patient Goal Type Associated Problems Recent Progress Patient-Stated? Author Blood Pressure < 140/90 Blood Pressure 125/80(2024 9:23 AM EST) No Radha Akbar Patient will improve adherence to medication regimen, goal <2 missed doses per week General No Radha Akbar documented as of this encounter Visit Diagnoses Diagnosis Screening for tuberculosis Screening examination for pulmonary tuberculosis documented in this encounter Care Teams Senior Materials Planner Relationship Specialty Start Date End Date Keely Townsend MD [address] [place] [address] PCP - General Family Medicine 11/15/19 documented as of this encounter
[2024-10-02 23:54] LABS: TS Negative Control Passed; TS Panel A 0; TS Panel B 0; TS Positive Control Passed; TSpotTB Negative (Negative)
== END 2024-09-30 09:08 | disposition home or self-care (01) ==
LOC: HO.HHCL 09:07
PROVIDERS: Visit Provider Internal Medicine
DX: Z11.1 Encounter for screening for respiratory tuberculosis (principal)
CPT/HCPCS: 36415; 86481

== ENCOUNTER 2024-10-31 08:33 | Outpatient (REF) | payer MEDICAID, SELFPAY ==
--- OUTSIDE RECORDS SUMMARY | 2024-10-31 08:50 | XMS_ITS | Encounter Summary ---
Author Organization [employer] [facility] Address [address] [facility] 7t [place] [address] Care Team Providers Care Revenue Director Name Role Phone Keely Townsend MD Primary Care Provider + Encounter Details Date Type Department Care Team (Latest Contact Info) Description 07/20/2020 Abstract [facility] CONVERSIONS Dental, Provider, DDS Social History Tobacco [...] Description 11/07/2024 11:30 AM EDT Office Visit [facility] MED[facility] [address] [place] [address] Keely Townsend MD [address] [place] [address] documented as of this encounter Visit Diagnoses Not on filedocumented in this encounter Care Teams Revenue Director Relationship Specialty Start Date End Date Keely Townsend MD [address] [place], [place] [phone] PCP - General Family Medicine 11/15/19 documented as of this encounter
--- OUTSIDE RECORDS SUMMARY | 2024-10-31 08:50 | XMS_ITS | Encounter Summary ---
Author Organization [facility] Address [address] [place] [address] Care Team Providers Care Weaver [employer]oom Name Role Phone Keely Townsend MD Primary Care Provider + Encounter Details Date Type Department Care Team (Latest Contact Info) Description 08/16/2022 Orders Only [facility] [address] [place] [address] [phone] Keely Townsend MD [address] [place] [address] [phone] Hypercholesterolemia (Primary Dx); Vitamin D deficiency Social [...] 11:30 AM EDT Office Visit [facility] [address] [place] [address] [phone] Keely Townsend MD [address] [place] [phone] documented as of this encounter Procedures Procedure [...] (CHERRY) (03/21/2023 1:30 PM EDT) IDNOW SERIAL# [id number] [facility] COVID-19 TEST Negative Negative [facility] COVID-19 NOTE See Note [facility] Comment: Results are for the identification of SARS-CoV2 RNA. TheSARS-CoV2 RNA is generally detectable in respiratory samplesduring the acute phase of infection. Positive results areindicative of the presence of SARS-CoV-2 RNA; clinicalcorrelation with patient history and other diagnosticinformation is necessary to determine patient infectionstatus. Positive results do not rule out bacterial infectionor co- infection with other viruses.Testing facilities within the [place] and [facility] are required to report all [...] use by authorized laboratories.Testing performed on the Shared Performance ID NOW utilizing NAAT. 03/21/2023 1:30 PM EDT 03/21/2023 1:31 PM EDT [facility] Exter nal Provider LAB MOLECULAR DIAGNOSTICS ORDERABLES Final Result [facility] [address] [place] [phone] * Influenza A B2 ID NOW (Shared Performance) (03/21/2023 1:30 PM EDT) IDNOW SERIAL# [id number] [facility] Influenza A Negative Negative [facility] Influenza B2 Negative Negative [facility] Influenza A B2 Note See Note [facility] Comment:The Cherry ID NOW In fluenza [...] 1:30 PM EDT 03/21/2023 1:31 PM EDT [facility] Exter nal Provider LAB MICROBIOLOGY - GENERAL ORDERABLES Final Result [facility] [address] [place] [phone] * Gastrointestinal panel (03/21/2023 11:48 AM EDT) Campylobacter Not Detected Not Detect. [facility] Plesiomonas shigelloides Not Detected Not Detect. [facility] Salmonella Not Detected Not Detect. [facility] Vibrio Not Detected Not Detect. [facility] Vibrio cholerae Not Detected Not Detect. [facility] YERSINIA ENTEROCOLITICA Not Detected Not Detect. [facility] Enteroaggregative E. coli (EAEC) Not Detected Not Detect. [facility] Enteropathogenic E. coli (EPEC) Not Detected Not Detect. [facility] Enterotoxigenic E. coli (ETEC) lt/st Not Detected Not Detect. [facility] Shiga-like toxin-producing E. coli (STEC) stx1/stx2 Not Detected Not Detect. [facility] E coli O157 Not applicable Not Detect. [facility] Comment:E. coli containing t he O157 antigen are a subset ofShiga-like toxin- producing E. coli (STEC). Shigella/Enteroinvasive E. coli (EIEC) Not Detected Not Detect. [facility] Cryptosporidium Not Detected Not Detect. [facility] Cyclospora cayetanensis Not Detected Not Detect. [facility] Entamoeba histolytica Not Detected Not Detect. [facility] Giardia lamblia Not Detected Not Detect. [facility] Adenovirus F 40/41 Not Detected Not Detect. [facility] Astrovirus Not Detected Not Detect. [facility] Norovirus GI/GII Not Detected Not Detect. [facility] Rotavirus A Not Detected Not Detect. [facility] Sapovirus Not Detected Not Detect. [facility] Comment: All results must be correlated [...] assay is performed by Multiplexed PCR, utilizing [employer]. 03/21/2023 11:4 8 AM EDT 03/21/2023 12:13 PM EDT [facility] Exter nal Provider LAB MICROBIOLOGY - GENERAL ORDERABLES Final Result [facility] [address] [place] [phone] * CDiff Gene PCR (03/21/2023 11:48 AM EDT) CDiff Gene PCR NEGATIVE Negative [facility] Comment:If C. difficile stro ngly suspected despite one negativetest, a second test may be sent vs. empiric treatment forC. difficile infection. 03/21/2023 11:4 8 AM EDT 03/21/2023 12:13 PM EDT [facility] Exter nal Provider LAB BODY FLUIDS AND STOOLS ORDERABLES Final Result Performing Organization Address [facility] Co de Phone Number [facility] [address] [place] [phone] * Urinalysis w/reflex microscopic (03/21/2023 11:48 AM EDT) Color Urine Yellow [facility] Appearance Urine Cloudy [facility] PH 5.5 5.0 - 9.0 [facility] Glucose Urine UA Negative Negative mg/dL [facility] Urine Blood Negative Negative [facility] Specific [place] - Urine 1.025 1.005 - 1.025 [facility] Urine Protein Trace Neg-Trace mg/dL [facility] Urine Ketones Negative Negative mg/dL [facility] Nitrite Urine Negative Negative [facility] Leukocyte Esterase Urine Negative Negative [facility] 03/21/2023 11:4 8 AM EDT 03/21/2023 12:13 PM EDT Narrative [facility] - 03/21/2023 12:19 PM EDT Urine, Clean Catch [facility] External Provider LAB URI NE ORDERABLES Final Result Performing Organization Address [facility] Co de Phone Number [facility] [address] [place] [phone] * Lipase (03/21/2023 11:02 AM EDT) Lipase 29 8 - 78 U/L [facility] 03/21/2023 11:0 2 AM EDT 03/21/2023 11:10 AM EDT Generic External Data Provider LAB BLOOD ORDERAB LES Final Result Performing Organization Address [facility] Co de Phone Number [facility] [address] [place] [phone] * Basic Metabolic Panel (03/21/2023 11:02 AM EDT) Sodium 142 135 - 145 mmol/L [facility] Potassium 3.5 3.3 - 5.1 mmol/L [facility] Chloride 108 96 - 108 mmol/L [facility] Carbon Dioxide 22 22 - 29 mmol/L [facility] Anion Gap 16 12 - 20 [facility] Urea Nitrogen (BUN) 11 9 - 16 mg/dL [facility] Creatinine, Serum 0.78 0.5 - 1.4 mg/dL [facility] Creatinine Clr Calc Pharmacy 75.6 [facility] Comment:Provided height and weight: 157.48 cm,83.007 kg.eGFR (calculated from the MDRD study equation) and eCrCl(calculated from the Cockcroft-Gault equation) are based ondifferent parameters and may not yield comparable results.If eCrCl result is absurd, please check patient'sheight/weight. Estimated Glomerular Filt Rate >60 [facility] Comment:NOTE: For -Am erican individuals, multiply the result by 1.210.Chronic Kidney Disease: Estimated GFR < 60 mL/min/[id number] Kidney Disease: Estimated GFR < 15 mL/min/1.73m2 Glucose 109 60 - 115 mg/dL [facility] Calcium 10.0 8.4 - 10.2 mg/dL [facility] 03/21/2023 11:0 2 AM EDT 03/21/2023 11:10 AM EDT us Generic External Data Provider LAB BLOOD ORDERAB LES Final Result [facility] [address] [place] [phone] * (ABNORMAL) Hepatic Function Panel (03/21/2023 11:02 AM EDT) Bilirubin, Total 0.8 0.0 - 1.0 mg/dL [facility] Bilirubin, Direct 0.3 0.0 - 0.5 mg/dL [facility] Aspartate Amino Transferase 24 5 - 31 U/L [facility] Alanine Aminotransferase 22 0 - 31 U/L [facility] Total Protein 8.4(H) 6.5 - 8.0 g/dL [facility] Albumin Level 4.5 3.5 - 5.0 g/dL [facility] Alkaline Phosphatase 86 39 - 117 U/L [facility] 03/21/2023 11:0 2 AM EDT 03/21/2023 11:10 AM EDT us [facility] External Provider LAB BLO OD ORDERABLES Final Result [facility] [address] [place] [phone] * CBC auto differential (03/21/2023 11:02 AM EDT) White Blood Count 8.6 4.8 - 10.8 X10*3/uL [facility] Red Blood Count 4.76 4.20 - 5.50 X10*6/uL [facility] Hemoglobin 14.7 12.0 - 16.0 g/dl [facility] Hematocrit 44.3 37.0 - 47.0 % [facility] Mean Corpuscular Volume 93.1 80.0 - 98.0 fL [facility] Mean Corpuscular Hemoglobin 30.9 27.0 - 33.0 pg [facility] Mean Corpuscular HGB Conc 33.2 31.0 - 35.0 g/dl [facility] Red Cell Distribution Width 13.0 11.0 - 16.0 % [facility] Platelet Count 296 160 - 400 X10*3/uL [facility] Mean Platelet Volume 10.2 9.4 - 12.3 fL [facility] Neutrophils Percent Auto 55.5 45 - 73 % [facility] Imm Gran Pct Auto 0.2 0.0 - 0.4 % [facility] Lymphocytes Percent Auto 30.0 20 - 40 % [facility] Monocytes Percent Auto 10.0 2 - 11 % [facility] Eosinophils Percent Auto 3.8 0 - 4 % [facility] Basophils Percent Auto 0.5 0 - 2 % [facility] NRBC Pct Auto 0.0 0.0 - 0.2 /100WBC [facility] Neutrophils Absolute Auto 4.8 2.0 - 8.3 x10*3/uL [facility] Imm Gran Abs Auto 0.02 0.00 - 0.03 X10*3/uL [facility] Lymphocytes Absolute Auto 2.6 1.2 - 4.9 X10*3/uL [facility] Monocytes Absolute Auto 0.9 0.1 - 1.2 X10*3/uL [facility] Eosinophils Absolute Auto 0.3 0.0 - 0.4 X10*3/uL [facility] Basophils Absolute Auto 0.0 0.0 - 0.2 X10*3/uL [facility] NRBC Abs Auto 0.000 0.0 - 0.012 X10*3/uL [facility] 03/21/2023 11:0 2 AM EDT 03/21/2023 11:10 AM EDT us [facility] External Provider LAB BLO OD ORDERABLES Final Result [facility] [address] [place] [phone] * Lipid Panel, Standard (02/28/2023 8:17 AM EDT) Triglycerides 157 mg/dL [facility] Comment:Desirable Triglyceri de: less than 150 mg/dLBorderline High Triglyceride 150-199 mg/dLHigh Triglyceride: 200-499 mg/dLVery High Triglyceride: greater than or equal to 5OO mg/dL Cholesterol 186 mg/dL [facility] Comment:Desirable Cholestero l: less than 200 mg/dLBorderline High Cholesterol: 200-239 mg/dLHigh Cholesterol: greater than 239 mg/dL LDL Cholesterol Calculated 110 mg/dl [facility] Comment:Desirable LDL: less than 100 mg/dLNear Optimal/Above Optimal LDL: 110- 129 mg/dLBorderline High LDL: 130-159 mg/dLHigh LDL: 160-189 mg/dLVery High LDL: greater than or equal to 190 mg/dL HDL Cholesterol 45 mg/dL [facility] Comment:Desirable HDL: great er than 40 mg/dL Note: This HDL assay may give artificially low results in patients with liver disease. 02/28/2023 8:17 AM EDT 02/28/2023 11:24 AM EDT us Keely Townsend MD LAB BLOOD ORDERABLES Fin al Result [facility] [address] [place] [phone] * Hematoxylin and Eosin Stain (11/09/2022 11:12 AM EDT) 11/09/2022 11:1 2 AM EDT 11/09/2022 1:45 PM EDT Jazmyne [facility] - 11/10/2022 2:32 PM EDT ----- ------- Name: Holly Hicks ? Age/Sex: 61/F ? : 1960 Unit#: [id number] ?? Attend Dr: Dre Abebe MD ?Re11/09/22 ?Status: DEP REF ? Location: HO.LNP ?Disch: ? ----- ------- SPEC : [id number] ? RECD: 11/09/22 ? STATUS: ??SOUT ? REQ NUM: [id number] ? SANDY: 11/09/221112 ? SUBM DR: Dre Abebe MD ? ENTERED: ??11/09/222172 ?SP TYPE: Surgical ? OTHR DR: Keely [...] To: ?? Keely Townsend MD ?? [address] [facility] ?? [place] ? Dre Abebe MD ?? [address] [facility] [address] [facility] ?? [place] ?? [phone] ----- ------- Signed (signature on file) Peggy Beckman 11/10/22 1432 ? ----- ------- ? END OF REPORT ? us [facility] External Provider LAB BLO OD ORDERABLES Final Result [facility] [address] [place] [phone] documented in this encounter Visit Diagnoses Diagnosis Hypercholesterolemia- Primary Pure hypercholesterolemia Vitamin D deficiency documented in this encounter Care Teams [employer] Relationship Specialty Start Date End Date Keely Townsend MD [address] [place] [phone] PCP - General Family Medicine 11/15/19 documented as of this encounter
--- OUTSIDE RECORDS SUMMARY | 2024-10-31 08:50 | XMS_ITS | Clinical Summary ---
Author Organization [employer] Address [address] [facility] 7t [place] [address] Care Team Providers Care Chief Science Officer Name Role Phone Keely Townsend MD Primary Care Provider + Allergies No known active allergies Medications ibuprofen 800 MG tablet Take 1 tablet by mouth every 8 (eight) hours. Take 1 tablet by oral route 3 times every day with food 2 Active Blood Pressure kit Take by misc. (non-drug; combo) route every day Active Spacer/Aero-Hold ing Chambers (AeroChamber Z-Stat Plus) inhaler by Other route. Use with inhaler Active prazosin (Minipress) 2 MG capsule TAKE 1 CAPSULE BY MOUTH AT BEDTIME NEEDED PARA PESADILLAS 3 Active QUEtiapine (SEROquel) 100 MG tablet TAKE 1 AND 1/2 TABLETS BY MOUTH AT BEDTIME FOR (for mood) 3 Active sertraline (Zoloft) 100 MG tablet Take 150 mg by mouth in the morning. 3 Active loratadine (Claritin) 10 MG tablet Take 1 tablet (10 mg) by mouth in the morning. 90 tablet 1 3 Active Stimulant Laxative 8.6-50 MG tabletIndication s:Slow transit constipation TAKE 1 TABLET BY MOUTH EVERY MORNING 90 tablet 3 3 Active cyclobenzaprine (Flexeril) 10 MG tabletIndication s:Trigger middle finger of right hand Take 1 tablet (10 mg) by mouth if needed in the morning and at bedtime for muscle spasms. 60 tablet 1 4 Active Misc. Devices (Pulse Oximeter For Finger) miscIndications: COVID-19 Check your O2 sat every 4 hours. Call the office if < 88 % 1 each 4 Active triamcinolone (Kenalog) 0.1 % creamIndications :Irritant contact dermatitis due to detergent Apply topically if needed in the morning and at bedtime (pain and swelling). 30 g 2 4 Active betamethasone valerate (Valisone) 0.1 % creamIndications :Lichenoid keratosis Apply topically if needed in the morning and at bedtime (dryness). 15 g 4 Active albuterol (Ventolin HFA) 108 (90 Base) MCG/ACT inhaler Inhale 2 puffs every 4 (four) hours if needed for wheezing or shortness of breath. 18 g 3 4 025 Active fluticasone (Flonase) 50 MCG/ACT nasal spray INHALE 2 SPRAYS IN EACH NOSTRIL EVERY DAY 48 g 4 Active gabapentin (Neurontin) 100 MG capsule Take 1 capsule (100 mg) by mouth at bedtime. 90 capsule 3 5 026 Active calcium carbonate EX (Calcium Antacid Extra Strength) 750 MG chewable tabletIndication s:Gastroesophage al reflux disease without esophagitis Chew 1 tablet (750 mg) 2 times daily. 90 tablet 3 5 026 Active chlorthalidone (Hygroton) 25 MG tabletIndication s:Primary hypertension TAKE 1 TABLET EVERY MORNING 90 tablet 1 5 Active rosuvastatin (Crestor) 20 MG tabletIndication s:Hypercholester olemia TAKE 1 TABLET EVERY MORNING 90 tablet 1 5 Active amLODIPine (Norvasc) 10 MG tabletIndication s:Primary hypertension TAKE 1 TABLET BY MOUTH EVERY MORNING 90 tablet 1 5 Active amLODIPine (Norvasc) 10 MG tabletIndication s:Primary hypertension Take 1 tablet (10 mg) by mouth in the morning. 90 tablet 1 5 Active fluticasone furoate (Arnuity Ellipta) 100 MCG/ACT inhaler Inhale 1 puff Once per day. Rinse mouth with water after use to reduce aftertaste and incidence of candidiasis. Do not swallow. 1 each 5 026 Active acetaminophen (Tylenol Extra Strength) 500 MG tablet Take 1 tablet (500 mg) by mouth every 8 (eight) hours if needed for headaches. 90 tablet 5 025 Active Mometasone Furoate (Asmanex HFA) 100 MCG/ACT aerosolIndicatio ns:Mild intermittent asthma without complication 1 puff in the morning and at bedtime. Rinse mouth with water after use to reduce aftertaste and incidence of candidiasis. Do not swallow. 13 g 5 4 025 Discontin ued(Thera py completed ) Active Problems Problem Noted Date Diagnosed Date [...] resolved. Recent endometrial biopsy wnl FU with STORE CLERK PRN Vitamin D deficiency 12/06/2022 Assessment & [...] AM EDT): BP is at goal. Continue [id number] mg + amlodipine 10 mg and FU [...] Encounters Date Type Department Care Team Description 10/08/2024 8:40 AM EDT Office Visit [facility] [address] [place] [phone] Name, MD Andres Cough in adult patient (Primary Dx); Nonintractable headache, unspecified chronicity pattern, unspecified headache type; Mild intermittent asthma without complication 10/04/2024 Population Health Risk Score [facility] ([facility]) Department [address] [place] [address] [phone] Provider, Population Health Generic 09/30/2024 Orders Only [facility] [address] [place] [phone] Keely Townsend MD 09/30/[address] [address] Cherie Sheets RN Results 09/23/2024 Refill [facility] [address] [place] [phone] Keely Townsend MD Primary hypertension 09/22/2024 Refill [facility] [address] [place] [phone] Keely Townsend MD Primary hypertension; Hypercholesterolemi a 09/04/2024 Orders Only [facility] [address] [place] [phone] ProviderGenevieve MD 09/03/2024 Orders Only GENERIC EXTERNAL DATA DEPARTMENT Provider, Generic External Data 08/23/[address] [address] Keely Townsend MD October08/09/2024 10:00 AM EST Office Visit [address] [address] Keely Townsend MD Visit for preventive health examination (Primary Dx); Mild intermittent asthma without complication; Vitamin D deficiency; Hypercholesterolemi a; Psychophysiological insomnia; Gastroesophageal reflux disease without esophagitis; Hypokalemia; Class 1 obesity due to excess calories with serious comorbidity and body mass index (BMI) of 32.0 to 32.9 in adult; Dietary counseling; Exercise counseling 08/09/2024 Travel 08/08/[address] [phone] July Najera [place] Chart prep 08/05/2024 Patient Outreach [address] [phone] Keely Townsend MD Care Coordination (CH[facility] outreach for SDOH PT-1 and food needs-referral completed /) 08/02/2024 Patient Outreach [facility] [address] [place] [address] Keely Townsend MD Pre-visit Planning (SDOH positive, Tobacco screening negative.) from Last 3 Months Immunizations Name Administration [...] Sign Reading Time Taken Comments Blood Pressure 136/83 10/08/2024 8:51 AM EDT Pulse 90 10/08/2024 8:51 AM EDT Temperature 36.8 ??C (98.2 ??F) 10/08/2024 8:51 AM ED T Respiratory Rate 18 10/08/2024 8:51 AM EDT Oxygen Saturation 99% 10/08/2024 8:51 AM EDT Inhaled Oxygen Concentration - - Weight 81.6 kg (180 lb) 10/08/2024 8:51 AM EDT Height 157.5 cm (5' 2 ) 08/09/2024 9:23 AM EST Body Mass Index 32.92 08/09/2024 9:23 AM EST Plan of Treatment Upcoming Encounters Date Type Department Care Team (Late st Contact Info) Description 11/07/2024 11:30 AM EDT Office Visit [facility] [address] [place], [place] [phone] Keely Townsend MD [address] [place] [address] Health Maintenance Due Date Last Done Comments CT Colonography 1961 FIT DNA/Cologuard 1961 FIT 1960 FOBT 1960 HIV Screening 1960 Sigmoidoscopy 1961 Alcohol/Substance Use Screening 1973 Pneumococcal Vaccine: 50+ Years (1 of 2 - PCV) 1980 RSV Patients and Patients Aged 60 years or older (1 - Risk 60-74 years 1-dose series) 2021 COVID-19 Vaccine ( season) 2024 12/29/2020, 12/01/2020 Mammogram 04/04/2025 04/04/2024, 09/0 01/2023, 03/23/2022, Additional history exists SDOH Screening 08/02/2025 08/02/2024 Depression Screening 08/09/2025 08/09/2024, 08/09/19 25 Tobacco Screening 10/08/2025 10/08/2024 Cervical Cancer Screening 10/14/2026 HPV/Cotest 10/14/2026 10/14/2021, [...] Author Blood Pressure < 140/90 Blood Pressure 136/83(2024 8:51 AM EDT) No Radha Akbar Patient will improve adherence to medication regimen, goal <2 missed doses per week General No Radha Akbar Procedures Procedure Name Priority Date/Time Associated Diagnosis Comments POCT INFLUENZA A (ID NOW RAPID MOLECULAR) Routine 10/08/2024 9:02 AM EDT Cough in adult patient POCT INFLUENZA B (ID NOW RAPID MOLECULAR) Routine 10/08/2024 9:01 AM EDT Cough in adult patient POCT RAPID COVID ANTIGEN Routine 10/08/2024 8:55 AM EDT Cough in adult patient T-SPOT(R).TB Routine 09/30/2024 9:14 AM EDT HM COLONOSCOPY Routine 09/03/2024 1:25 PM EST HEMATOXYLIN AND EOSIN STAIN Routine 09/03/2024 1:12 PM EST MAGNESIUM Routine 08/05/2024 8:00 AM EST Hypokalemia POTASSIUM Routine 08/05/2024 8:00 AM EST Hypokalemia LIPID PANEL WITH REFLEX TO DIRECT LDL Routine 07/30/2024 8:13 AM EST Primary hypertension BI MAMMOGRAM SCREENING TOMOSYNTHESIS BILATERAL Routine 04/04/2024 10:45 AM EDT HEPATITIS PANEL, GENERAL Routine 08/09/2022 8:16 AM EST Visit for preventive health examination HM PAP/HPV Routine 10/14/2021 from Last 3 Months or Most Recently Relevant to Health Maintenance Results * Influenza A (ID NOW Rapid Molecular) (10/08/2024 9:02 AM EDT) Influenza A Negative Negative, Indeterminate [facility] Swab 10/08/2024 9:02 AM EDT us Andres Washburn MD POINT OF CARE TEST ENTER/EDIT OR DERABLES Final Result [facility] [address] [place] [phone] * Influenza B (ID NOW Rapid Molecular) (10/08/2024 9:01 AM EDT) Influenza B Negative Negative, Indeterminate [facility] Swab 10/08/2024 9:01 AM EDT us Andres Washburn MD POINT OF CARE TEST ENTER/EDIT OR DERABLES Final Result [facility] [address] [place] [address] [phone] * POCT Rapid COVID Ag (10/08/2024 8:55 AM EDT) Pathologist [facility] Rapid COVID Ag Negative Swab 10/08/2024 8:55 AM EDT us Andres Washburn MD POINT OF CARE TEST ENTER/EDIT OR DERABLES Final Result * T-SPOT??.TB (09/30/2024 9:14 AM EDT) Pathologist [facility] T Spot TB Negative Negative [facility] Comment:A negative test resu lt does not exclude the possibilityof exposure to or infection with Mycobacteriumtuberculosis (M. tuberculosis). Patients with recentexposure to TB infected individuals exhibiting anegative T-SPOT.TB result should be considered forretesting within 6 weeks or if other relevant clinicalsymptoms indicate. Results from T-SPOT.TB testing mustbe used in conjunction with each individual'sepidemiological history, current medical status,and results of other diagnostic evaluations.The T-SPOT.TB test is qualitative and results arereported as positive, borderline, or negative, giventhat the test controls perform as expected. In linewith the Centers for Disease Control and Prevention's2010 recommendation to report quantitative measurementsalongside the qualitative result, the laboratoryprovides spot counts for informational purposes only.The T-SPOT.TB test should not be interpreted as aquantitative test. TS PANEL A 0 [facility] TS PANEL B 0 [facility] Negative Control Passed [facility] Positive Control Passed [facility] Comment:For additional infor kaye, please refer tohttp://education.zlien/faq/ZKX298(This link is being provided for informational/educational purposes only.)THIS TEST WAS PERFORMED AT:[id number] [place] [address]ANAGEERBARB COOPER MD,PHD 09/30/2024 9:14 AM EDT 09/30/2024 11:19 AM EDT us Keely Townsend MD LAB BLOOD ORDERABLES Fin al Result [facility] [address] [place] [phone] [phone] * Hm Colonoscopy (09/03/2024 1:25 PM EST) us Historical Provider HEALTH MAINTENANCE Final Result * Hematoxylin and Eosin Stain (09/03/2024 1:12 PM EST) 09/03/2024 1:12 PM EST 09/03/2024 1:23 PM EST Narrative [facility] - 09/04/2024 4:47 PM EST ----- ------- Name: Holly Hicks ? Age/Sex: 63/F ? : 1960 Unit#: [id number] ?? Attend Dr: Linda Hanks MD ?Re09/03/24 ?Status: DEP SDC ? Location: HO.SSS ?Disch: ? ----- ------- SPEC : [id number] ?RECD: 09/03/24-1322 ? STATUS: ??SOUT ? REQ NUM: [id number] ? SANDY: 09/03/24-2 ? SUBM DR: Linda Hanks MD ? ENTERED: ??09/03/24- ?SP TYPE: Surgical ? OTHR DR: Keely [...] microscopic examination, 2 pieces in cassette [facility] Copies To: ?? Keely Townsend MD ?? [facility] ?? [address] [facility] ?? [place] [address] ?? [phone] ?? Linda Hanks MD ?? [facility] ?? [address] ?? [place] ?? [phone] ----- ------- Signed (signature on file) Will Sotelo MD 09/04/241646 ? ----- ------- ? END OF REPORT ? us Generic External Data Provider LAB BLOOD ORDERAB LES Final Result [facility] [address] [place] [address] [phone] * Potassium (08/05/2024 8:00 AM EST) Potassium 3.3 3.3 - 5.1 mmol/L [facility] Blood Venous blood specimen / Unknown 08/05/2024 8:00 AM EST 08/05/2024 10:59 AM EST us Keely Townsend MD LAB BLOOD ORDERABLES Fin al Result Performing Organization Address City/[facility]/ZIP Co de Phone Number [facility] [address] [place] [phone] * Magnesium (08/05/2024 8:00 AM EST) Magnesium 1.8 1.6 - 2.6 mg/dL [facility] Blood Venous blood specimen / Unknown 08/05/2024 8:00 AM EST 08/05/2024 10:59 AM EST Keely Townsend MD LAB BLOOD ORDERABLES Fin al Result Performing Organization Address [facility] Co de Phone Number [facility] [address] [place] [phone] * (ABNORMAL) Lipid Panel with Reflex to Direct LDL (07/30/2024 8:13 AM EST) Triglycerides 212(H) <150 mg/dL [facility] Comment:Desirable Triglyceri de: less than 150 mg/dLBorderline High Triglyceride 150-199 mg/dLHigh Triglyceride: 200-499 mg/dLVery High Triglyceride: greater than or equal to 5OO mg/dL Cholesterol 300(H) <200 mg/dL [facility] Comment:Desirable Cholestero l: less than 200 mg/dLBorderline High Cholesterol: 200-239 mg/dLHigh Cholesterol: greater than 239 mg/dL LDL Cholesterol Calculated 213(H) <100 mg/dL [facility] Comment:Desirable LDL: less than 100 mg/dLNear Optimal/Above Optimal LDL: 110- 129 mg/dLBorderline High LDL: 130-159 mg/dLHigh LDL: 160-189 mg/dLVery High LDL: greater than or equal to 190 mg/dL HDL Cholesterol 45 >40 mg/dL [facility] Comment:Desirable HDL: great er than 40 mg/dL Note: This HDL assay may give artificially low results in patients with liver disease. Blood 07/30/2024 8:13 AM EST 07/30/2024 11:15 AM EST us Keely Townsend MD LAB BLOOD ORDERABLES Fin al Result [facility] [address] [place] [address] [phone] * BI Mammogram Screening Tomosynthesis Bilateral (04/04/2024 10:45 AM EDT) Anatomical Region Laterality Modality Breast Bilateral Mammography 04/04/2024 10:4 5 AM EDT Narrative 04/17/2024 7:50 PM EDT ? [facility] ? [address] ?[place] [address] ? Mammography Report ? Signed ? Patient: Holly Hicks ?M ?? R#: [id number] ? : 1960 ?Acct:[id number] ? Age/Sex: 63 / F ?ADM Date: 04/04/24 ? Loc: HO.MAMMO ? Attending Dr: Keely Townsend MD ? Ordering Physician: Keely Townsend MD ?Results: 1Ne ?? gative ? Date of Service: 04/04/24 ?Follow Up: 1 Year From Orig ?? inal Mammogram ? Procedure(s): MM tomosynthesis screening BI ?? Accession Number(s): [id number] ? cc: Keely Townsend MD ? EXAMINATION: [...] ? Signed By: ?<Electronically signed by Kirti Mancera DO in OV> ? 04/17/24 1947 ? DD/ 1045 ? TD/TT: 04/04/24 1101 ? Metal Reed Tuner: ? Procedure Note Taylor Lester - 04/17/2024 [facility] [address] [place] [address] Dr. [place], [place] [address] Mammography Report Signed Patient: Coral Hicks Tamanna#: [id number] : 2Acct:[id number] Age/Sex: 63 / FADM Date: 04/04/24 Loc: HO.MAMMO Attending Dr: Keely Townsend MD Ordering Physician: Keely Townsend MDResults: 1Ne gatzoya Date of Service: 04/04/24Follow Up: 1 Year From [facility] ina Mammogram Procedure(s): MM tomosynthesis screening BI Accession Number(s): [id number] cc: Keely Townsend MD EXAMINATION: MM SCREENING [...] signed by Kirti Mancera DO in OV> 04/17/24 194 DD/ 1045 TD/TT: 04/04/24 1101 Metal Reed Tuner: Keely Townsend MD IMG BI PROCEDURES Edited Result - Final * (ABNORMAL) Hepatitis Panel, General (08/09/2022 8:16 AM EST) Hepatitis A Antibody Total REACTIVE( A) NON-REACT [facility] [employer] [facility] Comment: For additional information, please refer to http://education.[employer]/faq/AJY443 (This link is being provided for informational/ educational purposes only.) Hepatitis B Surface Antibody QL NON-REACT ZOYA NON-REACT ZOYA [employer] [facility] Hepatitis B Surface Ag NON-REACT ZOYA NON-REACT ZOYA [employer] [facility] Hepatitis B Core Antibody Total NON-REACT ZOYA NON-REACT ZOYA [employer] [facility] Hepatitis C Antibody NON-REACT ZOYA NON-REACT ZOYA [employer] [facility] Index <0.02 <1.00 [employer] [facility] Comment: HCV antibody was non-reactive. There is no laboratory evidence of HCV infection. In most cases, no further action is required. However, if recent HCV exposure is suspected, a test for HCV RNA (test code 54387) is suggested. For additional information please refer to http://education.zlien/faq/HGB52y7 (This link is being provided for informational/ educational purposes only.) 08/09/2022 8:16 AM EST 08/09/2022 8:16 AM EST Narrative [facility] - 08/13/2022 10:02 PM EST FASTING:YES FASTING: YES Keely Townsend MD LAB BLOOD ORDERABLES Fin al Result [facility] [address] [place] [address] [employer] [place] [facility] [address] [facility], ([address]) [place] [address] * HM PAP/HPV (10/14/2021) Pap Smear 1. NILM 1. NILM HPV Not Detected Undetected, Indeterminat e, Quantitative , Not Detected Historical Provider HEALTH MAINTENANCE Final Result from Last 3 Months or Most Recently Relevant to Health Maintenance Insurance [facility] C3 HSN FULL Care Teams Chief Science Officer Relationship Specialty Start Date End Date Keely Townsend MD [address] [place] [phone] PCP - General Family Medicine 11/15/19
--- OUTSIDE RECORDS SUMMARY | 2024-10-31 08:50 | XMS_ITS | Encounter Summary ---
Author Organization [employer] Address [address] [facility] [address] [place] [address] Care Team Providers Care Mobility Engineer Name Role Phone Keely Townsend MD Primary Care Provider + Encounter Details Date Type Department Care Team (Late st Contact Info) Description 09/04/2024 Orders Only [facility] [address] [place], [place] [phone] Provider, MD Genevieve Social History Tobacco Use [...] Description 11/07/2024 11:30 AM EDT Office Visit [facility] [address] [place] [address] Keely Townsend MD [address] [place] [address] documented as of this encounter Goals Goal [...] on filedocumented in this encounter Care Teams Mobility Engineer Relationship Specialty Start Date End Date Keely Townsend MD [address] [place] [address] PCP - General Family Medicine 11/15/19 documented as of this encounter
--- OUTSIDE RECORDS SUMMARY | 2024-10-31 08:50 | XMS_ITS | Encounter Summary ---
Author Organization [facility] Address [address] [facility] [address]t [place] [address] Care Team Providers Care Data Migration Lead Name Role Phone Keely Townsend MD Primary Care Provider + Encounter Details Date Type Department Care Team (Latest Contact Info) Description 10/11/2021 Abstract [facility] CONVERSIONS Dental, Provider, DDS Social History Tobacco [...] 11:30 AM EDT Office Visit [facility] MEDICINE [address] [place] [address] Keely Townsend MD [address] [place] [address] documented as of this encounter Visit Diagnoses Not on filedocumented in this encounter Care Teams Data Migration Lead Relationship Specialty Start Date End Date Keely Townsend MD [address] [place], [place] [phone] PCP - General Family Medicine 11/15/19 documented as of this encounter
[2024-10-31 12:00] LABS: Anion Gap 13 (12-20); Blood Urea Nitrogen 16 mg/dL (9-16); Calcium 9.7 mg/dL (8.4-10.2); Carbon Dioxide 29 mmol/L (22-29); Chloride 103 mmol/L (96-108); Cholesterol 259 mg/dL (<200); Estimated Glomerular Filt Rate > 60; Glucose Random 101 mg/dL (60-115); HDL Cholesterol 41 mg/dL (>40); LDL Cholesterol Calculated 177 mg/dL (<100); Potassium 3.6 mmol/L (3.3-5.1); Sodium 141 mmol/L (135-145); Triglycerides 207 mg/dL (<150)
[2024-10-31 13:45] LABS: Reflex LDLD? No
== END 2024-10-31 08:34 | disposition home or self-care (01) ==
LOC: HO.HHCL 08:33
PROVIDERS: Visit Provider Internal Medicine
DX: E78.00 Pure hypercholesterolemia, unspecified (principal); E66.811 Obesity, class 1; E66.09 Other obesity due to excess calories; Z68.32 Body mass index [BMI] 32.0-32.9, adult; E87.6 Hypokalemia
CPT/HCPCS: 36415; 80048; 80061

== ENCOUNTER 2025-01-06 12:02 | Emergency (ER) | payer MEDICAID, SELFPAY ==
--- NOTE | ~2025-01-06 | CT_ITS ---
EXAMINATION: CT HEAD WITHOUT CONTRAST CLINICAL INFORMATION: head injury, pain COMPARISON: None available. TECHNIQUE: Contiguous axial imaging was performed from the skull base to vertex without intravenous administration of contrast. This CT examination was performed using dose optimization techniques as appropriate, variously including the following: *Automated exposure control *Adjustment of mA and/or kV according to patient size (this includes techniques or standardized protocols for targeted exams where dose is matched to indication/reason for exam; i.e. extremities or head) *Use of iterative reconstruction technique DLP: 706.61 mGy-cm FINDINGS: No acute cortical disruption in the bony calvarium or skull base. No acute intracranial hemorrhage, mass effect, midline shift, hydrocephalus or herniation. Crowley-white matter differentiation is normal. Sellar/suprasellar region demonstrated no gross masses. Craniocervical junction demonstrates normal position of the cerebellar tonsils. Posterior cranial fossa contents demonstrated no acute intracranial hemorrhage or mass effect. Calcifications in the putamen bilaterally. No air-fluid levels in the included paranasal sinuses. Tympanic cavities and mastoid cells are aerated. Asymmetric prominent right parotid gland, superficial component Calcified plaques in the cavernous supracavernous segments both ICAs.. CT/CT head/brain wo IV con IMPRESSION: No acute fracture, bony calvarium. No acute intracranial hemorrhage. Electronically signed by: Yifan Sahni MD 01/06/2025 02:15 PM EDT
--- NOTE | ~2025-01-06 | CT_ITS ---
EXAMINATION: CT CERVICAL SPINE WITHOUT CONTRAST CLINICAL INFORMATION: Injury. COMPARISON: None available. TECHNIQUE: Contiguous axial images through the cervical spine using 3 mm collimation with bone and soft tissue algorithm. Sagittal and coronal reformatted images acquired with bone algorithm. DLP: 516.[address] examination was performed using dose optimization techniques as appropriate, variously including the following: *Automated exposure control *Adjustment of mA and/or kV according to patient size (this includes techniques or standardized protocols for targeted exams where dose is matched to indication/reason for exam; i.e. extremities or head) *Use of iterative reconstruction technique FINDINGS: Craniocervical junction is intact with normal alignment between the occipital condyles and the lateral masses of C1. Marginal osteophyte formation and decreased intervertebral disc height at C5-6 and C6-7. Grade 1 anterolisthesis C4-5. Bilateral facet joint hypertrophy from C2-3 to C6-7 levels. C1 is intact. C2 is intact. C3 is intact. C4 is intact. C5 is intact. C6 is intact. C7 is intact. Degenerative changes in the periodontal C1 region. No prevertebral compartment hematoma, mass or fluid collection. Punctate calcifications in the palatine tonsils. Tympanic cavities and mastoid cells are aerated. CT/CT cervical spine wo IV con IMPRESSION: Multilevel spondylosis without acute fracture or trauma-related listhesis. Fleischner guidelines were followed. Electronically signed by: Yifan Sahni MD 01/06/2025 02:27 PM EDT
[2025-01-06 12:08] VITALS: BP 132/81; PULSE 100; RESP 19; TEMP 36.6; O2SAT 98; BMI 32.0
--- NOTE | 2025-01-06 12:10 | ED_ITS ---
HPI - General Adult General Chief complaint: Back Pain/Injury Stated complaint: back pain Time Seen by Provider: 01/06/25 13:51 Source: patient, RN notes reviewed, old records reviewed and health promotion educator Mode of arrival: ambulatory Limitations: language barrier History of Present Illness ED Provider: Raina HPI narrative: Patient is a 64-year-old Vincentian-speaking female with history of asthma, GERD, eczema, obesity presenting to the emergency department with complaint of back pain after a fall yesterday. States that she was getting up to go to the bathroom when she lost her balance, falling backwards into a bureau. She denies head strike or loss of consciousness. Denies headache, vision changes, nausea or vomiting. Complains of mid back pain worse with movement. Denies any p aresthesias to extremities. MD complaint: back pain Onset (ago): day(s) Related Data Home Medications ?Medication ?Instructions ?Recorded ?Confirmed albuterol sulfate 90 mcg/actuation 2 puff inhalation Q4-6H PRN 07/08/20 09/03/24 aerosol inhaler Wheezing amlodipine 10 mg tablet 10 mg PO DAILY 07/08/20 09/03/24 cholecalciferol (vitamin D3) 50 50 mcg PO DAILY 07/08/20 09/03/24 mcg (2,000 unit) capsule (Vitamin D3) chlorthalidone 25 mg tablet 25 mg PO QAM 12/06/23 09/03/24 fluticasone propionate 110 1 puff inhalation 12/06/23 mcg/actuation HFA aerosol inhaler loratadine 10 mg tablet 10 mg PO QAM 12/06/23 09/03/24 prazosin 2 mg capsule 2 mg PO BEDTIME nightmares 12/06/23 09/03/24 quetiapine 100 mg tablet 150 mg PO BEDTIME depressive 12/06/23 09/03/24 disorder sennosides 8.6 mg-docusate sodium 1 tab PO QAM 12/06/23 09/03/24 50 mg tablet (Stimulant Laxative Plus) sertraline 100 mg tablet 150 mg PO QAM 12/06/23 09/03/24 Previous Rx's ?Medication ?Instructions ?Recorded ibuprofen 600 mg tablet 600 mg PO Q8H PRN pain #20 tabs 09/13/21 nebulizers (AeroEclipse II #1 ea 05/06/22 Nebulizer) ondansetron 4 mg disintegrating 4 mg PO Q8H PRN nausea and 03/21/23 tablet vomiting #7 tabs linaclotide 145 mcg capsule 145 mcg PO QAM #30 caps 08/22/24 (Linzess) simethicone 125 mg capsule (Gas 125 mg PO ONCE PRN abdominal 08/29/24 Relief (simethicone)) distention/gas disomfort #4 caps Allergies Allergy/AdvReac Type Severity Reaction Status Date / Time No Known Allergies Allergy Verified 01/06/25 12:11 Review of Systems Review of Systems: As per HPI Yes all other systems are reviewed and are negative Constitutional: Constitutional: Reports as per HPI PMFSH Past Medical History Medical History History of depression Asthma HTN (hypertension) Surgical History History of hysteroscopy History of tubal ligation Family History Family History Maternal Aunt Colon cancer Social History Social History Are you a primary long term care administrator to a significant other at home: No Do you presently have visiting nurse or other home services: No Alcohol intake: never Patient Tobacco Use Status: Never used Tobacco Advance Directives: No Advance Directives Information Provided: Yes Do you have a plan to hurt others: No Plan Physical Exam ED Vital Signs: Vital Signs - 24 hr 01/06/25 12:08 Temperature 98 F Pulse Rate 100 Respiratory Rate 19 Blood Pressure 132/81 Pulse Oximetry 98 Oxygen Delivery Method Room Air BMI result Body Mass Index 32.0 Vital signs have been reviewed and appear to be correct. Blood pressure normal. Heart rate normal. Respiratory rate normal. Temperature normal. Oxygen saturation normal. Const General: cooperative, healthy appearing and no acute distress Orientation/consciousness: oriented to person, oriented to place, oriented to time and patient oriented x3 Limitations: no limitations HENMT Head: Yes normocephalic and Yes atraumatic Ears: external ears normal General nose exam: Normal external nose present Face and sinus: Yes face symmetric Mouth: oropharynx normal and moist mucous membranes Throat: Yes uvula midline Eyes Pupils: Equal, round and reactive pupils present Neck Neck: Yes normal visual inspection and Yes supple Resp Effort & Inspection: normal respiratory effort and able to speak in complete sentences Auscultation: clear to auscultation bilaterally Cardio Rate: regular rate Rhythm: regular rhythm Heart sounds: S1 normal heart sound present and S2 normal heart sound present GI Palpation (GI): Soft to palpation and nontender Auscultation: normoactive bowel sounds General: Yes no CVA tenderness Back/Spine/Pelvis Back: no CVA tenderness Thoracic/Lumbar Spine: thoracic and lumbar spine normal to inspection, thoraco- lumbar ROM normal, pain with thoraco-lumbar ROM, paraspinal muscle tenderness bilaterally in the mid thoracic, thoracic spinal tenderness at T6, at T7 and at T8 and No lumbar spinal tenderness Skin General skin exam: elasticity normal and turgor normal Neuro General: oriented to person, oriented to place, oriented to time, patient oriented x3, gait normal, tone normal, moves all extremities, Normal light touch and pain sensation, no focal motor deficits, CN's II-XI intact bilaterally and deep tendon reflexes 2+ bilaterally Cranial nerves: Yes Equal, round and reactive pupils present Cognition (Neuro): normal cognition Motor exam (neuro): 5/5 motor strength present throughout, Normal motor muscle tone present throughout and Motor abnormalities not present Extrem General: Yes full ROM, Yes no pedal edema and Yes no calf tenderness Psych Mental Status: mental status grossly normal Affect: normal affect Thought process: Normal thought process present Course Course Course Narrative: RME performed by Wendy Dickerson PA-C. Patient is a 64 year old assigned female at presenting to the emergency department with upper back pain after hitting her head on the underside of a cabinet. Detailed physical exam and review of systems are deferred to the date night sitter. Imaging ordered. Patient placed back in the waiting room pending room availability and results. Reevaluation(s) Reevaluation #1: Notified by lab animal technician that patient not in room. Per RAZ Mathis patient was seem ambulating around department but has not been in her room for at least 30 mins, believes patient eloped. Time: 16:04 Medical Decision Making Medical Decision Making MDM Narrative: Patient is a 64-year-old Vincentian-speaking female with history of asthma, GERD, eczema, obesity presenting to the emergency department with complaint of back pain after a fall yesterday. On exam patient is awake, A+Ox3, VS WNL, afebrile, normal neurological exam without focal deficits, physical exam findings as above. Given reported symptoms and physical exam findings, initial differential includes but is not limited to thoracic vertebral fracture or subluxation, contusion muscle strain, spondylosis. No red flag findings to suggest malignancy/mass, SEA, cauda equina/cord compression. CT head and c-spine ordered by triage provider without evidence of ICH, skull or cervical vertebral fracture or subluxation. My interpretation is in agreement with the radiologist's interpretation. Thoracic x-ray and medications ordered, however, patient apparently eloped prior to receiving these medications or having x-ray. Differential Diagnosis Differential Diagnoses: The differential diagnosis associated with the presentation includes as per [facility] Admission/Observation Consideration of admission/observation: Escalation of care including admission/observation considered Patient would have been admitted to the hospital had their work up had any findings where hospital admission was appropriate and their clinical presentation warranted hospital admission. Independent Interpretation I performed an independent interpretation of an: Plain X-Ray and CT Scan Interpretation: CT head and c-spine ordered by triage provider without evidence of ICH, skull or cervical vertebral fracture or subluxation. Radiology Impression Discussion of test interpretation with radiology: I have reviewed the radiologist's reading. Radiologist Impression: CT/CT cervical spine wo IV con IMPRESSION: Multilevel spondylosis without acute fracture or trauma-related listhesis. Fleischner guidelines were followed. CT/CT head/brain wo IV con IMPRESSION: No acute fracture, bony calvarium. No acute intracranial hemorrhage. Discharge Plan Discharge Clinical Impression: Back pain Patient Disposition: Left W/O Completing Treatment Prescriptions: No Action Linzess 145 mcg capsule 145 mcg PO QAM Qty: 30 3RF simethicone [Gas Relief (simethicone)] 125 mg capsule 125 mg PO ONCE PRN (Reason: abdominal distention/gas disomfort) Qty: 4 0RF Rx Instructions: take 2 pills at noon the day before colonoscopy and and last 2 pills once you finish drinking second half of prep amlodipine 10 mg Tablet 10 mg PO DAILY cholecalciferol (vitamin D3) [Vitamin D3] 50 mcg (2,000 unit) Capsule 50 mcg PO DAILY albuterol sulfate 90 mcg/actuation Hfa Aerosol Inhaler 2 puff INHALATION Q4-6H PRN (Reason: Wheezing) ibuprofen 600 mg tablet 600 mg PO Q8H PRN (Reason: pain) Qty: 20 0RF (DME) nebulizers [AeroEclipse II Nebulizer] Misc See Rx Instructions .Route Qty: 1 0RF Rx Instructions: As directed ondansetron 4 mg tablet,disintegrating 4 mg PO Q8H PRN (Reason: nausea and vomiting) Qty: 7 0RF fluticasone propionate 110 mcg/actuation HFA aerosol inhaler 1 puff inhalation sertraline 100 mg tablet 150 mg PO QAM quetiapine 100 mg tablet 150 mg PO BEDTIME loratadine 10 mg tablet 10 mg PO QAM chlorthalidone 25 mg tablet 25 mg PO QAM sennosides-docusate sodium [Stimulant Laxative Plus] 8.6-50 mg tablet 1 tab PO QAM prazosin 2 mg capsule 2 mg PO BEDTIME Print Language: Vincentian
--- OUTSIDE RECORDS SUMMARY | 2025-01-06 15:33 | XMS_ITS | Encounter Summary ---
Author Organization [employer] Address [address] [facility] [address] [facility] [address] [place] [address] Care Team Providers Care Cafeteria Food Server Name Role Phone Keely Townsend MD Primary Care Provider + Encounter Details Date Type Department Care Team ([facility] Contact Info) Description 01/06/2025 Orders Only [facility] External Provider, [facility] Social History Tobacco Use Types Packs/Day Years [...] as of this encounter Plan of Treatment Not on file documented as of this encounter Goals Goal Patient Goal Type Associated Problems Recent Progress Patient-Stated? Author Blood Pressure < 140/90 Blood Pressure 125/80(2024 11:11 AM EDT) No Radha Akbar Patient will improve adherence to medication regimen, goal <2 missed doses per week General No Radha Akbar documented as of this encounter Procedures Procedure Name Priority Date/Time Associated Diagnosis Comments CT CERVICAL SPINE WO CONTRAST Routine 01/06/2025 11:[address] HEAD WO CONTRAST Routine 01/06/2025 1 1:36 AM EDT documented in this encounter Results * CT Cervical Spine w/o Contrast (01/06/2025 11:36 AM EDT) Anatomical Region Laterality Modality Spine, C-spine Computed Tomogra phy 01/06/2025 11:3 6 AM EDT Narrative 01/06/2025 2:30 PM EDT ? [facility] ?[address] ?[place] [address] ? CT Scan Report ? Signed ? Patient: Holly Hicks ?M ?? R#: [id number] ? : 1960 ?Acct:[id number] ? Age/Sex: 64 / F ?ADM Date: 06/16/25 ? Loc: HO.ED ? Attending Dr: ? Ordering Physician: Wendy Dickerson ?? Date of Service: 01/06/25 ?? Procedure(s): CT cervical spine wo IV con ?? Accession Number(s): [id number] ? cc: Keely Townsend MD; Wendy Dickerson ? Report Number: ?? [id number]: Total DLP = ?0.00 mGy-cm ?? EXAMINATION: ?? CT CERVICAL SPINE WITHOUT CONTRAST ? CLINICAL INFORMATION: ?? Injury. ? COMPARISON: ?? None available. ? TECHNIQUE: ?? Contiguous axial images through the cervical spine using 3 mm ?? collimation with bone and soft tissue algorithm. ?? Sagittal and coronal reformatted images acquired with bone algorithm. ?? DLP: 516.38 mGy centimeter. ? This CT examination was performed using dose optimization techniques as ?? appropriate, variously including the following: ?? *Automated exposure control ?? *Adjustment of mA and/or kV according to patient size (this includes ?? techniques or standardized protocols for targeted exams where dose is ?? matched to indication/reason for exam; i.e. extremities or head) ?? *Use of iterative reconstruction technique ? FINDINGS: ?? Craniocervical junction is intact with normal alignment between the ?? occipital condyles and the lateral masses of C1. ?? Marginal osteophyte formation and decreased intervertebral disc height ?? at C5-6 and C6-7. ?? Grade 1 anterolisthesis C4-5. Bilateral facet joint hypertrophy from ?? C2-3 to C6-7 levels. ?? C1 is intact. ?? C2 is intact. ?? C3 is intact. ?? C4 is intact. ?? C5 is intact. ?? C6 is intact. ?? C7 is intact. ?? Degenerative changes in the periodontal C1 region. ?? No prevertebral compartment hematoma, mass or fluid collection. ?? Punctate calcifications in the palatine tonsils. ?? Tympanic cavities and mastoid cells are aerated. ? CT/CT cervical spine wo IV con ?? IMPRESSION: ?? Multilevel spondylosis without acute fracture or trauma-related ?? listhesis. ? Apoorvaner guidelines were followed. ? Electronically signed by: ??Yifan Sahni MD ??01/06/2025 02:27 PM ?? EDT RP ? Dictated By: ?Yifan Frausto MD ? Signed By: ?<Electronically signed by Yifan Jones MD in OV> ? 01/06/25 1427 ? DD/ 1136 ? TD/TT: 01/06/25 1315 ? Color Print Inspector: ? Procedure Note Donotuseinterpreter, Image - 01/06/[address] [address] [address] Scan Report Signed Patient: Coral Hicks#: [id number] : 2Acct:[id number] Age/Sex: 64 / FADM Date: 01/06/25 Loc: HO.ED Attending Dr: Ordering Physician: Wendy Dickerson Date of Service: 01/06/25 Procedure(s): CT cervical spine wo IV con Accession Number(s): [id number] cc: Keely Townsend MD; Wendy Dickerson Report Number: [id number]: Total DLP = 0.00 mGy-cm EXAMINATION: CT CERVICAL SPINE WITHOUT CONTRAST CLINICAL INFORMATION: Injury. COMPARISON: None available. TECHNIQUE: Contiguous axial images through the cervical spine using 3 mm collimation with bone and soft tissue algorithm. Sagittal and coronal reformatted images acquired with bone algorithm. DLP: 516.[address] examination was performed using dose optimization techniques as appropriate, variously including the following: *Automated exposure control *Adjustment of mA and/or kV according to patient size (this includes techniques or standardized protocols for targeted exams where dose is matched to indication/reason for exam; i.e. extremities or head) *Use of iterative reconstruction technique FINDINGS: Craniocervical junction is intact with normal alignment between the occipital condyles and the lateral masses of C1. Marginal osteophyte formation and decreased intervertebral disc height at C5-6 and C6-7. Grade 1 anterolisthesis C4-5. Bilateral facet joint hypertrophy from C2-3 to C6-7 levels. C1 is intact. C2 is intact. C3 is intact. C4 is intact. C5 is intact. C6 is intact. C7 is intact. Degenerative changes in the periodontal C1 region. No prevertebral compartment hematoma, mass or fluid collection. Punctate calcifications in the palatine tonsils. Tympanic cavities and mastoid cells are aerated. CT/CT cervical spine wo IV con IMPRESSION: Multilevel spondylosis without acute fracture or trauma-related listhesis. Fleischner guidelines were followed. Electronically signed by: Yifan Sahni MD 01/06/2025 02:27 PM EDT RP Dictated By: Yifan Frausto MD Signed By: <Electronically signed by Yifan Jones MDin OV> 01/06/25 1427 DD/ 1136 TD/TT: 01/06/25 1315 Color Print Inspector: us [facility] External Provider IMG CT PROCEDURES Edited Result - Final * CT Head w/o Contrast (01/06/2025 11:36 AM EDT) Anatomical Region Laterality Modality Head, Neck Computed Tomogra phy 01/06/2025 11:3 6 AM EDT Narrative 01/06/2025 2:18 PM EDT ? [facility] ?[address] ?[place] [address] ? CT Scan Report ? Signed ? Patient: Holly Hicks ?M ?? R#: [id number] ? : 1960 ?Acct:[id number] ? Age/Sex: 64 / F ?ADM Date: 01/06/25 ? Loc: HO.ED ? Attending Dr: ? Ordering Physician: Wendy Dickerson ?? Date of Service: 01/06/25 ?? Procedure(s): CT head/brain wo IV con ?? Accession Number(s): [id number] ? cc: Keely Townsend MD; Wendy Dickerson ? Report Number: ?? [id number]: Total DLP = 1222.99 mGy-cm ?? EXAMINATION: ?? CT HEAD WITHOUT CONTRAST ? CLINICAL INFORMATION: ?? head injury, pain ? COMPARISON: ?? None available. ? TECHNIQUE: ?? Contiguous axial imaging was performed from the skull base to vertex ?? without intravenous administration of contrast. ? This CT examination was performed using dose optimization techniques as ?? appropriate, variously including the following: ?? *Automated exposure control ?? *Adjustment of mA and/or kV according to patient size (this includes ?? techniques or standardized protocols for targeted exams where dose is ?? matched to indication/reason for exam; i.e. extremities or head) ?? *Use of iterative reconstruction technique ? DLP: ?? 706.61 mGy-cm ? FINDINGS: ?? No acute cortical disruption in the bony calvarium or skull base. ?? No acute intracranial hemorrhage, mass effect, midline shift, ?? hydrocephalus or herniation. ?? Crowley-white matter differentiation is normal. ?? Sellar/suprasellar region demonstrated no gross masses. ?? Craniocervical junction demonstrates normal position of the cerebellar ?? tonsils. ?? Posterior cranial fossa contents demonstrated no acute intracranial ?? hemorrhage or mass effect. ?? Calcifications in the putamen bilaterally. ?? No air-fluid levels in the included paranasal sinuses. ?? Tympanic cavities and mastoid cells are aerated. ?? Asymmetric prominent right parotid gland, superficial component ?? Calcified plaques in the cavernous supracavernous segments both ICAs.. ? CT/CT head/brain wo IV con ?? IMPRESSION: ?? No acute fracture, bony calvarium. ?? No acute intracranial hemorrhage. ? Electronically signed by: ??Yifan Sahni MD ??01/06/2025 02:15 PM ?? EDT ? Dictated By: ?Yifan Frausto MD ? Signed By: ?<Electronically signed by Yifan Jones MD in OV> ? 01/06/25 1415 ? DD/ 1136 ? TD/TT: 01/06/25 1315 ? Color Print Inspector: ? Procedure Note Donloanter, Image - 01/06/[address] [place] [address] [address] Scan Report Signed Patient: Coral Hicks R#: [id number] : 2Acct:[id number] Age/Sex: 64 / FADM Date: 01/06/25 Loc: HO.ED Attending Dr: Ordering Physician: Wendy Dickerson Date of Service: 01/06/25 Procedure(s): CT head/brain wo IV con Accession Number(s): [id number] cc: Keely Townsend MD; Wendy Dickerson Report Number: [id number]: Total DLP = 1222.99 mGy-cm EXAMINATION: CT HEAD WITHOUT CONTRAST CLINICAL INFORMATION: head injury, pain COMPARISON: None available. TECHNIQUE: Contiguous axial imaging was performed from the skull base to vertex without intravenous administration of contrast. This CT examination was performed using dose optimization techniques as appropriate, variously including the following: *Automated exposure control *Adjustment of mA and/or kV according to patient size (this includes techniques or standardized protocols for targeted exams where dose is matched to indication/reason for exam; i.e. extremities or head) *Use of iterative reconstruction technique DLP: 706.61 mGy-cm FINDINGS: No acute cortical disruption in the bony calvarium or skull base. No acute intracranial hemorrhage, mass effect, midline shift, hydrocephalus or herniation. Crowley-white matter differentiation is normal. Sellar/suprasellar region demonstrated no gross masses. Craniocervical junction demonstrates normal position of the cerebellar tonsils. Posterior cranial fossa contents demonstrated no acute intracranial hemorrhage or mass effect. Calcifications in the putamen bilaterally. No air-fluid levels in the included paranasal sinuses. Tympanic cavities and mastoid cells are aerated. Asymmetric prominent right parotid gland, superficial component Calcified plaques in the cavernous supracavernous segments both ICAs.. CT/CT head/brain wo IV con IMPRESSION: No acute fracture, bony calvarium. No acute intracranial hemorrhage. Electronically signed by: Yifan Sahni MD 01/06/2025 02:15 PM EDT Dictated By: Yifan Frausto MD Signed By: <Electronically signed by Yifan Jones MDin OV> 01/06/25 1415 DD/ 1136 TD/TT: 01/06/25 1315 Color Print Inspector: [facility] External Provider IMG CT PROCEDURES Edited Result - Final documented in this encounter Visit Diagnoses Not on filedocumented in this encounter Care Teams Cafeteria Food Server Relationship Specialty Start Date End Date Keely Townsend MD [address] [place] [id number] PCP - General Family Medicine 11/15/19 documented as of this encounter
--- NOTE | 2025-01-06 15:42 | PC.NURSE ---
patient noted to not be in room/bathrooms at this time
== END 2025-01-06 15:45 | disposition left against medical advice (07) ==
PROVIDERS: Emergency Provider Emergency Medicine Emergency Medical Services; PCP Internal Medicine
DX: M54.89 Other dorsalgia (principal); I10 Essential (primary) hypertension; Z79.899 Other long term (current) drug therapy
CPT/HCPCS: 70450; 72125; 99281; 99283; 99284

== ENCOUNTER → 2025-01-06 12:10 | Outpatient (BNV) | payer MEDICAID, SELFPAY | PROVIDERS: Emergency Provider Emergency Medicine Emergency Medical Services; PCP Internal Medicine; Visit Provider Radiology Diagnostic Radiology | DX: M47.812 Spondylosis without myelopathy or radiculopathy, cervical region (principal); G44.309 Post-traumatic headache, unspecified, not intractable | CPT/HCPCS: 70450; 72125 ==

== ENCOUNTER 2025-02-20 12:56 | Outpatient (REF) | payer MEDICAID, SELFPAY ==
--- OUTSIDE RECORDS SUMMARY | 2025-02-20 13:04 | XMS_ITS | Encounter Summary ---
Author Organization [employer] Address [address] [facility] [address] [place] [address] Care Team Providers Care Proteomics Scientist Name Role Phone Keely Townsend MD Primary Care Provider + Sudheer Ward RN Unavailable [phone] Deepti Segovia Unavailable Encounter Details Date Type Department Care Team (Late st Contact Info) Description 02/19/[address] [facility] [address] [place] [address] Keely Townsend MD [address] [place], [place] [id number] Social History Tobacco Use Types Packs/Day Years Used Date Smoking Tobacco: Never Passive Smoke Exposure: Never Smokeless Tobacco: Never Alcohol Use Standard Drinks/Week Comments Never 0 (1 standard drink = 0.6 oz pur e alcohol) Depression Answer Date Recorded Patient Health Questionnaire-9 Score 0 02/20/2025 Patient Health Questionnaire-9 Score 0 02/20/2025 Last PHQ-9: Questionnaire Data Not on file 0 02/20/2025 Housing Stability Answer Date Recorded What is your housing situation today? I have ash cotton 08/02/[address] you li ve. Do you have problems with any of the following? None of the above 08/02/2024 Food Insecurity Answer Date Recorded Within the past 12 months, y ou worried that your food would run out before you got money to buy more: Sometimes True 2024 Within the past 12 months,th e food you bought just didn't last and you didn't have enough money to get more: Sometimes True 01/15/2025 Transportation Answer Date Recorded In the past [...] Date Recorded Patient Health Questionnaire-2 Score 0 02/20/2025 Internet Access Answer Date Recorded Internet Access [...] encounter Miscellaneous Notes * Telephone Encounter - Shea Sheets [place] - 02/19/2025 11:35 AM EDT Chart Prep Labs: not applicable Images: done Referrals: not applicable Vaccines due: Covid, PCV20, and RSV Screenings: not applicable Overdue care gaps: SBIRT, DENG-7, and Disability screen documented in this encounter Plan of Treatment Not on file documented as of this encounter Goals Goal Patient Goal Type Associated Problems Recent Progress Patient-Stated? Author Blood Pressure < 140/90 Blood Pressure 122/82(2024 10:46 AM EDT) No Radha Akbar Patient will improve adherence to medication regimen, goal <2 missed doses per week General No Radha Akbar documented as of this encounter Visit Diagnoses Not on filedocumented in this encounter Care Teams Proteomics Scientist Relationship Specialty Start Date End Date Keely Townsend MD [address] [place] [phone] PCP - General Family Medicine 11/15/19 Sudheer Ward, RN [address] [place] [id number] Registered Nurse Family Medicine 01/07/25 Deepti Segovia 01/07/25 documented as of this encounter
[2025-02-20 14:52] LABS: Bacterial Vaginosis PCR NEGATIVE (Negative); Candida Group PCR NOT DETECTED (Not Detect); Candida glab krusei PCR NOT DETECTED (Not Detect); Trichomonas vaginalis PCR DETECTED (Not Detect)
[2025-02-20 15:23] LABS: CT PCR NOT DETECTED (Not Detect.); NG PCR NOT DETECTED (Not Detect.)
== END 2025-02-20 12:57 | disposition home or self-care (01) ==
LOC: HO.HHCLNP 12:56
PROVIDERS: Visit Provider Internal Medicine
DX: N76.0 Acute vaginitis (principal); Z11.3 Encounter for screening for infections with a predominantly sexual mode of transmission; Z11.8 Encounter for screening for other infectious and parasitic diseases
CPT/HCPCS: 81515; 87491; 87591

== ENCOUNTER 2025-03-20 13:48 | Outpatient (AMB) | payer MEDICAID, SELFPAY ==
[2025-03-20 13:52] VITALS: BP 130/72; PULSE 90; O2SAT 96; BMI 32.7
--- NOTE | 2025-03-20 13:52 | A.OFFVIS_ITS ---
Vital Signs 03/20/25 13:52 Height 5 ft 2 in Weight 179 lb BMI 32.7 BP 130/72 Blood Pressure Location Rt brachial Position Sitting Pulse 90 Pulse Source Pulse Oximeter Pulse Oximetry (%) 96 Oxygen Delivery Method Room Air Intake Visit Reasons: Constipation/medication Intake Note: Est pt for mgmt of constipation and review of medication response. CC; Pt denies any GI changes or new concerns at this time. Pt states, since her last visit, she has been doing well with the medication changes. Car And Yard Supervisor Required: Yes Car And Yard Supervisor Services: Car And Yard Supervisor Present Car And Yard Supervisor Name: [id number] [facility]. Accompanied by: Self / Same As Patient Allergies No Known Allergies Allergy (Verified 03/20/25 13:53) HPI HPI Constipation/medication: Details: Assessment & Plan (1) GERD (gastroesophageal reflux disease): Code(s): K21.9 - Gastro-esophageal reflux disease without esophagitis Category: Medical (2) Constipation: Code(s): K59.00 - Constipation, unspecified Category: Medical Plan Swedish #[id number] Slim This is her first colonoscopy. She suffers CIC with pain and cramping that is not successfully treated with senna, colace, fiber, bisacodyl, miralax. I will progress her to Linzess 145mcg and titrate. She will have worsening nausea and GERD when she has not moved her bowels. There are no prior problems with anesthesia or sedation. Her asthma is well controlled and she denies cardiac problems. No ID problems. She had a maternal aunt who later in life from CRC no other known hx of CRC or polyps. Return office visit in 5 weeks to titrate her Linzess. Medications: New peg 3350-electrolytes 236-22.74-6.74 -5.86 gram (Golytely) until fecal effluent is clear; do not exceed a total volume of 2,000 mL 240 mL PO Q10M 4,000 mL 0RF 1 day Z12.11 - Encounter for screening for malignant neoplasm of colon bisacodyl (Dulcolax (bisacodyl)) 10 mg (2 x 5 mg) PO BEDTIME 4 tabs 0RF 2 days linaclotide (Linzess) Take first thing in the morning with a full glass of water. 145 mcg PO QAM 30 caps 3RF K58.1 - Irritable bowel syndrome with constipation COLONOSCOPY 09/03/24 Findings: Terminal Ileum-normal Cecum:normal Ascending Colon: normal Transverse Colon -normal Descending Colon:normal Sigmoid Colon: moderate diverticulosis, x 2 sessile polyps 6-9 mm removed with cold snare Rectum: Retroflexion with small internal hemorrhoids seen, grade I Anorectum - normal Intervention: cold snare Impression and Post Procedure Diagnosis: diverticulosis colon polyps internal hemorrhoids Plan: High fiber diet leaflet Avoid straining at stool, epsom salts and sitz bath, anusol supps or cream Repeat Colonoscopy in 5 years due to polyps or earlier if clinically indicated BIOPSY eceived: 09/03/24 Diagnosis Colon, sigmoid, polypectomies: Tubular adenomata (2); negative for high-grade dysplasia or carcinoma Swedish #[id number] [facility] Medical History History of depression Asthma HTN (hypertension) Surgical History History of hysteroscopy History of tubal ligation Family History Maternal Aunt Colon cancer Social History Are you a primary care management assistant to a significant other at home: No Do you presently have visiting nurse or other home services: No Alcohol intake: never Patient Tobacco Use Status: Never used Tobacco Female Reproductive History Menstrual Age of Menarche: 12 Review of Systems Const Denies fatigue, Denies fever(s), Denies night sweats, Denies poor appetite and Denies weight loss ENT Reports Normal hearing present, Denies dental pain, Denies dysphagia, Denies hearing loss, Denies mouth pain, Denies odynophagia, Denies throat swelling, Denies tongue swelling and Reports other (Dentition adequate) Card Reports no additional complaints Resp Reports no additional complaints GI Details: Denies abdominal pain, Denies melena, Denies bloating, Denies hematochezia, Reports constipation, Denies GI cramping, Denies dysphagia, Denies excessive flatus, Denies early satiety, Denies heartburn, Denies diarrhea, Denies nausea, Denies odynophagia, Denies vomiting and Denies hematemesis Skin/Breast Denies pruritus, Denies lesions, Denies rash and Denies jaundice Neuro Reports Normal hearing present and Denies Abnormal speech present Endo Denies fatigue Aller/Immun Denies throat swelling and Denies tongue swelling Physical Exam Vital Signs: Last Vital Signs Pulse 90 03/20/25 13:52 BP 130/72 03/20/25 13:52 Pulse Ox 96 03/20/25 13:52 Oxygen Delivery Method Room Air 03/20/25 13:52 BMI result Body Mass Index 32.7 Const General: cooperative, no acute distress, well developed and well groomed Nutritional Appearance: well nourished and obese Orientation/consciousness: oriented to person, oriented to place and oriented to time Limitations: language barrier HEENT Head: Yes normocephalic and Yes atraumatic Eyes General: appearance normal, both eyes and all related structures Pupils: Equal, round and reactive pupils present Neck Neck: Yes normal visual inspection and Yes no lymphadenopathy Thyroid: Thyroid normal Resp Effort & Inspection: normal respiratory effort and able to speak in complete sentences Auscultation: clear to auscultation bilaterally Cardio Rate: regular rate Rhythm: regular rhythm Heart sounds: Normal, physiologic split S2 sound present Peripheral pulses: radial pulses present and posterior tibial pulses present GI Inspection: No distended, No Abdominal panniculus present and Yes obesity Palpation (GI): Soft to palpation, nontender, no guarding, not rigid and No hepatosplenomegaly present Percussion: Yes normal to percussion Auscultation: normal bowel sounds Rectal Exam - Female: deferred Skin General skin exam: no rashes or lesions noted, turgor normal, skin not dry, no jaundice, No spider nevi and no striae Rashes: no rashes Nails: normal Neuro General: oriented to person, oriented to place and oriented to time Cranial nerves: Yes Equal, round and reactive pupils present and Yes Normal hearing present Speech: No Abnormal speech present Extrem General: Yes normal to inspection, No clubbing, No cyanosis and No edema Psych Appearance: grossly normal and well kempt Mental Status: mental status grossly normal Speech and movement: Normal speech and movement present Affect: normal affect Attitude: cooperative Thought process: Normal thought process present and not confabulating Thought content: Normal thought content present Insight: Fair insight present (Psych) Judgement: Fair judgement present (Psych) Results Reviewed Results Reviewed: COLONOSCOPY 09/03/24 Findings: Terminal Ileum-normal Cecum:normal Ascending Colon: normal Transverse Colon -normal Descending Colon:normal Sigmoid Colon: moderate diverticulosis, x 2 sessile polyps 6-9 mm removed with cold snare Rectum: Retroflexion with small internal hemorrhoids seen, grade I Anorectum - normal Intervention: cold snare Impression and Post Procedure Diagnosis: diverticulosis colon polyps internal hemorrhoids Plan: High fiber diet leaflet Avoid straining at stool, epsom salts and sitz bath, anusol supps or cream Repeat Colonoscopy in 5 years due to polyps or earlier if clinically indicated BIOPSY eceived: 09/03/24 Diagnosis Colon, sigmoid, polypectomies: Tubular adenomata (2); negative for high-grade dy splasia or carcinom Assessment & Plan Assessment & Plan (1) Tubular adenoma of colon: Comment: 08/2024= 2 TA IS REPEAT IN 5 YEARS Code(s): D12.6 - Benign neoplasm of colon, unspecified Category: Medical (2) GERD (gastroesophageal reflux disease): Code(s): K21.9 - Gastro-esophageal reflux disease without esophagitis Category: Medical (3) Constipation: Code(s): K59.00 - Constipation, unspecified Category: Medical Plan Swedish #[id number] SHE IS AGREEABLE TO A 5 YEAR FOLLOW-UP. The procedure was well tolerated. The results were explained and the patient is agreeable to the follow-up interval as stated. The bowel pattern has returned to normal. Education was provided to tell any 1st degree relatives about their findings to be sure that they are screened by age 45. Educated that they will be put on a recall list when it is time for their repeat scope but should they move out of state or away from the hospital they will need to remember along with their primary to repeat the proc edure in a timely fashion to avoid any adverse complications. She is now though moving her bowels well with the Linzess at 145 micro g. She does not feel she needs any dose adjustment. Her nausea and vomiting has lessened as in the past it was usually exacerbated/triggered by severe constipation. I let her know that if she needs dose adjustments in the future there are higher or lower tears we can experiment with. She confirms that she no longer is utilizing senna or any other [id number] laxative. Return office visit in 6 months Medications: Refilled linaclotide (Linzess) 145 mcg PO QAM 30 caps 6RF K58.1 - Irritable bowel syndrome with constipation Discontinued simethicone (Gas Relief (simethicone)) take 2 pills at noon the day before colonoscopy and and last 2 pills once you finish drinking second half of prep Discontinued Reason: Change Referral Type 125 mg PO ONCE PRN 4 caps 0RF abdominal distention/gas disomfort Coding Level of Care Code Est Pt Level 3 (48812) Diagnoses Tubular adenoma of colon D12.6 GERD (gastroesophageal reflux disease) K21.9 Constipation K59.00
--- OUTSIDE RECORDS SUMMARY | 2025-03-20 14:33 | XMS_ITS | Encounter Summary ---
Author Organization [employer] Address [address] [place] [address] Care Team Providers Care Reversing Mill Roller Name Role Phone Keely Townsend MD Primary Care Provider + Sudheer Ward RN Unavailable [phone] Deepti Segovia Unavailable Encounter Details Date Type Department Care Team (Late st Contact Info) Description 09/04/2024 Orders Only [facility] MED[facility]INE [address] [place] [address] ProviderGenevieve MD Social History Tobacco Use Types Packs/Day Years [...] on filedocumented in this encounter Care Teams Reversing Mill Roller Relationship Specialty Start Date End Date Keely Townsend MD [address] [place] [address] PCP - General Family Medicine 11/15/19 Sudheer Ward, RN [address] [place] [address] Registered Nurse Family Medicine 01/07/25 Deepti Segovia 01/07/25 documented as of this encounter
--- OUTSIDE RECORDS SUMMARY | 2025-03-20 14:33 | XMS_ITS ---
Author Organization [employer] Address [address] [facility] [address] [place] [address] Care Team Providers Care Apparatus Repair Mechanic Name Role Phone Keely Townsend MD Primary Care Provider + Sudheer Ward RN Unavailable [phone] Deepti Segovia Unavailable CM Complex Status:Outreach In Progress (Enrolling) Start date:01/07/2025 Enrollment reason:ADT Feed Overview ED- Pt went to [facility] ED on 01/06/25. Case Team Name Relationship Phone Sudheer Ward RN(Responsible Staff) Registered [facility] [phone] Continued Care and Services Coordination
--- OUTSIDE RECORDS SUMMARY | 2025-03-20 14:33 | XMS_ITS ---
Author Organization [employer] Address [address] [facility] [address] [place] [address] Care Team Providers Care Stonemason Apprentice Name Role Phone Keely Townsend MD Primary Care Provider + Sudheer Ward RN Unavailable [phone] Deepti Segovia Unavailable CHW Complex Status:Enrolled (Active) Start date:01/07/2025 Enrollment date:01/15/2025 Enrollment reason:ADT Feed Overview ED- Pt went to [facility] ED on 01/06/25. Case Team Name Relationship Phone Deepti Segovia(Responsible Staff) Continued Care and Services Coordination
--- OUTSIDE RECORDS SUMMARY | 2025-03-20 14:34 | XMS_ITS | Encounter Summary ---
Author Organization [employer] Address [address] [facility] [address] [place] [address] Care Team Providers Care Commissary Production Supervisor Name Role Phone Keely Townsend MD Primary Care Provider + Sudheer Ward RN Unavailable [phone] Deepti Segovia Unavailable Reason for Visit * Reason Comments Med Refill Encounter Details Date Type Department Care Team (Late st Contact Info) Description 03/16/2025 Refill [facility] [address] [place] [address] Keely Townsend MD [address] [place] [address] Primary hypertension Social History Tobacco Use Types [...] Unspecified essential hypertension documented in this encounter Additional Health Concerns Assessment Noted Time PHQ-9 Depression Total Score: 0 02/21/20 11:00 AM EDT documented as of this encounter Care Teams Commissary Production Supervisor Relationship Specialty Start Date End Date Keely Townsend MD [address] [place] [address] PCP - General Family Medicine 11/15/19 Sudheer Ward, RAZ [address] [place] [id number] Registered Nurse Family Medicine 01/07/25 Deepti Segovia 01/07/25 documented as of this encounter
--- OUTSIDE RECORDS SUMMARY | 2025-03-20 14:34 | XMS_ITS | Encounter Summary ---
Author Organization [facility] Address [address] [place] [address] Care Team Providers Care Credit Collector Name Role Phone Keely Townsend MD Primary Care Provider + Sudheer Ward RN Unavailable [phone] Deepti Segovia Unavailable Encounter Details Date Type Department Care Team (Latest Contact Info) Description 08/16/2022 Orders Only [facility] [address] [place] [address] Keely Townsend MD [address] [place], [place] [phone] Hypercholesterolemia (Primary Dx); Vitamin D deficiency Social [...] on file documented as of this encounter Procedures Procedure [...] (CHERRY) (03/21/2023 1:30 PM EDT) IDNOW SERIAL# [id number] [facility] COVID-19 TEST Negative Negative [facility] COVID-19 NOTE See Note [facility] Comment: Results are for the identification of SARS-CoV2 RNA. TheSARS-CoV2 RNA is generally detectable in respiratory samplesduring the acute phase of infection. Positive results areindicative of the presence of SARS-CoV-2 RNA; clinicalcorrelation with patient history and other diagnosticinformation is necessary to determine patient infectionstatus. Positive results do not rule out bacterial infectionor co- infection with other viruses.Testing facilities within the [place] and itsterritories are required to report all positive results [...] use by authorized laboratories.Testing performed on the Cherry ID NOW utilizing NAAT. 03/21/2023 1:30 PM EDT 03/21/2023 1:31 PM EDT [facility] Provider LAB MOLECULAR DIAGNOSTICS ORDERABLES Final Result [facility] [address] [place] [phone] * Influenza A B2 ID NOW (Cherry) (03/21/2023 1:30 PM EDT) IDNOW SERIAL# [id number] [facility] Influenza A Negative Negative [facility] Influenza B2 Negative Negative [facility] Influenza A B2 Note See Note [facility] Comment:The Cherry ID NOW In fluenza [...] 1:30 PM EDT 03/21/2023 1:31 PM EDT [facility] Provider LAB MICROBIOLOGY - GENERAL ORDERABLES Final Result [facility] [address] [place] [phone] * Gastrointestinal panel (03/21/2023 11:48 AM EDT) Campylobacter Not Detected Not Detect. [facility] Plesiomonas shigelloides Not Detected Not Detect. [facility] Salmonella Not Detected Not Detect. [facility] Vibrio Not Detected Not Detect. [facility] Vibrio cholerae Not Detected Not Detect. [facility] YERSINIA ENTEROCOLITICA Not Detected Not Detect. [facility] Enteroaggregative E. coli (EAEC) Not Detected Not Detect. [facility] Enteropathogenic E. coli (EPEC) Not Detected Not Detect. [facility] Enterotoxigenic E. coli (ETEC) lt/st Not Detected Not Detect. [facility] Shiga-like toxin-producing E. coli (STEC) stx1/stx2 Not Detected Not Detect. [facility] E coli O157 Not applicable Not Detect. [facility] Comment:E. coli containing t he O157 antigen are a subset ofShiga-like toxin- producing E. coli (STEC). Shigella/Enteroinvasive E. coli (EIEC) Not Detected Not Detect. [facility] Cryptosporidium Not Detected Not Detect. [facility] Cyclospora cayetanensis Not Detected Not Detect. [facility] Entamoeba histolytica Not Detected Not Detect. [facility] Giardia lamblia Not Detected Not Detect. [facility] Adenovirus F 40/41 Not Detected Not Detect. [facility] Astrovirus Not Detected Not Detect. [facility] Norovirus GI/GII Not Detected Not Detect. [facility] Rotavirus A Not Detected Not Detect. [facility] Sapovirus Not Detected Not Detect. [facility] Comment: All results must be correlated [...] assay is performed by Multiplexed PCR, utilizing [employer] Array. 03/21/2023 11:4 8 AM EDT 03/21/2023 12:13 PM EDT [facility] Provider LAB MICROBIOLOGY - GENERAL ORDERABLES Final Result Performing Organization Address [facility] de Phone Number [facility] [address] [place] [phone] * CDiff Gene PCR (03/21/2023 11:48 AM EDT) CDiff Gene PCR NEGATIVE Negative [facility] Comment:If C. difficile stro ngly suspected despite one negativetest, a second test may be sent vs. empiric treatment forC. difficile infection. 03/21/2023 11:4 8 AM EDT 03/21/2023 12:13 PM EDT [facility] Provider LAB BODY FLUIDS AND STOOLS ORDERABLES Final Result Performing Organization Address [facility] Co de Phone Number [facility] [address] [place] [phone] * Urinalysis w/reflex microscopic (03/21/2023 11:48 AM EDT) Color Urine Yellow [facility] Appearance Urine Cloudy [facility] PH 5.5 5.0 - 9.0 [facility] Glucose Urine UA Negative Negative mg/dL [facility] Urine Blood Negative Negative [facility] Specific [place] - Urine 1.025 1.005 - 1.025 [facility] Urine Protein Trace Neg-Trace mg/dL [facility] Urine Ketones Negative Negative mg/dL [facility] Nitrite Urine Negative Negative [facility] Leukocyte Esterase Urine Negative Negative [facility] 03/21/2023 11:4 8 AM EDT 03/21/2023 12:13 PM EDT Narrative [facility] - 03/21/2023 12:19 PM EDT Urine, Clean Catch [facility] External Provider LAB URI NE ORDERABLES Final Result [facility] [address] [place] [phone] * Lipase (03/21/2023 11:02 AM EDT) Lipase 29 8 - 78 U/L [facility] 03/21/2023 11:0 2 AM EDT 03/21/2023 11:10 AM EDT Generic External Data Provider LAB BLOOD ORDERAB LES Final Result Performing Organization Address City/[facility]/ZIP Co de Phone Number [facility] [address] [place] [phone] * Basic Metabolic Panel (03/21/2023 11:02 AM EDT) Sodium 142 135 - 145 mmol/L [facility] Potassium 3.5 3.3 - 5.1 mmol/L [facility] Chloride 108 96 - 108 mmol/L [facility] Carbon Dioxide 22 22 - 29 mmol/L [facility] Anion Gap 16 12 - 20 [facility] Urea Nitrogen (BUN) 11 9 - 16 mg/dL [facility] Creatinine, Serum 0.78 0.5 - 1.4 mg/dL [facility] Creatinine Clr Calc Pharmacy 75.6 [facility] Comment:Provided height and weight: 157.48 cm,83.007 kg.eGFR (calculated from the MDRD study equation) and eCrCl(calculated from the Cockcroft-Gault equation) are based ondifferent parameters and may not yield comparable results.If eCrCl result is absurd, please check patient'sheight/weight. Estimated Glomerular Filt Rate >60 [facility] Comment:NOTE: For -Am erican individuals, multiply the result by 1.210.Chronic Kidney Disease: Estimated GFR < 60 mL/min/[id number] Kidney Disease: Estimated GFR < 15 mL/min/1.73m2 Glucose 109 60 - 115 mg/dL [facility] Calcium 10.0 8.4 - 10.2 mg/dL [facility] 03/21/2023 11:0 2 AM EDT 03/21/2023 11:10 AM EDT us Generic External Data Provider LAB BLOOD ORDERAB LES Final Result [facility] [address] [place] [phone] * (ABNORMAL) Hepatic Function Panel (03/21/2023 11:02 AM EDT) Bilirubin, Total 0.8 0.0 - 1.0 mg/dL [facility] Bilirubin, Direct 0.3 0.0 - 0.5 mg/dL [facility] Aspartate Amino Transferase 24 5 - 31 U/L [facility] Alanine Aminotransferase 22 0 - 31 U/L [facility] Total Protein 8.4(H) 6.5 - 8.0 g/dL [facility] Albumin Level 4.5 3.5 - 5.0 g/dL [facility] Alkaline Phosphatase 86 39 - 117 U/L [facility] 03/21/2023 11:0 2 AM EDT 03/21/2023 11:10 AM EDT us [facility] External Provider LAB BLO OD ORDERABLES Final Result [facility] [address] [place] [phone] * CBC auto differential (03/21/2023 11:02 AM EDT) White Blood Count 8.6 4.8 - 10.8 X10*3/uL [facility] Red Blood Count 4.76 4.20 - 5.50 X10*6/uL [facility] Hemoglobin 14.7 12.0 - 16.0 g/dl [facility] Hematocrit 44.3 37.0 - 47.0 % [facility] Mean Corpuscular Volume 93.1 80.0 - 98.0 fL [facility] Mean Corpuscular Hemoglobin 30.9 27.0 - 33.0 pg [facility] Mean Corpuscular HGB Conc 33.2 31.0 - 35.0 g/dl [facility] Red Cell Distribution Width 13.0 11.0 - 16.0 % [facility] Platelet Count 296 160 - 400 X10*3/uL [facility] Mean Platelet Volume 10.2 9.4 - 12.3 fL [facility] Neutrophils Percent Auto 55.5 45 - 73 % [facility] Imm Gran Pct Auto 0.2 0.0 - 0.4 % [facility] Lymphocytes Percent Auto 30.0 20 - 40 % [facility] Monocytes Percent Auto 10.0 2 - 11 % [facility] Eosinophils Percent Auto 3.8 0 - 4 % [facility] Basophils Percent Auto 0.5 0 - 2 % [facility] NRBC Pct Auto 0.0 0.0 - 0.2 /100WBC [facility] Neutrophils Absolute Auto 4.8 2.0 - 8.3 x10*3/uL [facility] Imm Gran Abs Auto 0.02 0.00 - 0.03 X10*3/uL [facility] Lymphocytes Absolute Auto 2.6 1.2 - 4.9 X10*3/uL [facility] Monocytes Absolute Auto 0.9 0.1 - 1.2 X10*3/uL [facility] Eosinophils Absolute Auto 0.3 0.0 - 0.4 X10*3/uL [facility] Basophils Absolute Auto 0.0 0.0 - 0.2 X10*3/uL [facility] NRBC Abs Auto 0.000 0.0 - 0.012 X10*3/uL [facility] 03/21/2023 11:0 2 AM EDT 03/21/2023 11:10 AM EDT us [facility] External Provider LAB BLO OD ORDERABLES Final Result [facility] [address] [place] [phone] * Lipid Panel, Standard (02/28/2023 8:17 AM EDT) Triglycerides 157 mg/dL [facility] Comment:Desirable Triglyceri de: less than 150 mg/dLBorderline High Triglyceride 150-199 mg/dLHigh Triglyceride: 200-499 mg/dLVery High Triglyceride: greater than or equal to 5OO mg/dL Cholesterol 186 mg/dL [facility] Comment:Desirable Cholestero l: less than 200 mg/dLBorderline High Cholesterol: 200-239 mg/dLHigh Cholesterol: greater than 239 mg/dL LDL Cholesterol Calculated 110 mg/dl [facility] Comment:Desirable LDL: less than 100 mg/dLNear Optimal/Above Optimal LDL: 110- 129 mg/dLBorderline High LDL: 130-159 mg/dLHigh LDL: 160-189 mg/dLVery High LDL: greater than or equal to 190 mg/dL HDL Cholesterol 45 mg/dL [facility] Comment:Desirable HDL: great er than 40 mg/dL Note: This HDL assay may give artificially low results in patients with liver disease. 02/28/2023 8:17 AM EDT 02/28/2023 11:24 AM EDT us Keely Townsend MD LAB BLOOD ORDERABLES Fin al Result [facility] [address] [place] [phone] * Hematoxylin and Eosin Stain (11/09/2022 11:12 AM EDT) 11/09/2022 11:1 2 AM EDT 11/09/2022 1:45 PM EDT Narrative [facility] - 11/10/2022 2:32 PM EDT ----- ------- Name: Holly Hicks Age/Sex: 61/F : 1960 Unit#: [id number] Attend Dr: Dre Abebe MD Re11/09/22 Status: DEP REF Location: HO.LNP Disch: ----- ------- SPEC : [id number] RECD: 11/09/22 STATUS: EBENEZER CALDERA NUM: [id number] SANDY: 11/09/22-[address] [facility] [address]: Dre Abebe MD ENTERED: 11/09/22-0334 SP TYPE: Surgical OTHR DR: Keely Townsend MD ORDERED: HE Stain/2, Gross Micro L4 Diagnosis Endometrium, biopsy: -Strips of benign atrophic endometrium; no atypia or carcinoma. -Benign endocervical glandular epithelium and scant squamous epithelium. Clinical History Postmenopausal bleeding Microscopic Description Microscopic sections reviewed. Material Received EMB Gross Description Received in formalin labeled EMB is a 1.5 x 1.2 x 0.3 cm. aggregate of mucus, blood and multiple soft, congested and hemorrhagic, red-maroon tissue fragments. The specimen is submitted in toto in a single cassette labeled A. CEDS Copies To: Keely Townsend MD [address] [place] [phone] Dre Abebe MD [address] [place], [place] [address] [phone] ----- ------- Signed (signature on file) Peggy Davis 11/10/221431 ----- ------- END OF REPORT [facility] External Provider LAB BLO OD ORDERABLES Final Result Performing Organization Address [facility]/State/[facility] Co de Phone Number [facility] [address] [place] [phone] documented in this encounter Visit Diagnoses Diagnosis Hypercholesterolemia- Primary Pure hypercholesterolemia Vitamin D deficiency documented in this encounter Care Teams Credit Collector Relationship Specialty Start Date End Date Keely Townsend MD [address] [place] [address] PCP - General Family Medicine 11/15/19 Sudheer Ward, RAZ [address] [place] [address] Registered Nurse Family Medicine 01/07/25 Deepti Segovia 01/07/25 documented as of this encounter
--- OUTSIDE RECORDS SUMMARY | 2025-03-20 14:34 | XMS_ITS | Encounter Summary ---
Author Organization [employer] Address [address] [place] [address] Care Team Providers Care Doorperson Or Luggage Porter Name Role Phone Keely Townsend MD Primary Care Provider + Sudheer Ward RN Unavailable [phone] Deepti Segovia Unavailable Encounter Details Date Type Department Care Team (Latest Contact Info) Description 10/11/2021 Abstract C CONVERSIONS Dental, Provider, DDS Social History Tobacco [...] on file documented as of this encounter Visit Diagnoses Not on filedocumented in this encounter Care Teams Doorperson Or Luggage Porter Relationship Specialty Start Date End Date Keely Townsend MD [address] [place] [phone] PCP - General Family Medicine 11/15/19 Sudheer Ward, RN [address] [place] [phone] Registered Nurse Family Medicine 01/07/25 Deepti Segovia 01/07/25 documented as of this encounter
--- OUTSIDE RECORDS SUMMARY | 2025-03-20 14:34 | XMS_ITS | Clinical Summary ---
Author Organization [employer] Address [address] [place] [address] Care Team Providers Care Commissions Coordinator Name Role Phone Keely Townsend MD Primary Care Provider + Sudheer Ward RN Unavailable [phone] Deepti Segovia Unavailable Allergies No known active allergies Medications ibuprofen 800 MG tablet Take 1 tablet by mouth every 8 (eight) hours. Take 1 tablet by oral route 3 times every day with food 10/28/19 22 Active Blood Pressure kit Take by [facility] [place] (non-drug; combo) route every day Active Spacer/Aero-Hol ding Chambers (AeroChamber Z-Stat Plus) inhaler by Other [...] mouth in the morning. 09/28/19 23 Active Stimulant Laxative 8.6-50 MG tabletIndicatio ns:Slow transit constipation TAKE 1 TABLET BY MOUTH EVERY MORNING 90 tablet 3 07/04/20 23 Active Misc. Devices (Pulse Oximeter For Finger) miscIndications :COVID-19 Check your O2 sat every 4 hours. Call the office if < 88 % 1 each 12/11/19 24 Active albuterol (Ventolin HFA) 108 (90 Base) MCG/ACT inhaler Inhale 2 puffs every 4 (four) hours if needed for wheezing or shortness of breath. 18 g 3 05/14/20 24 025 Active fluticasone (Flonase) 50 MCG/ACT nasal spray INHALE 2 SPRAYS IN EACH NOSTRIL EVERY DAY 48 g 05/14/20 24 Active gabapentin (Neurontin) 100 MG capsule Take 1 capsule (100 mg) by mouth at bedtime. 90 capsule 3 08/09/19 25 026 Active calcium carbonate EX (Calcium Antacid Extra Strength) 750 MG chewable tabletIndicatio ns:Gastroesopha geal reflux disease without esophagitis Chew 1 tablet (750 mg) 2 times daily. 90 tablet 3 08/09/19 25 026 Active chlorthalidone (Hygroton) 25 MG tabletIndicatio ns:Primary hypertension TAKE 1 TABLET EVERY MORNING 90 tablet 1 09/24/19 25 Active fluticasone furoate (Arnuity Ellipta) 100 MCG/ACT inhaler Inhale 1 puff Once per day. Rinse mouth with water after use to reduce aftertaste and incidence of candidiasis. Do not swallow. 1 each 11 10/09/19 25 026 Active rosuvastatin (Crestor) 20 MG tabletIndicatio ns:Hypercholest erolemia Take 1 tablet (20 mg) by mouth at bedtime. 90 tablet 3 11/08/19 25 Active cetirizine (ZyrTEC) 10 MG tablet Take 1 tablet (10 mg) by mouth Once per day. 30 tablet 2 01/24/20 25 025 Active montelukast (Singulair) 10 MG tablet Take 1 tablet (10 mg) by mouth Once per day. 30 tablet 2 01/24/20 25 025 Active clotrimazole (Lotrimin) 1 % cream Apply topically 2 times daily for 28 days. 30 g 5 02/21/20 25 025 Active liver oil-zinc oxide (Desitin) 40 % ointment Apply topically if needed for irritation. 56 g 02/21/20 25 Active triamcinolone (Kenalog) 0.1 % creamIndication s:Irritant contact dermatitis due to detergent Apply topically if needed in the morning and at bedtime (pain and swelling). 30 g 2 02/21/20 25 Active methocarbamol (Robaxin) 500 MG tablet Take 1 tablet (500 mg) by mouth 2 times daily for 15 days. 30 tablet 02/21/20 25 Active amLODIPine (Norvasc) 10 MG tabletIndicatio ns:Primary hypertension TAKE 1 TABLET BY MOUTH EVERY MORNING 90 tablet 1 03/19/20 25 Active cyclobenzaprine (Flexeril) 10 MG tabletIndicatio ns:Trigger middle finger of right hand Take 1 tablet (10 mg) by mouth if needed in the morning and at bedtime for muscle spasms. 60 tablet 1 08/09/19 24 025 Discontinued(I neffective) triamcinolone (Kenalog) 0.1 % creamIndication s:Irritant contact dermatitis due to detergent Apply topically if needed in the morning and at bedtime (pain and swelling). 30 g 2 04/29/20 24 025 Discontinued(R eorder (will not trigger notification to Pharmacy)) amLODIPine (Norvasc) 10 MG tabletIndicatio ns:Primary hypertension TAKE 1 TABLET BY MOUTH EVERY MORNING 90 tablet 1 09/24/19 025 Discontinued amLODIPine (Norvasc) 10 MG tabletIndicatio ns:Primary hypertension Take 1 tablet (10 mg) by mouth in the morning. 90 tablet 1 09/24/19 025 Discontinued(M ed list cleanup (will not trigger notification to Pharmacy)) betamethasone valerate (Valisone) 0.1 % creamIndication s:Lichenoid keratosis Apply topically if needed in the morning and at bedtime (dryness). 30 g 2 11/08/19 25 025 Discontinued(T herapy completed) fluconazole (Diflucan) 150 MG tablet Take 1 tablet (150 mg) by mouth 1 (one) time for 1 dose. 1 tablet 02/21/20 25 025 carbamide peroxide (Debrox) 6.5 % otic solution Administer 5-10 drops into affected ear(s) 2 times daily for 4 days. 30 mL 02/21/20 25 025 metroNIDAZOLE (Flagyl) 500 MG tablet Take 1 tablet (500 mg) by mouth 2 times daily for 7 days. 14 tablet 02/26/20 25 025 Active Problems Problem Noted Date Diagnosed Date Trichomonal vaginitis 02/25/2025 Vulvovaginitis 02/20/2025 Assessment & Plan (02/20/2025 2:51 PM EDT): Most likely Deena infection. Advised to avoid vaginal douches or soaps, use plain water for vulvar hygiene. Rx fluconazole x 1+ clotrimazole cream + zinc oxide to vulvar area only Follow-up results of vaginal swab and treat accordingly Psychophysiological insomnia 08/09/2024 Assessment & Plan (08/09/2024 1:20 PM EST): Most likely related to anxiety, start Gabapentin at bedtime. Continue Prazosin and medication for anxiety. FU with mental health team. Class 1 obesity due to exces s [...] intensity exercise. Declined a referral to dietitian Sensation of plugged ear on both sides Assessment & Plan (02/20/2025 2:49 PM EDT): She has partial obstruction by cerumen, audition is normal. Use Debrox otic solution x 3 to 4 days and return to clinic as needed if symptoms persist, may need ear lavage Irritant contact dermatitis due to detergent 01/2024 Assessment & Plan (02/20/2025 2:51 PM EDT): No evidence of rash or irritation at this time She has symptoms mostly on her back, use triamcinolone cream combined with moisturizer cream once daily Assessment & Plan (04/29/2024 11:13 AM EDT): [...] resolved. Recent endometrial biopsy wnl FU with [employer] PRN Vitamin D deficiency 12/06/2022 Assessment & [...] EST): Rx Senna/colace Acute asthma 06/20/2022 Acute vaginitis 06/20/2022 Calcaneal spur 06/20/2022 Assessment & Plan (08/04/2022 9:49 PM EST): Podiatry appt done previously Chronic pain of right heel 06/20/2022 Heel pain 06/20/2022 COVID-19 06/20/2022 Dermoid cyst 06/20/2022 Hand pain 06/20/2022 Hypercholesterolemia 06/20/2022 Assessment & Plan (02/20/2025 2:00 PM EDT): She is tolerating Crestor well, will check lipids and LFTs prior to next appointment Reminded to continue low-fat and calorie diet, increase exercise and eat high fiber meals regularly Assessment & Plan (11/07/2024 5:53 PM EDT): Uncontrolled, Advised to take Crestor at bedtime instead of daily in the AM FU lipids in 3-6m Assessment & Plan (08/09/2024 1:18 PM EST): [...] fats. Hypertensive disorder 06/20/2022 Assessment & Plan (11/07/2024 5:28 PM EDT): Controlled. Compliant w/meds Continue Chlorthalidone + Amlodipine same dose, Counseled re low salt diet/increase moderate physical activity. Check home BP BIW and prn CP/BURGOS/MORALES Non smoking patient. Follow up in 3-4 months. Assessment & Plan (05/14/2024 3:13 PM EDT): [...] AM EDT): BP is at goal. Continue [id number] mg + amlodipine 10 mg and FU [...] (impaired fasting glucose) 06/20/2022 Assessment & Plan (02/20/2025 2:50 PM EDT): Will check labs today I have discussed with patient regarding increasing physicial activity and decrease calorie intake Check A1c q6-12m FU in 6m Assessment & Plan (09/13/2023 8:02 PM EST): [...] tylenool PRN reconsult PRN Vascular headache 06/20/2022 Visual impairment 06/20/2022 Headache disorder 06/20/2022 Resolved Problems Problem Noted Date Diagnosed Date Resolved Date Dermatitis contact, eyelid, left 11/07/2024 02/20/2025 Assessment & Plan (11/07/2024 5:52 PM EDT): Use betamethasone cream bid x 3d around eye lid, avoid mucosa. Start zyrtec and Singulair due to concomitant asthma and post nasal drip Angular blepharoconjunctivitis of left eye 11/07/2024 02/20/2025 Assessment & Plan (11/07/2024 5:45 PM EDT): Keep eyes clean and dry, can wash with baby shampoo Use erythromycin eye ointment tid x 1w Hypokalemia 08/09/2024 02/20/2025 Assessment & Plan (08/09/2024 1:24 PM EST): Most likely related to diuretics. Gave her information on potassium rich diet and she will eat at least one of these food items daily. Continue Chlorthalidone and other BP meds. FU BP in 3 months. Otalgia of left ear 05/14/2024 02/21/20 Assessment & Plan (05/14/2024 3:09 PM EDT): Unclear reason, no evidence of TM perforation. Refer to ENT. Otitis of left ear 04/29/2024 Acute otitis externa 06/20/2022 025 Dysuria 06/20/2022 02/20/2025 Vasomotor rhinitis 06/20/2022 Encounters Date Type Department Care Team Description 03/16/2025 Refill [facility] [address] [place] [phone] Keely Townsend MD Primary hypertension 03/05/2025 Patient Outreach [address] [address] Keely Townsend MD Care Coordination (C3 -[facility] telephone call outreach ) 02/25/2025 Results Follow-Up [address] [address] Keely Townsend MD Bacterial Vaginosis Panel, Chlamydia/N. Gonorrhoeae RNA, TMA, Vaginal 02/20/2025 11:15 AM EDT Office Visit [address] [address] Keely Townsend MD Vulvovaginitis (Primary Dx); Hypercholesterolemia; IFG (impaired fasting glucose); Sensation of plugged ear on both sides; Irritant contact dermatitis due to detergent; Encounter for immunization; Dermatitis 02/20/2025 Travel 02/19/[address] [address] Keely Townsend MD 02/06/2025 Patient Outreach [address] [address] Keely Townsend MD Care Management ([facility]- Initial assessment/enrollment (not completed)) 02/05/2025 Patient Outreach [address] [address] Keely Townsend MD Care Coordination (C3 CM-[facility] telephone call outreach) 01/22/2025 Refill [facility] [address] [place] [phone] Keely Townsend MD 01/15/2025 Patient Outreach [address] [address] Keely Townsend MD Care Coordination (/) 01/07/2025 Patient Outreach [address] [address] Keely Townsend MD Care Coordination 01/07/2025 Patient Outreach [facility] [address] [place] [address] Keely Townsend MD 01/07/2025 Patient Outreach [facility] [address] [place] [address] Keely Townsend MD Care Coordination ([facility]- chart review) 01/07/2025 Patient Outreach [facility] [address] [place] [address] Keely Townsend MD 01/06/2025 Orders Only [facility] External Provider, [facility] from Last 3 Months Immunizations Immunization Administration Dates Next Due Influenza Injectable Quadriv alant Preservative Free IIV4 MDCK 05/29/2023 Influenza injectable quadriv alent IIV4 with preservative 08/06/2019 Influenza injectable quadrivalent preservative f ree 08/04/2022,06/11/2021 Influenza, seasonal, injectable, preservative fr ee 04/25/2024 Moderna Covid-19 Vaccine 12+ 12/29/2020,12/02/19 21 Pneumococcal Conjugate PCV 20 02/20/2025 Tdap 08/06/2019 Zoster, Recombinant 06/30/2023,04/24/2023 Family History [...] Sign Reading Time Taken Comments Blood Pressure 122/82 02/20/2025 10:46 AM EDT Pulse 60 02/20/2025 10:46 AM EDT Temperature 36.3 C (97.3 F) 02/20/2025 10:46 AM EDT Respiratory Rate 20 02/20/2025 10:46 AM EDT Oxygen Saturation 95% 11/07/2024 11:11 AM EDT Inhaled Oxygen Concentration - - Weight 80.6 kg (177 lb 9.6 oz) 02/20/2025 10:46 AM EDT Height 157.5 cm (5' 2 ) 02/20/2025 10:46 AM EDT Body Mass Index 32.48 02/20/2025 10:46 AM EDT Plan of Treatment Health Maintenance Due Date Last Done Comments CT Colonography 1961 FIT DNA/Cologuard 1961 FIT 1960 FOBT 1960 HIV Screening 1960 Sigmoidoscopy 1960 RSV Patients and Patients Aged 60 years or older (1 - Risk 60-74 years 1-dose series) 2021 COVID-19 Vaccine ( season) 2024 12/29/2020, 12/01/2020 Influenza Vaccine (#1) 2025 , 05/29/2023, 08/04/2022, Additional history exists Mammogram 04/04/2025 04/04/2024, 0 01/2023, 03/23/2022, Additional history exists SDOH Screening 01/15/2026 01/15/2025 Alcohol/Substance Use Screening 02/20/2026 02/20/2025 Depression Screening 02/20/2026 02/20/2025, 02/21/20 25 Disability Screening 02/20/2026 02/20/2025 Tobacco Screening 02/20/2026 02/20/2025 Cervical Cancer Screening 10/14/2026 HPV/Cotest 10/14/2026 10/14/2021, 09/03/2019 Pap Smear 10/14/2026 10/14/2021 DTaP/Tdap/Td Vaccines (2 - Td or Tdap) 08/06/2029 08/06/2019 Colonoscopy 09/03/2029 09/03/2024 Colorectal Cancer Screening 09/03/2029 Lipid Panel 10/31/2029 10/31/2024, 01/2025, 02/28/2023, Additional history exists Hepatitis C Screening Completed 08/09/2022 Zoster Vaccines Completed 06/30/2023, 04/24/2023 Pneumococcal Vaccine: 50+ Years Completed 02/20/2025 HIB Vaccines Aged Out No longer eligi [...] patient's age to complete this topic Meningococcal B Vaccine Aged Out No l onger eligible based on patient's age to complete [...] Procedure Name Priority Date/Time Associated Diagnosis Comments CHLAMYDIA/N. GONORRHOEAE RNA, TMA, UROGENITAL Routine 02/20/2025 11:21 AM EDT Vulvovaginitis BACTERIAL VAGINOSIS PANEL Routine 02/20/2025 11:[address] CERVICAL SPINE WO CONTRAST Routine 01/06/2025 11:[address] HEAD WO CONTRAST Routine 01/06/2025 1 1:36 AM EDT LIPID PANEL WITH REFLEX TO DIRECT LDL Routine 10/31/2024 8:36 AM EDT Hypercholesterolemi a Class 1 obesity due to excess calories with serious comorbidity and body mass index (BMI) of 32.0 to 32.9 in adult COLONOSCOPY Routine 09/03/2024 1:25 PM EST BI MAMMOGRAM SCREENING TOMOSYNTHESIS BILATERAL Routine 04/04/2024 10:45 AM EDT HEPATITIS PANEL, GENERAL Routine 08/09/2022 8:16 AM EST Visit for preventive health examination PAP/HPV Routine 10/14/2021 from Last 3 Months or Most Recently Relevant to Health Maintenance Results * (ABNORMAL) Bacterial Vaginosis Panel (02/20/2025 11:21 AM EDT) TRICHOMONAS VAGINALIS DETECTION BY PCR DETECTED(A) Not Detect [facility] BACTERIAL VAGINOSIS DETECTION BY PCR NEGATIVE Negative [facility] Comment:The BV organism targ ets of the Xpert Xpress MVP test can becommensal in women; Xpert Xpress MVP positive results forbacterial vaginosis should be considered in conjunction withother clinical and patient information to determine thedisease status. Organisms that are not detected by the XpertXpress MVP test have also been reported to be associatedwith BV and aerobic vaginitis.The Xpert Xpress MVP test performance has not been evaluatedin patients under the age of 14. DEENA GROUP DETECTION BY PCR NOT DETECTED Not Detect [facility] Deena glab krusei PCR NOT DETECTED Not Detect [facility] Swab Vaginal structure / Unknown 02/20/2025 11:21 AM EDT 02/20/2025 12:57 PM EDT us Keely Townsend MD LAB MICROBIOLOGY - GENER AL ORDERABLES Final Result [facility] [address] [place] [address] [phone] * Chlamydia/N. Gonorrhoeae RNA, TMA, Vaginal (02/20/2025 11:21 AM EDT) CT PCR NOT DETECTED Not Detect. [facility] Comment:A not detected test result does not exclude the possibilityof infection because test results can be affected byimproper specimen collection, concurrent antibiotic therapy,or the number of organisms in the specimen which may bebelow the sensitivity of the test. As with many diagnostictests, results from the Xpert CT/NG assay should beinterpreted in conjunction with other laboratory andclinical data available to the clinician.Xpert CT/NG performance has not been evaluated in patientsless than 14 years of age. The assay should not be used forthe evaluationof suspected sexual abuse or for other medico-legalindications. Additional testing is recommended in anycircumstance when false positive or false negative resultscould lead to adverse medical, social or psychologicalconsequences. NG PCR NOT DETECTED Not Detect. [facility] Comment:A not detected test result does not exclude the possibilityof infection because test results can be affected byimproper specimen collection, concurrent antibiotic therapy,or the number of organisms in the specimen which may bebelow the sensitivity of the test. As with many diagnostictests, results from the Xpert CT/NG assay should beinterpreted in conjunction with other laboratory andclinical data available to the clinician.Xpert CT/NG performance has not been evaluated in patientsless than 14 years of age. The assay should not be used forthe evaluationof suspected sexual abuse or for other medico-legalindications. Additional testing is recommended in anycircumstance when false positive or false negative resultscould lead to adverse medical, social or psychologicalconsequences. Swab (Vaginal Swab) 02/20/2025 11:21 AM EDT 02/20/2025 12:57 PM EDT Keely Townsend MD LAB MICROBIOLOGY - GENER AL ORDERABLES Final Result Performing Organization Address City/State/[facility] Co de Phone Number [facility] [address] [place] [address] [phone] * CT Cervical Spine w/o Contrast (01/06/2025 11:36 AM EDT) Anatomical Region Laterality Modality Spine, C-spine Computed Tomogra phy 01/06/2025 11:3 6 AM EDT Narrative 01/06/2025 2:30 PM EDT [place] [address] [address] Scan Report Signed Patient: Holly Hicks R#: [id number] : 1960 Acct:[id number] Age/Sex: 64 / F ADM Date: 01/06/25 Loc: HO.ED Attending Dr: Ordering Physician: Wendy Dickerson Date of Service: 01/06/25 Procedure(s): CT cervical spine wo IV con Accession Number(s): [id number] cc: Keely Townsend MD; Wendy Dickerson Report Number: [id number]: Total DLP = 0.00 mGy-cm EXAMINATION: CT [...] Yifan Sahni MD 01/06/2025 02:27 PM EDT Dictated By: Yifan Frausto MD Signed By: <Electronically signed by Yifan Jones MD in OV> 01/06/25 1427 DD/ 1136 TD/TT: 01/06/25 1315 Contact Acid Plant Operator Helper: Procedure Note Donotuseinterpreter, Image - 01/06/[address] [address] [address] Scan Report Signed Patient: Coral Hicks R#: [id number] : 2Acct:[id number] Age/Sex: 64 / FADM Date: 01/06/25 Loc: HO.ED Attending Dr: Ordering Physician: Wendy Dickerson Date of Service: 01/06/25 Procedure(s): CT cervical spine wo IV con Accession Number(s): [id number] cc: Keely Townsend MD; Wendy Dickerson Report Number: [id number]: Total DLP = 0.00 mGy-cm EXAMINATION: CT [...] Yifan Sahni MD 01/06/2025 02:27 PM EDT Dictated By: Yifan Frausto MD Signed By: <Electronically signed by Yifan Jones MDin OV> 01/06/25 1427 DD/ 1136 TD/TT: 01/06/25 1315 Contact Acid Plant Operator Helper: [facility] External Provider IMG CT PROCEDURES Edited Result - Final * CT Head w/o Contrast (01/06/2025 11:36 AM EDT) Anatomical Region Laterality Modality Head, Neck Computed Tomogra phy 01/06/2025 11:3 6 AM EDT Narrative 01/06/2025 2:18 PM EDT [address] [address] [address] Scan Report Signed Patient: Holly Hicks R#: [id number] : 1960 Acct:[id number] Age/Sex: 64 / F ADM Date: 01/06/25 Loc: HO.ED Attending Dr: Ordering Physician: Wendy Dickerson Date of Service: 01/06/25 Procedure(s): CT head/brain wo IV con Accession Number(s): [id number] cc: Keely Townsend MD; Wendy Dickerson Report Number: [id number]: Total DLP = 1222.99 mGy-cm EXAMINATION: CT [...] Yifan Sahni MD 01/06/2025 02:15 PM EDT RP Dictated By: Yifan Frausto MD Signed By: <Electronically signed by Yifan Jones MD in OV> 01/06/25 1415 DD/ 1136 TD/TT: 01/06/25 1315 Contact Acid Plant Operator Helper: Procedure Note Donotuseinterpreter, Image - 01/06/[address] [address] [address] Scan Report Signed Patient: Coral Hicks R#: [id number] : [id number]:[id number] Age/Sex: 64 / FADM Date: 01/06/25 Loc: HO.ED Attending Dr: Ordering Physician: Wendy Dickerson Date of Service: 01/06/25 Procedure(s): CT head/brain wo IV con Accession Number(s): [id number] cc: Keely Townsend MD; Wendy Dickerson Report Number: [id number]: Total DLP = 1222.99 mGy-cm EXAMINATION: CT [...] Yifan Sahni MD 01/06/2025 02:15 PM EDT RP Dictated By: Yifan Frausto MD Signed By: <Electronically signed by Yifan Jones MDin OV> 01/06/25 1415 DD/ 1136 TD/TT: 01/06/25 1315 Contact Acid Plant Operator Helper: [facility] External Provider IMG CT PROCEDURES Edited Result - Final * (ABNORMAL) Lipid Panel with Reflex to Direct LDL (10/31/2024 8:36 AM EDT) Triglycerides 207(H) <150 mg/dL [facility] Comment:Desirable Triglyceri de: less than 150 mg/dLBorderline High Triglyceride 150-199 mg/dLHigh Triglyceride: 200-499 mg/dLVery High Triglyceride: greater than or equal to 5OO mg/dL Cholesterol 259(H) <200 mg/dL [facility] Comment:Desirable Cholestero l: less than 200 mg/dLBorderline High Cholesterol: 200-239 mg/dLHigh Cholesterol: greater than 239 mg/dL LDL Cholesterol Calculated 177(H) <100 mg/dL [facility] Comment:Desirable LDL: less than 100 mg/dLNear Optimal/Above Optimal LDL: 110- 129 mg/dLBorderline High LDL: 130-159 mg/dLHigh LDL: 160-189 mg/dLVery High LDL: greater than or equal to 190 mg/dL HDL Cholesterol 41 >40 mg/dL [facility] Comment:Desirable HDL: great er than 40 mg/dL Note: This HDL assay may give artificially low results in patients with liver disease. Blood 10/31/2024 8:36 AM EDT 10/31/2024 11:34 AM EDT Keely Townsend MD LAB BLOOD ORDERABLES Fin al Result [facility] [address] [place] [phone] [phone] * Hm Colonoscopy (09/03/2024 1:25 PM EST) Historical Provider HEALTH MAINTENANCE Final Result * BI Mammogram Screening Tomosynthesis Bilateral (04/04/2024 10:45 AM EDT) Anatomical Region Laterality Modality Breast Bilateral Mammography 04/04/2024 10:4 5 AM EDT Narrative 04/17/2024 7:50 PM EDT [address] [place] [address] Mammography Report Signed Patient: Holly Hicks R#: [id number] : 1960 Acct:[id number] Age/Sex: 63 / F ADM Date: 04/04/24 Loc: HO.MAMMO Attending Dr: Keely Townsend MD Ordering Physician: Keely Townsend MD Results: 1Ne gative Date of Service: 04/04/24 Follow Up: 1 Year From Orig ina Mammogram Procedure(s): MM tomosynthesis screening BI Accession Number(s): [id number] cc: Keely Townsend MD EXAMINATION: MM SCREENING [...] OV> 04/17/241946 DD/ 1045 TD/TT: 04/04/24 1101 Contact Acid Plant Operator Helper: Procedure Note Donotuseinterpreter, Image - [facility] [address] [place], [place] [address] Mammography Report Signed Patient: Coral Hicks R#: [id number] : 1960cct:[id number] Age/Sex: 63 / FADM Date: 04/04/24 Loc: HO.MAMMO Attending Dr: Keely Townsend MD Ordering Physician: Keely Townsend MDResults: 1Ne gative Date of Service: 04/04/24Follow Up: 1 Year From Orig inal Mammogram Procedure(s): MM tomosynthesis screening BI Accession Number(s): [id number] cc: Keely Townsend MD EXAMINATION: MM SCREENING [...] OV> 04/17/241946 DD/ 1045 TD/TT: 04/04/24 1101 Contact Acid Plant Operator Helper: Keely Townsend MD IMG BI PROCEDURES Edited Result - Final * (ABNORMAL) Hepatitis Panel, General (08/09/2022 8:16 AM EST) Hepatitis A Antibody Total REACTIVE( A) NON-REACT ZOYA [employer] [place] [employer] Comment: For additional information, please refer to http://[employer].Pixable/faq/GXD880 (This link is being provided for informational/ educational purposes only.) Hepatitis B Surface Antibody QL NON-REACT ZOYA NON-REACT ZOYA [employer] [place] [employer] Hepatitis B Surface Ag NON-REACT ZOYA NON-REACT ZOYA [employer] [place] [employer] Hepatitis B Core Antibody Total NON-REACT OZYA NON-REACT ZOYA [employer] [place] [employer] Hepatitis C Antibody NON-REACT ZOYA NON-REACT ZOYA [employer] [place] [employer] Index <0.02 <1.00 [employer] [place] [employer] Comment: HCV antibody was non-reactive. There is no laboratory evidence of HCV infection. In most cases, no further action is required. However, if recent HCV exposure is suspected, a test for HCV RNA (test code 26240) is suggested. For additional information please refer to http://[employer].Pix[employer]/faq/LYT57r2 (This link is being provided for informational/ educational purposes only.) 08/09/2022 8:16 AM EST 08/09/2022 8:16 AM EST Narrative [facility] - 08/13/2022 10:02 PM EST FASTING:YES FASTING: YES Keely Townsend MD LAB BLOOD ORDERABLES Fin al Result [facility] [address] [place] [address], [address], [place] [address] [employer] [facility] [address] [facility], (Nl2) [place] [address] * HM PAP/HPV (10/14/2021) Pap Smear 1. NILM 1. NILM HPV Not Detected Undetected, Indeterminat e, Quantitative , Not Detected Historical Provider MD HEALTH MAINTENANCE Final Result from Last 3 Months or Most Recently Relevant to Health Maintenance Insurance [facility] C3 [facility] FULL Care Teams Commissions Coordinator Relationship Specialty Start Date End Date Keely Townsend MD [address] [place] [address] PCP - General Family Medicine 11/15/19 Sudheer Ward, RAZ [address] [place] [address] Registered Nurse Family Medicine 01/07/25 Deepti Segovia 01/07/25
--- OUTSIDE RECORDS SUMMARY | 2025-03-20 14:34 | XMS_ITS | Encounter Summary ---
Author Organization [employer] Address [address] [facility] [address] [place] [address] Care Team Providers Care Paper Core Machine Operator Name Role Phone Keely Townsend MD Primary Care Provider + Sudheer Ward RN Unavailable [phone] Deepti Segovia Unavailable Encounter Details Date Type Department Care Team (Latest Contact Info) Description 07/20/2020 Abstract [facility] CONVERSIONS Dental, Provider, DDS Social [...] on filedocumented in this encounter Care Teams Paper Core Machine Operator Relationship Specialty Start Date End Date Keely Townsend MD [address] [place] [address] PCP - General Family Medicine 11/15/19 Sudheer Ward, RN [address] [place] [address] Registered Nurse Family Medicine 01/07/25 Deepti Segovia 01/07/25 documented as of this encounter
== END 2025-03-20 14:22 | disposition home or self-care (01) ==
LOC: HO.HGI 13:49
PROVIDERS: PCP Internal Medicine; Visit Provider Nurse Practitioner
DX: D12.6 Benign neoplasm of colon, unspecified (principal); K21.9 Gastro-esophageal reflux disease without esophagitis; K59.00 Constipation, unspecified
CPT/HCPCS: 99213

== ENCOUNTER → 2025-03-20 13:48 | Outpatient (BNVA) | payer MEDICAID, SELFPAY | PROVIDERS: PCP Internal Medicine; Visit Provider Nurse Practitioner | DX: K21.9 Gastro-esophageal reflux disease without esophagitis (principal); K58.1 Irritable bowel syndrome with constipation; D12.6 Benign neoplasm of colon, unspecified | CPT/HCPCS: 99212 ==

== ENCOUNTER 2025-04-23 08:40 | Outpatient (REF) | payer MEDICAID, SELFPAY ==
--- OUTSIDE RECORDS SUMMARY | 2025-04-23 09:12 | XMS_ITS | Encounter Summary ---
Author Organization [employer] [facility] Address [address] [facility] [address] [place] [address] Care Team Providers Care Inventory Coordinator Name Role Phone Keely Townsend MD Primary Care Provider + Sudheer Ward RN Unavailable [phone] Deepti Segovia Unavailable Encounter Details Date Type Department Care Team (Latest Contact Info) Description 07/20/2020 Abstract [facility] CONVERSIONS Dental, Provider, DDS Social History [...] Care Team (Late st Contact Info) Description 04/23/2025 9:30 AM EDT Clinical Support [facility] [address] [place] [address] Arrived 07/01/2025 10:30 AM EST Office Visit [facility] [address] [place] [address] Keely Townsend MD [address] [place] [address] [phone] documented as of this encounter Visit Diagnoses Not on filedocumented in this encounter Care Teams Inventory Coordinator Relationship Specialty Start Date End Date Keely Townsend MD [address] [place] [address] [phone] PCP - General Family Medicine 11/15/19 Sudheer Ward, RN [address] [place] [address] Registered Nurse Family Medicine 01/07/25 Deepti Segovia 01/07/25 documented as of this encounter
--- OUTSIDE RECORDS SUMMARY | 2025-04-23 09:12 | XMS_ITS ---
Author Organization [employer] Address [address] [facility] 7t [place] [address] Care Team Providers Care Route Rider Supervisor Name Role Phone Keely Townsend MD Primary Care Provider + Sudheer aWrd RN Unavailable [phone] Deepti Segovia Unavailable CM Complex Status:Outreach In Progress (Enrolling) Start date:01/07/2025 Enrollment reason:ADT Feed Overview ED- Pt went [facility] on 01/06[facility]25. Case Team Name Relationship Phone Sudheer Ward RN(Responsible Staff) Registered [facility] [phone] Continued Care and Services Coordination
--- OUTSIDE RECORDS SUMMARY | 2025-04-23 09:12 | XMS_ITS ---
Author Organization [employer] Address [address] [facility] 7t [place] [address] Care Team Providers Care Loan Expeditor Name Role Phone Keeyl Townsend MD Primary Care Provider + Sudheer Ward RN Unavailable [phone] Deepti Segovia Unavailable [facility] Complex Status:Enrolled (Active) Start date:01/07/2025 Enrollment date:01/15/2025 Enrollment reason:ADT Feed Overview ED- Pt went [facility] on 01/06/25. Case Team Name Relationship Phone Deepti Segovia(Responsible Staff) Continued Care and Services Coordination
--- OUTSIDE RECORDS SUMMARY | 2025-04-23 09:12 | XMS_ITS | Clinical Summary ---
Author Organization [employer] Address [address] [facility] 7t [place] [address] Care Team Providers Care Bookkeeping Teacher Name Role Phone Keely Townsend MD Primary Care Provider + Sudheer Ward RN Unavailable [phone] Deepti Segovia Unavailable Allergies No known active allergies Medications ibuprofen 800 MG tablet Take 1 tablet by mouth every 8 (eight) hours. Take 1 tablet by oral route 3 times every day with food 10/28/19 22 Active Blood Pressure kit Take by misc. (non-drug; combo) route every day Active prazosin (Minipress) 2 MG capsule TAKE [...] 88 % 1 each 12/11/19 24 Active fluticasone (Flonase) 50 MCG/ACT nasal spray [...] 90 tablet 3 08/09/19 25 026 Active fluticasone furoate (Arnuity Ellipta) 100 MCG/ACT inhaler Inhale 1 puff Once per day. Rinse mouth with water after use to reduce aftertaste and incidence of candidiasis. Do not swallow. 1 each 10/09/19 25 Active rosuvastatin (Crestor) 20 MG tabletIndicatio ns:Hypercholest erolemia Take 1 tablet (20 mg) by mouth at bedtime. 90 tablet 3 11/08/19 25 Active liver oil-zinc oxide (Desitin) 40 % [...] MORNING 90 tablet 1 03/19/20 25 Active acetaminophen (Tylenol) 500 MG tablet Take 2 tablets (1,000 mg) by mouth every 6 (six) hours if needed for moderate pain or fever for up to 25 doses. 40 tablet 04/09/20 25 Active albuterol (Ventolin HFA) 108 (90 Base) MCG/ACT inhaler Inhale 2 puffs every 4 (four) hours if needed for wheezing or shortness of breath. 18 g 3 04/09/20 25 026 Active Spacer/Aero-Hol ding Chambers (AeroChamber Z-Stat Plus) inhaler 1 each by Other route every 4 (four) hours if needed (cough, wheezing). Use with inhaler 1 each 04/09/20 25 Active Nirmatrelvir&Ri tonavir 300/100 (Paxlovid, 300/100,) 20 x 150 MG & 10 x 100MG tablet therapy pack Take 300 mg by mouth 2 times daily. Take 3 tablets 2x/day for 5 days 30 each 04/09/20 25 Active chlorthalidone (Hygroton) 25 MG tabletIndicatio ns:Primary hypertension TAKE 1 TABLET BY MOUTH EVERY MORNING 90 tablet 1 04/15/20 25 Active cetirizine (ZyrTEC) 10 MG tablet TAKE 1 TABLET BY MOUTH EVERY MORNING 90 tablet 1 04/21/20 25 Active montelukast (Singulair) 10 MG tablet TAKE 1 TABLET BY MOUTH EVERY MORNING 90 tablet 1 04/21/20 25 Active Spacer/Aero-Hol ding Chambers (AeroChamber Z-Stat Plus) inhaler by Other route. Use with inhaler 025 Discontinued(R eorder (will not trigger notification to Pharmacy)) albuterol (Ventolin HFA) 108 (90 Base) MCG/ACT inhaler Inhale 2 puffs every 4 (four) hours if needed for wheezing or shortness of breath. 18 g 3 05/14/20 24 025 Discontinued(R eorder (will not trigger notification to Pharmacy)) chlorthalidone (Hygroton) 25 MG tabletIndicatio ns:Primary hypertension TAKE 1 TABLET EVERY MORNING 90 tablet 1 09/24/19 25 025 Discontinued cetirizine (ZyrTEC) 10 MG tablet Take 1 tablet (10 mg) by mouth Once per day. 30 tablet 2 01/24/20 25 025 Discontinued montelukast (Singulair) 10 MG tablet Take 1 tablet (10 mg) by mouth Once per day. 30 tablet 2 01/24/20 25 025 Discontinued carbamide peroxide (Debrox) 6.5 % otic solution Administer 5 drops into the right ear 2 times daily for 4 days. 15 mL 04/09/20 25 025 Active Problems Problem Noted Date [...] resolved. Recent endometrial biopsy wnl FU with [employer] [facility] Vitamin D deficiency 12/06/2022 Assessment & [...] reduction Visit for preventive health examination 08/04/19 23 Assessment & Plan (08/09/2024 11:27 AM EST): [...] AM EDT): BP is at goal. Continue [id number] mg + amlodipine 10 mg and FU [...] Encounters Date Type Department Care Team Description 04/23/2025 Travel 04/22/2025 Patient Outreach [facility] [address] [place] [address] Keely Townsend MD 04/20/2025 Refill [facility] [address] [place], [place] [phone] Keely Townsend MD 04/13/2025 Refill [facility] [address] [place] [address] Keely Townsend MD Primary hypertension 04/09/2025 3:40 PM EDT Office Visit [facility] [address] [place] [address] Rafi Meeks MD COVID-19 (Primary Dx); Hypertension, unspecified type; Bilateral impacted cerumen 04/09/2025 Travel 04/08/2025 Patient Outreach [address] [address] Keely Townsend MD Care Coordination (C3 -[facility] telephone call outreach//) 04/08/2025 Patient Outreach [address] [address] Keely Townsend MD 04/07/2025 Patient Outreach [address] [address] Keely Townsend MD Care Management (C3- initial assessment/enrollment) 03/16/2025 Refill [facility] [address] [place] [address] Keely Townsend MD Primary hypertension 03/05/2025 Patient Outreach [address] [address] Keely Townsend MD Care Coordination (C3 -[facility] telephone call outreach ) 02/25/2025 Results Follow-Up [address] [address] Keely Townsend MD Bacterial Vaginosis Panel, Chlamydia/N. Gonorrhoeae RNA, TMA, Vaginal 02/20/2025 11:15 AM EDT Office Visit [address] [address] Keely Townsend MD Vulvovaginitis (Primary Dx); Hypercholesterolemia; IFG (impaired fasting glucose); Sensation of plugged ear on both sides; Irritant contact dermatitis due to detergent; Encounter for immunization; Dermatitis 02/20/2025 Travel 02/19/[address] [address] Keely Townsend MD 02/06/2025 Patient Outreach [facility] [address] [place] [address] Keely Townsend MD Care Management (C3CM- Initial assessment/enrollment (not completed)) 02/05/2025 Patient Outreach [facility] [address] [place] [address] Keely Townsend MD Care Coordination (C3 CM-w Deepti Segovia telephone call outreach) 01/22/2025 Refill [facility] [address] [place] [address] Keely Townsend MD from Last 3 Months Immunizations Immunization Administration [...] Sign Reading Time Taken Comments Blood Pressure 146/91 04/09/2025 3:07 PM EDT Pulse 83 04/09/2025 3:07 PM EDT Temperature 37.3 C (99.1 F) 04/09/2025 3:07 PM EDT Respiratory Rate 20 04/09/2025 3:07 PM EDT Oxygen Saturation 97% 04/09/2025 3:07 PM EDT Inhaled Oxygen Concentration - - Weight 78.8 kg (173 lb 12.8 oz) 04/09/2025 3:07 PM EDT Height 157.5 cm (5' 2 ) 02/20/2025 10:4 6 AM EDT Body Mass Index 31.79 02/20/2025 10:46 AM EDT Plan of Treatment Upcoming Encounters Date Type Department Care Team (Late st Contact Info) Description 04/23/2025 9:30 AM EDT Clinical Support [address] [address] Arrived 07/01/2025 10:30 AM EST Office Visit [facility] [address] [place] [address] Keely Townsend MD [address] [place] [address] Health Maintenance Due Date Last Done Comments CT Colonography 1961 FIT DNA/Cologuard 1960 FIT 1960 FOBT 1960 HIV Screening 1960 Sigmoidoscopy 1960 RSV Patients and Patients Aged 60 years or older (1 - Risk 60-74 years 1-dose series) 2021 COVID-19 Vaccine ( season) 2025 12/29/2020, 12/01/2020 Influenza Vaccine (#1) 2025 , 05/29/2023, 08/04/2022, Additional history exists Mammogram 04/04/2025 04/04/2024, 01/2023, 03/23/2022, Additional history exists SDOH Screening 01/15/2026 01/15/2025 Alcohol/Substance Use Screening 02/20/2026 02/20/2025 Depression Screening 02/20/2026 02/20/2025, 02/21/20 25 Disability Screening 02/20/2026 02/20/2025 Tobacco Screening 04/09/2026 04/09/2025 Cervical Cancer Screening 10/14/2026 HPV/Cotest 10/14/2026 10/14/2021, [...] Author Blood Pressure < 140/90 Blood Pressure 146/91(2024 3:07 PM EDT) Radha Fox Patient will improve adherence to medication regimen, goal <2 missed doses per week General No Radha Akbar Procedures Procedure Name Priority Date/Time Associated Diagnosis Comments POCT INFLUENZA B (ID NOW RAPID MOLECULAR) Routine 04/09/2025 3:18 PM EDT COVID-19 POCT INFLUENZA A (ID NOW RAPID MOLECULAR) Routine 04/09/2025 3:18 PM EDT COVID-19 POCT RAPID STREP A Routine 04/09/2025 3: 10 PM EDT COVID-19 POCT RAPID COVID ANTIGEN Routine 04/09/2025 3:10 PM EDT COVID-19 CHLAMYDIA/N. GONORRHOEAE RNA, TMA, UROGENITAL Routine 02/20/2025 11:21 AM EDT Vulvovaginitis BACTERIAL VAGINOSIS PANEL Routine 02/20/2025 11:21 AM EDT Vulvovaginitis LIPID PANEL WITH REFLEX TO DIRECT LDL [...] Relevant to Health Maintenance Results * Influenza B (ID NOW Rapid Molecular) (04/09/2025 3:18 PM EDT) [facility] Influenza B Negative Negative, Indeterminate [facility] Swab 04/09/2025 3:18 PM EDT us Rafi Meeks MD POINT OF CARE TEST ENTER/EDIT OR DERABLES Final Result Performing Organization Address [facility]/ZIP Co de Phone Number [facility] [address] [place] [phone] * Influenza A (ID NOW Rapid Molecular) (04/09/2025 3:18 PM EDT) [facility] Influenza A Negative Negative, Indeterminate [facility] Swab 04/09/2025 3:18 PM EDT us Rafi Meeks MD POINT OF CARE TEST ENTER/EDIT OR DERABLES Final Result Performing Organization Address [facility] Co de Phone Number [facility] [address] [place] [phone] * (ABNORMAL) POCT Rapid COVID Ag (04/09/2025 3:10 PM EDT) [facility] Rapid COVID Ag Positive Swab 04/09/2025 3:10 PM EDT Rafi Meeks MD POINT OF CARE TEST ENTER/EDIT OR DERABLES Final Result * POCT rapid strep A manually resulted (04/09/2025 3:10 PM EDT) [facility] Rapid Strep A Screen Negative Negative, None Detected Swab 04/09/2025 3:10 PM EDT Rafi Meeks MD POINT OF CARE TEST ENTER/EDIT OR DERABLES Final Result * (ABNORMAL) Bacterial Vaginosis Panel (02/20/2025 11:21 AM EDT) [facility] TRICHOMONAS VAGINALIS DETECTION BY PCR DETECTED(A) Not Detect [facility] BACTERIAL VAGINOSIS DETECTION BY PCR NEGATIVE Negative [facility] Comment:The BV organism targ ets [...] DETECTION BY PCR NOT DETECTED Not Detect [facility] Deena glab krusei PCR NOT DETECTED Not Detect [facility] Swab Vaginal structure / Unknown 02/20/2025 11:21 AM EDT 02/20/2025 12:57 PM EDT Keely Townsend MD LAB MICROBIOLOGY - GENER AL ORDERABLES Final Result [facility] [address] [place] [phone] * Chlamydia/N. Gonorrhoeae RNA, TMA, Vaginal (02/20/2025 11:21 AM EDT) [facility] CT PCR NOT DETECTED Not Detect. [facility] Comment:A not detected test result [...] psychologicalconsequences. NG PCR NOT DETECTED Not Detect. [facility] Comment:A not detected test result [...] MICROBIOLOGY - GENER AL ORDERABLES Final Result [facility] [address] [place] [phone] * (ABNORMAL) Lipid Panel with Reflex to Direct LDL (10/31/2024 8:36 AM EDT) Triglycerides 207(H) <150 mg/dL [facility] Comment:Desirable Triglyceri de: less than 150 mg/dLBorderline High Triglyceride 150-199 mg/dLHigh Triglyceride: 200-499 mg/dLVery High Triglyceride: greater than or equal to 5OO mg/dL Cholesterol 259(H) <200 mg/dL [facility] Comment:Desirable Cholestero l: less than 200 mg/dLBorderline High Cholesterol: 200-239 mg/dLHigh Cholesterol: greater than 239 mg/dL LDL Cholesterol Calculated 177(H) <100 mg/dL [facility] Comment:Desirable LDL: less than 100 mg/dLNear Optimal/Above Optimal LDL: 110- 129 mg/dLBorderline High LDL: 130-159 mg/dLHigh LDL: 160-189 mg/dLVery High LDL: greater than or equal to 190 mg/dL HDL Cholesterol 41 >40 mg/dL [facility] Comment:Desirable HDL: great er than 40 mg/dL Note: This HDL assay may give artificially low results in patients with liver disease. Blood 10/31/2024 8:36 AM EDT 10/31/2024 11:34 AM EDT Keely Townsend MD LAB BLOOD ORDERABLES Fin al Result [facility] [address] [place] [address] [phone] * Hm Colonoscopy (09/03/2024 1:25 PM EST) us Historical Provider HEALTH MAINTENANCE Final Result * BI Mammogram Screening Tomosynthesis Bilateral (04/04/2024 10:45 AM EDT) Anatomical Region Laterality Modality Breast Bilateral Mammography 04/04/2024 10:4 5 AM EDT Narrative 04/17/2024 7:50 PM EDT [facility] [address] [place] [address] Mammography Report Signed Patient: Holly Hicks#: [id number] : 1960 Acct:[id number] Age/Sex: 63 / F ADM Date: 04/04/24 Loc: HO.MAMMO Attending Dr: Keely Townsend MD Ordering Physician: Keely Townsend MD Results: 1Ne gative Date of Service: 04/04/24 Follow Up: 1 Year From Orig inal Mammogram Procedure(s): MM tomosynthesis screening BI Accession Number(s): [id number] cc: Keely Townsend MD EXAMINATION: MM SCREENING [...] OV> 04/17/241946 DD/ 1045 TD/TT: 04/04/24 1101 Supervisor Shearing: Procedure Note Donotuseinterpreter, Image - 04/17/2024 [facility] [address] [place] [address] Mammography Report Signed Patient: Coral Hicks R#: [id number] : 2Acct:[id number] Age/Sex: 63 / FADM Date: 04/04/24 Loc: MAMMO Attending Dr: Keely Townsend MD Ordering Physician: Keely Townsend MDResults: 1Ne gative Date of Service: 04/04/24Follow Up: 1 Year From Orig ina Mammogram Procedure(s): MM tomosynthesis screening BI Accession Number(s): [id number] cc: Keely Townsend MD EXAMINATION: MM SCREENING [...] OV> 04/17/241946 DD/ 1045 TD/TT: 04/04/24 1101 Supervisor Shearing: Keely Townsend MD [facility] PROCEDURES Edited Result - Final * (ABNORMAL) Hepatitis Panel, General (08/09/2022 8:16 AM EST) Hepatitis A Antibody Total REACTIVE( A) NON-REACT ZOYA We Comment: For additional information, please refer to http://education.[facility]/faq/YML942 (This link is being provided for informational/ educational purposes only.) Hepatitis B Surface Antibody QL NON-REACT ZOYA NON-REACT ZOYA [facility] Hepatitis B Surface Ag NON-REACT ZOYA NON-REACT ZOYA [employer] [place] [employer] Hepatitis B Core Antibody Total NON-REACT ZOYA NON-REACT ZOYA [employer] [place] [email or web address] Hepatitis C Antibody NON-REACT ZOYA NON-REACT ZOYA [employer] [place] [email or web address] Index <0.02 <1.00 [employer] [place] [email or web address] Comment: HCV antibody was non-reactive. There is no laboratory evidence of HCV infection. In most cases, no further action is required. However, if recent HCV exposure is suspected, a test for HCV RNA (test code 11151) is suggested. For additional information please refer to http://education.[facility]/faq/HMX84p0 (This link is being provided for informational/ educational purposes only.) 08/09/2022 8:16 AM EST 08/09/2022 8:16 AM EST Narrative [facility] - 08/13/2022 10:02 PM EST FASTING:YES FASTING: YES Keely Townsend MD LAB BLOOD ORDERABLES Fin al Result [facility] [address] [facility], [place] [address] [employer] [email or web address] [address] [facility], ([address]) [place] [address] * PAP/HPV (10/14/2021) Pap Smear 1. NILM 1. NILM HPV Not Detected Undetected, Indeterminat e, Quantitative , Not Detected Historical Provider HEALTH MAINTENANCE Final Result from Last 3 Months or Most Recently Relevant to Health Maintenance Insurance [facility] C3 HSN FULL Care Teams Bookkeeping Teacher Relationship Specialty Start Date End Date Keely Townsend MD [address] [place] [phone] PCP - General Family Medicine 11/15/19 Sudheer Ward, RAZ [address] [place] [phone] Registered Nurse Family Medicine 01/07/25 Deepti Segovia 01/07/25
--- OUTSIDE RECORDS SUMMARY | 2025-04-23 09:12 | XMS_ITS | Encounter Summary ---
Author Organization [employer] Address [address] [facility] 7t [place] [address] Care Team Providers Care Hall Porter Name Role Phone Keely Townsend MD Primary Care Provider + Sudheer Ward RN Unavailable [phone] Deepti Segovia Unavailable Encounter Details Date Type Department Care Team (Late st Contact Info) Description 04/22/2025 Patient Outreach [facility] [address] [place] [address] Keely Townsend MD [address] [place], [place] [phone] Social History Tobacco Use Types Packs/Day Years [...] Description 04/23/2025 9:30 AM EDT Clinical Support [facility] [address] [place] [phone] Arrived 07/01/2025 10:30 AM EST Office Visit [facility] [address] [place] [phone] Keely Townsend MD [address] [place] [phone] documented as of this encounter Goals Goal Patient Goal Type Associated Problems Recent Progress Patient-Stated? Author Blood Pressure < 140/90 Blood Pressure 146/91(2024 3:07 PM EDT) No Radha Akbar Patient will improve adherence to medication regimen, goal <2 missed doses per week General No Radha Akbar documented as of this encounter Visit Diagnoses Not on filedocumented in this encounter Additional Health Concerns Assessment Noted Time PHQ-9 Depression Total Score: 0 02/21/20 25 11:00 AM EDT documented as of this encounter Care Teams Hall Porter Relationship Specialty Start Date End Date Keely Townsend MD [address] [place] [phone] PCP - General Family Medicine 11/15/19 Sudheer Ward, RN [address] [facility] [place] [address] Registered Nurse Family Medicine 01/07/25 Deepti Segovia 01/07/25 documented as of this encounter
--- OUTSIDE RECORDS SUMMARY | 2025-04-23 09:12 | XMS_ITS | Encounter Summary ---
Author Organization [employer] Address 75 [facility] 7t [place] [address] Care Team Providers Care It Sales Consultant Name Role Phone Keely Townsend MD Primary Care Provider + Sudheer Ward RN Unavailable [phone] Deepti Segovia Unavailable Encounter Details Date Type Department Care Team (Latest Contact Info) Description 08/16/2022 Orders Only [facility] MEDICINE [address] [place] [address] Keely Townsend MD [address] [place], [place] [phone] Hypercholesterolemia (Primary Dx); Vitamin D deficiency Social [...] Description 04/23/2025 9:30 AM EDT Clinical Support [facility] [address] [place] [address] Arrived 07/01/2025 10:30 AM EST Office Visit [facility] MED[facility]INE [address] [place], [place] [phone] Keely Townsend MD [address] [place] [address] documented as of this encounter Procedures Procedure [...] (CHERRY) (03/21/2023 1:30 PM EDT) IDNOW SERIAL# [id number] [facility] COVID-19 TEST Negative Negative [facility] COVID-19 NOTE See Note [facility] Comment: Results are for the identification of SARS-CoV2 RNA. TheSARS-CoV2 RNA is generally detectable in respiratory samplesduring the acute phase of infection. Positive results areindicative of the presence of SARS-CoV-2 RNA; clinicalcorrelation with patient history and other diagnosticinformation is necessary to determine patient infectionstatus. Positive results do not rule out bacterial infectionor co- infection with other viruses.Testing facilities within the [facility] and itsterritories are required to report all [...] 1:30 PM EDT 03/21/2023 1:31 PM EDT us [facility] Exter nal Provider LAB MOLECULAR DIAGNOSTICS ORDERABLES Final Result [facility] [address] [place] [phone] * Influenza A B2 ID NOW (Cherry) (03/21/2023 1:30 PM EDT) IDNOW SERIAL# [id number] [facility] Influenza A Negative Negative [facility] Influenza B2 Negative Negative [facility] Influenza A B2 Note See Note [facility] Comment:The Cherry ID NOW In [...] 1:30 PM EDT 03/21/2023 1:31 PM EDT [facility] Exter nal Provider LAB MICROBIOLOGY - GENERAL ORDERABLES Final Result [facility] [address] [place] [address] [phone] * Gastrointestinal panel (03/21/2023 11:48 AM EDT) Campylobacter Not Detected Not Detect. [facility] Plesiomonas shigelloides Not Detected Not Detect. [facility] Salmonella Not Detected Not Detect. [facility] Vibrio Not Detected Not Detect. [facility] Vibrio cholerae Not Detected Not Detect. [facility] YERSINIA ENTEROCOLITICA Not Detected Not Detect. [facility] Enteroaggregative E. coli (EAEC) Not Detected Not Detect. [facility] Enteropathogenic E. coli (EPEC) Not Detected Not Detect. [facility] Enterotoxigenic E. coli (ETEC) lt/st Not Detected Not Detect. [facility] Shiga-like toxin-producing E. coli (STEC) stx1/stx2 Not Detected Not Detect. [facility] E coli O157 Not applicable Not Detect. [facility] Comment:E. coli containing t he O157 antigen are a subset ofShiga-like toxin- producing E. coli (STEC). Shigella/Enteroinvasive E. coli (EIEC) Not Detected Not Detect. [facility] Cryptosporidium Not Detected Not Detect. [facility] Cyclospora cayetanensis Not Detected Not Detect. [facility] Entamoeba histolytica Not Detected Not Detect. [facility] Giardia lamblia Not Detected Not Detect. [facility] Adenovirus F 40/41 Not Detected Not Detect. [facility] Astrovirus Not Detected Not Detect. [facility] Norovirus GI/GII Not Detected Not Detect. [facility] Rotavirus A Not Detected Not Detect. [facility] Sapovirus Not Detected Not Detect. [facility] Comment: All results must be [...] assay is performed by Multiplexed PCR, utilizing TAXI5.pl Array. 03/21/2023 11:4 8 AM EDT 03/21/2023 12:13 PM EDT us [facility] Exter nal Provider LAB MICROBIOLOGY - GENERAL ORDERABLES Final Result [facility] [address] [place] [phone] * CDiff Gene PCR (03/21/2023 11:48 AM EDT) CDiff Gene PCR NEGATIVE Negative [facility] Comment:If C. difficile stro ngly suspected despite one negativetest, a second test may be sent vs. empiric treatment forC. difficile infection. 03/21/2023 11:4 8 AM EDT 03/21/2023 12:13 PM EDT [facility] Exter nal Provider LAB BODY FLUIDS AND STOOLS ORDERABLES Final Result Performing Organization Address [facility]/ZIP Co de Phone Number [facility] [address] [place] [address] [phone] * Urinalysis w/reflex microscopic (03/21/2023 11:48 AM EDT) Color Urine Yellow [facility] Appearance Urine Cloudy [facility] PH 5.5 5.0 - 9.0 [facility] Glucose Urine UA Negative Negative mg/dL [facility] Urine Blood Negative Negative [facility] Specific [place] - Urine 1.025 1.005 - 1.025 [facility] Urine Protein Trace Neg-Trace mg/dL [facility] Urine Ketones Negative Negative mg/dL [facility] Nitrite Urine Negative Negative [facility] Leukocyte Esterase Urine Negative Negative [facility] 03/21/2023 11:4 8 AM EDT 03/21/2023 12:13 PM EDT Narrative [facility] - 03/21/2023 12:19 PM EDT Urine, Clean Catch [facility] External Provider LAB URI NE ORDERABLES Final Result Performing Organization Address [facility]/ZIP Co de Phone Number [facility] [address] [place] [phone] * Lipase (03/21/2023 11:02 AM EDT) Lipase 29 8 - 78 U/L [facility] 03/21/2023 11:0 2 AM EDT 03/21/2023 11:10 AM EDT us Generic External Data Provider LAB BLOOD ORDERAB LES Final Result Performing Organization Address City/[facility]/ZIP Co de Phone Number [facility] [address] [place] [address] [phone] * Basic Metabolic Panel (03/21/2023 11:02 AM EDT) Sodium 142 135 - 145 mmol/L [facility] Potassium 3.5 3.3 - 5.1 mmol/L [facility] Chloride 108 96 - 108 mmol/L [facility] Carbon Dioxide 22 22 - 29 mmol/L [facility] Anion Gap 16 12 - 20 [facility] Urea Nitrogen (BUN) 11 9 - 16 mg/dL [facility] Creatinine, Serum 0.78 0.5 - 1.4 mg/dL [facility] Creatinine Clr Calc Pharmacy 75.6 [facility] Comment:Provided height and weight: 157.48 cm,83.007 kg.eGFR (calculated from the MDRD study equation) and eCrCl(calculated from the Cockcroft-Gault equation) are based ondifferent parameters and may not yield comparable results.If eCrCl result is absurd, please check patient'sheight/weight. Estimated Glomerular Filt Rate >60 [facility] Comment:NOTE: For -Am erican individuals, multiply the result by 1.210.Chronic Kidney Disease: Estimated GFR < 60 mL/min/1.69s8Yrylrc Kidney Disease: Estimated GFR < 15 mL/min/1.73m2 Glucose 109 60 - 115 mg/dL [facility] Calcium 10.0 8.4 - 10.2 mg/dL [facility] 03/21/2023 11:0 2 AM EDT 03/21/2023 11:10 AM EDT us Generic External Data Provider LAB BLOOD ORDERAB LES Final Result Performing Organization Address City/[facility]/ZIP Co de Phone Number [facility] [address] [place] [phone] * (ABNORMAL) Hepatic Function Panel (03/21/2023 11:02 AM EDT) Pathologist [facility] Bilirubin, Total 0.8 0.0 - 1.0 mg/dL [facility] Bilirubin, Direct 0.3 0.0 - 0.5 mg/dL [facility] Aspartate Amino Transferase 24 5 - 31 U/L [facility] Alanine Aminotransferase 22 0 - 31 U/L [facility] Total Protein 8.4(H) 6.5 - 8.0 g/dL [facility] Albumin Level 4.5 3.5 - 5.0 g/dL [facility] Alkaline Phosphatase 86 39 - 117 U/L [facility] 03/21/2023 11:0 2 AM EDT 03/21/2023 11:10 AM EDT [facility] External Provider LAB BLO OD ORDERABLES Final Result [facility] [address] [place] [phone] [phone] * CBC auto differential (03/21/2023 11:02 AM EDT) [facility] White Blood Count 8.6 4.8 - 10.8 X10*3/uL [facility] Red Blood Count 4.76 4.20 - 5.50 X10*6/uL [facility] Hemoglobin 14.7 12.0 - 16.0 g/dl [facility] Hematocrit 44.3 37.0 - 47.0 % [facility] Mean Corpuscular Volume 93.1 80.0 - 98.0 fL [facility] Mean Corpuscular Hemoglobin 30.9 27.0 - 33.0 pg [facility] Mean Corpuscular HGB Conc 33.2 31.0 - 35.0 g/dl [facility] Red Cell Distribution Width 13.0 11.0 - 16.0 % [facility] Platelet Count 296 160 - 400 X10*3/uL [facility] Mean Platelet Volume 10.2 9.4 - 12.3 fL [facility] Neutrophils Percent Auto 55.5 45 - 73 % [facility] Imm Gran Pct Auto 0.2 0.0 - 0.4 % [facility] Lymphocytes Percent Auto 30.0 20 - 40 % [facility] Monocytes Percent Auto 10.0 2 - 11 % [facility] Eosinophils Percent Auto 3.8 0 - 4 % [facility] Basophils Percent Auto 0.5 0 - 2 % [facility] NRBC Pct Auto 0.0 0.0 - 0.2 /100WBC [facility] Neutrophils Absolute Auto 4.8 2.0 - 8.3 x10*3/uL [facility] Imm Gran Abs Auto 0.02 0.00 - 0.03 X10*3/uL [facility] Lymphocytes Absolute Auto 2.6 1.2 - 4.9 X10*3/uL [facility] Monocytes Absolute Auto 0.9 0.1 - 1.2 X10*3/uL [facility] Eosinophils Absolute Auto 0.3 0.0 - 0.4 X10*3/uL [facility] Basophils Absolute Auto 0.0 0.0 - 0.2 X10*3/uL [facility] NRBC Abs Auto 0.000 0.0 - 0.012 X10*3/uL [facility] 03/21/2023 11:0 2 AM EDT 03/21/2023 11:10 AM EDT us [facility] External Provider LAB BLO OD ORDERABLES Final Result [facility] [address], [place] [phone] * Lipid Panel, Standard (02/28/2023 8:17 AM EDT) Triglycerides 157 mg/dL [facility] Comment:Desirable Triglyceri de: less than 150 mg/dLBorderline High Triglyceride 150-199 mg/dLHigh Triglyceride: 200-499 mg/dLVery High Triglyceride: greater than or equal to 5OO mg/dL Cholesterol 186 mg/dL [facility] Comment:Desirable Cholestero l: less than 200 mg/dLBorderline High Cholesterol: 200-239 mg/dLHigh Cholesterol: greater than 239 mg/dL LDL Cholesterol Calculated 110 mg/dl [facility] Comment:Desirable LDL: less than 100 mg/dLNear Optimal/Above Optimal LDL: 110- 129 mg/dLBorderline High LDL: 130-159 mg/dLHigh LDL: 160-189 mg/dLVery High LDL: greater than or equal to 190 mg/dL HDL Cholesterol 45 mg/dL [facility] Comment:Desirable HDL: great er than 40 mg/dL Note: This HDL assay may give artificially low results in patients with liver disease. 02/28/2023 8:17 AM EDT 02/28/2023 11:24 AM EDT Keely Townsend MD LAB BLOOD ORDERABLES Fin al Result [facility] [address] [place] [address] [phone] * Hematoxylin and Eosin Stain (11/09/2022 11:12 AM EDT) 11/09/2022 11:1 2 AM EDT 11/09/2022 1:45 PM EDT Narrative [facility] - 11/10/2022 2:32 PM EDT ----- ------- Name: Holly Hicks Age/Sex: 61/F : 1960 Unit#: [id number] Attend Dr: Dre Abebe MD Re11/09/22 Status: DEP REF Location: [facility] Disch: ----- ------- SPEC : [id number] RECD: 11/09/22134 STATUS: EBENEZER CALDERA NUM: [id number] SANDY: 11/09/22-[address] [facility] [address]: Dre Abebe MD ENTERED: 11/09/222348 SP TYPE: Surgical OTHR DR: Keely Townsend [...] A. CEDS Copies To: Keely Townsend MD [address] [place] [address] [phone] Dre Abebe MD [address] [place] [address]. [place] [phone] ----- ------- Signed (signature on file) Peggy [facility] 11/10/22 1432 ----- ------- END OF REPORT [facility] External Provider LAB BLO OD ORDERABLES Final Result [facility] [address] [place] [address] [phone] documented in this encounter Visit Diagnoses Diagnosis Hypercholesterolemia- Primary Pure hypercholesterolemia Vitamin D deficiency documented in this encounter Care Teams It Sales Consultant Relationship Specialty Start Date End Date Keely Townsend MD [address] [place] [address] PCP - General Family Medicine 11/15/19 Sudheer Ward, RN [address] [place] [address] Registered Nurse Family Medicine 01/07/25 Deepti Segovia 01/07/25 documented as of this encounter
--- OUTSIDE RECORDS SUMMARY | 2025-04-23 09:12 | XMS_ITS | Encounter Summary ---
Author Organization [employer] Address [address] [facility] [place] [address] Care Team Providers Care Order Entry Technician Name Role Phone Keely Townsend MD Primary Care Provider + Sudheer Ward RN Unavailable [phone] Deepti Segovia Unavailable Encounter Details Date Type Department Care Team (Late st Contact Info) Description 09/04/2024 Orders Only [facility] MEDICINE [address] [place] [address] ProviderGenevieve MD Social History Tobacco Use Types [...] Description 04/23/2025 9:30 AM EDT Clinical Support [address] [phone] Arrived 07/01/2025 10:30 AM EST Office Visit [address] [address] Keely Townsend MD [address] [place] [address] [phone] documented as of this encounter Goals Goal [...] us Historical Provider HEALTH MAINTENANCE Final Result documented in this encounter Visit Diagnoses Not on filedocumented in this encounter Care Teams Order Entry Technician Relationship Specialty Start Date End Date Keely Townsend MD [address] [place] [phone] PCP - General Family Medicine 11/15/19 Sudheer Ward RN [address] [place] [address] [place] [address] Registered Nurse Family Medicine 01/07/25 Deepti Segovia 01/07/25 documented as of this encounter
--- OUTSIDE RECORDS SUMMARY | 2025-04-23 09:12 | XMS_ITS | Encounter Summary ---
Author Organization [employer] Address 75 [facility] 7t [place] [address] Care Team Providers Care Duplicator Punch Set Up Operator Name Role Phone Keeyl Townsend MD Primary Care Provider + Sudheer Ward RN Unavailable Deepti Segovia Unavailable Reason for Visit * Reason Comments Med Refill Encounter Details Date Type Department Care Team (Late st Contact Info) Description 04/20/2025 Refill [facility] MEDICINE [address] [place] [address] Keely Townsend MD [address] [place] [address] Social History Tobacco Use Types Packs/Day Years [...] Description 04/23/2025 9:30 AM EDT Clinical Support [facility] MEDICINE [address] [place] [phone] Arrived 07/01/2025 10:30 AM EST Office Visit [facility] MEDICINE [address] [place] [address] Keely Townsend MD [address] [place] [phone] documented as of this encounter Goals Goal [...] documented as of this encounter Care Teams Duplicator Punch Set Up Operator Relationship Specialty Start Date End Date Keely Townsend MD [address] [place] [phone] PCP - General Family Medicine 11/15/19 Sudheer Ward, RN [address] [place] [phone] Registered Nurse Family Medicine 01/07/25 Deepti Segovia 01/07/25 documented as of this encounter
--- OUTSIDE RECORDS SUMMARY | 2025-04-23 09:12 | XMS_ITS | Encounter Summary ---
Author Organization [employer] Address 75 [facility] [address]t [place] [address] Care Team Providers Care Wool Merchant Name Role Phone Keely Townsend MD Primary Care Provider + Sudheer Ward RN Unavailable [phone] Deepti Segovia Unavailable Encounter Details Date Type Department Care Team (Latest Contact Info) Description 04/23/2025 Travel Social History Tobacco Use Types Packs/Day [...] Description 04/23/2025 9:30 AM EDT Clinical Support [address] [address] Arrived 07/01/2025 10:30 AM EST Office Visit [address] [address] Keely Townsend MD [address] [place] [phone] documented as of this encounter Goals Goal [...] documented as of this encounter Care Teams Wool Merchant Relationship Specialty Start Date End Date Keely Townsend MD [address] [place] [phone] PCP - General Family Medicine 11/15/19 Sudheer Ward, RAZ [address] [place] [address] Registered Nurse Family Medicine 01/07/25 Deepti Segovia 01/07/25 documented as of this encounter
--- OUTSIDE RECORDS SUMMARY | 2025-04-23 09:12 | XMS_ITS | Encounter Summary ---
Author Organization [employer] Address 75 [facility] [address] [place] [address] Care Team Providers Care Vice President Of Development Name Role Phone Keely Townsend MD Primary Care Provider + Sudheer Ward RN Unavailable [phone] Deepti Segovia Unavailable Encounter Details Date Type Department Care Team (Latest Contact Info) Description 10/11/2021 Abstract [facility] CONVERSIONS Dental, Provider, DDS Social History [...] Description 04/23/2025 9:30 AM EDT Clinical Support [facility] MEDICINE [address] [place] [address] Arrived 07/01/2025 10:30 AM EST Office Visit [facility] [address] [place] [phone] Keely Townsend MD [address] [place] [address] [phone] documented as of this encounter Visit Diagnoses Not on filedocumented in this encounter Care Teams Vice President Of Development Relationship Specialty Start Date End Date Keely Townsend MD [address] [place] [address] [phone] PCP - General Family Medicine 11/15/19 Sudheer Ward, RN [address] [facility] [place] [address] Registered Nurse Family Medicine 01/07/25 Deepti Segovia 01/07/25 documented as of this encounter
[2025-04-23 11:46] LABS: Alanine Aminotransferase 23 U/L (0-31); Albumin Level 4.4 g/dL (3.5-5.0); Alkaline Phosphatase 73 U/L (39-117); Anion Gap 15 (12-20); Aspartate Amino Transferase 23 U/L (5-31); Blood Urea Nitrogen 11 mg/dL (9-16); Calcium 9.4 mg/dL (8.4-10.2); Carbon Dioxide 24 mmol/L (22-29); Chloride 109 mmol/L (96-108); Cholesterol 232 mg/dL (<200); Estimated Glomerular Filt Rate > 60; HDL Cholesterol 41 mg/dL (>40); Potassium 3.3 mmol/L (3.3-5.1); Sodium 145 mmol/L (135-145); Total Protein 7.5 g/dL (6.5-8.0); Triglycerides 174 mg/dL (<150)
[2025-04-23 12:08] LABS: HIV Num 1 0.05 S/CO (0.00-0.99)
[2025-04-23 12:55] LABS: Reflex LDLD? No
== END 2025-04-23 08:41 | disposition home or self-care (01) ==
LOC: HO.HHCL 08:40
PROVIDERS: PCP Internal Medicine; Visit Provider Internal Medicine
DX: Z11.4 Encounter for screening for human immunodeficiency virus [HIV] (principal); E78.00 Pure hypercholesterolemia, unspecified; N76.0 Acute vaginitis; R73.01 Impaired fasting glucose; L30.9 Dermatitis, unspecified
CPT/HCPCS: 36415; 80048; 80061; 80076; 83036; 87389

== ENCOUNTER 2025-05-01 10:00 | Outpatient (REF) | payer MEDICAID, SELFPAY ==
[2025-05-01 15:46] LABS: CT PCR Urine NOT DETECTED (Not Detect.); NG PCR Urine NOT DETECTED (Not Detect.)
== END 2025-05-01 10:01 | disposition home or self-care (01) ==
LOC: HO.HHCL 10:00
PROVIDERS: PCP Internal Medicine; Visit Provider Internal Medicine
DX: A59.01 Trichomonal vulvovaginitis (principal)
CPT/HCPCS: 87491; 87591